=== PATIENT | female | born 1960 | race Hispanic/Latino ===

== ENCOUNTER 2019-06-28 06:52 | Inpatient (IN) | payer MEDICARE, OTHER ==
[2019-06-28] MEDS ORDERED: ONDANSETRON 4 MG/2 ML INJ IV ONE (07:12)
[2019-06-28] MEDS ORDERED: MORPHINE 4 MG/1 ML INJ IV ONE (07:12)
[2019-06-28 07:38] LABS: INR 1.03 (0.87-1.13)
[2019-06-28 07:54] LABS: Basophils # (Auto) 0.1 K/mm3 (0.0-0.1); Basophils % (Auto) 0.6 % (0.0-1.8); Eosinophils # (Auto) 0.1 K/mm3 (0.0-0.4); Eosinophils % (Auto) 1.5 % (0.0-4.3); Hemoglobin 12.4 gm/dl (10.1-14.3); Lymphocytes % (Auto) 10.3 % (13.4-35.0); Mean Corpuscular HGB Conc 33 % (30-34); Mean Corpuscular Volume 87 fl (79-97); Monocytes # (Auto) 0.5 K/mm3 (0.0-0.8); Monocytes % (Auto) 5.6 % (0.0-7.3); Platelet Count 280 K/mm3 (140-440); Red Blood Count 4.24 M/mm3 (3.65-5.03); Red Cell Distribution Width 16.7 % (13.2-15.2)
--- NOTE | 2019-06-28 08:09 | XRay Report ---
CHEST 1 VIEW INDICATION: Shortness of breath. COMPARISON: None FINDINGS: Support devices: A tracheostomy appears in good position at the level of the clavicles. Heart: Within normal limits. Lungs/Pleura: There is linear opacity at the left lung base most consistent with atelectatic changes. If fevers present, early infiltrate could be considered. The remainder of the lungs are clear. No pl eural effusion or pneumothorax. Additional findings: The bony structures are demineralized. At least 2 healing left lateral rib fract ures at levels 5 and 6 are identified. IMPRESSION: Left lower lobe opacity most consistent with atelectatic changes. Subacute left rib fractures. Signer Name: Camden Beyer Jr, MD Signed: 06/28/2019 8:04 AM Workstation Name: [id number]
[2019-06-28 08:21] LABS: BUN/Creatinine Ratio 23; Blood Urea Nitrogen 9 mg/dL (7-17); Calcium 8.7 mg/dL (8.4-10.2); Hemolysis Index 7
[2019-06-28] MEDS ORDERED: SODIUM CHLORIDE 0.9% 1000 ML 1,000 ML IV ONE (08:25)
--- NOTE | 2019-06-28 09:19 | Emergency Department Report ---
ED Shortness of Breath HPI - General Chief Complaint: Dyspnea/Respdistress Stated Complaint: NUSRAT Time Seen by Provider: 06/28/19 07:08 Source: EMS, old records reviewed Mode of arrival: Stretcher Limitations: No Limitations - History of Present Illness Initial Comments: 58-year-old female with a tracheostomy, hypertension, seizures currently at [facility] with recent history of left hip fracture presents to the hospital with complaints of shortness of breath. EMS states the patient was satting in the 50s upon their arrival to the shelter. Upon patient's arrival to the ED she was receiving a nebulized treatment with a mask and her tracheostomy was. Patient appears to have respiratory distress with inspiratory stridor upon arrival. - Related Data Allergies Allergy/AdvReac Type Severity Reaction Status Date / Time amoxicillin [From Augmentin] Allergy Anaphylaxis Verified 06/28/19 07:17 cefdinir [From Omnicef] Allergy Anaphylaxis Verified 06/28/19 07:17 cephalexin [From Keflex] Allergy Anaphylaxis Verified 06/28/19 07:17 clarithromycin Allergy Anaphylaxis Verified 06/28/19 07:17 clavulanic acid Allergy Anaphylaxis Verified 06/28/19 07:17 [From Augmentin] doxycycline Allergy Anaphylaxis Verified 06/28/19 07:17 levofloxacin [From Levaquin] Allergy Anaphylaxis Verified 06/28/19 07:17 Sulfa (Sulfonamide Allergy Anaphylaxis Verified 06/28/19 07:17 Antibiotics) ED Review of Systems ROS: Stated complaint: NUSRAT Other details as noted in HPI Comment: All other systems reviewed and negative ED Past Medical Hx - Past Medical History Previous Medical History?: Yes Hx Hypertension: Yes Hx Seizures: Yes Additional medical history: L hip fx, trach, hearing loss - Social History Smoking Status: Never Smoker ED Physical Exam - General Limitations: No Limitations - Other Other exam information: Gen.: Positive respiratory distress Head: Atraumatic Eyes: Normal appearance ENT: Moist mucous membranes Neck: Normal appearance, tracheostomy uncuffed tube Chest: Tachypnea, expiratory stridor Cardiovascular: Tachycardic regular rhythm Abdomen: Normal appearance, soft, nontender, no rebound or guarding, normal bowel sounds. No PEG tube Back: Normal appearance, nontender Extremity: Full range of motion, normal appearance, no edema Neuro: Alert, clear speech, no focal motor or sensory deficit Psychiatric: Appropriate Skin: No rash ED Course Vital Signs 06/28/19 06/28/19 06/28/19 06:59 07:08 07:28 Temperature 98.4 F Pulse Rate 123 H Respiratory 28 H Rate Blood Pressure 136/84 Blood Pressure [Left] O2 Sat by Pulse 96 99 Oximetry O2 Sat by Pulse 99 Oximetry [ Assessment] 06/28/19 06/28/19 06/28/19 07:30 07:55 08:00 Temperature 98.2 F Pulse Rate 130 H Respiratory 13 Rate Blood Pressure 117/60 117/60 Blood Pressure 114/69 [Left] O2 Sat by Pulse 99 100 100 Oximetry O2 Sat by Pulse Oximetry [ Assessment] 06/28/19 06/28/19 06/28/19 08:15 08:20 08:30 Temperature 99 F Pulse Rate 119 H 111 H Respiratory 14 15 Rate Blood Pressure 108/79 120/69 Blood Pressure 115/70 [Left] O2 Sat by Pulse 100 99 91 Oximetry O2 Sat by Pulse Oximetry [ Assessment] 06/28/19 06/28/19 06/28/19 08:45 09:00 09:15 Temperature Pulse Rate 102 H 104 H 93 H Respiratory 10 L 8 L 9 L Rate Blood Pressure 99/69 112/72 114/65 Blood Pressure [Left] O2 Sat by Pulse 100 100 Oximetry O2 Sat by Pulse Oximetry [ Assessment] 06/28/19 06/28/19 06/28/19 09:30 09:56 10:00 Temperature Pulse Rate 91 H 108 H 103 H Respiratory 7 L 12 Rate Blood Pressure 128/71 128/71 131/70 Blood Pressure [Left] O2 Sat by Pulse Oximetry O2 Sat by Pulse Oximetry [ Assessment] 06/28/19 06/28/19 06/28/19 10:15 10:30 10:45 Temperature Pulse Rate 100 H 99 H 103 H Respiratory 8 L 8 L 12 Rate Blood Pressure 135/75 142/81 131/89 Blood Pressure [Left] O2 Sat by Pulse 100 100 Oximetry O2 Sat by Pulse Oximetry [ Assessment] 06/28/19 06/28/19 11:00 11:15 Temperature Pulse Rate 101 H 106 H Respiratory 10 L 10 L Rate Blood Pressure 132/81 124/84 Blood Pressure [Left] O2 Sat by Pulse 100 Oximetry O2 Sat by Pulse Oximetry [ Assessment] - Reevaluation(s) Reevaluation #1: 06/28/19 07:08 Respiratory therapist contacted upon patient's arrival to the ED. Tracheostomy was removed and minimum secretions were obtained with suctioning. Patient placed on the Ventimask at 50% via tracheostomy. O2 saturation 99% and patient's respiratory distress has improved. ABG does not show any signs of CO2 retention and shows adequate oxygenation. Patient has a uncuffed tracheostomy tube at this time. ED Medical Decision Making - Lab Data Result diagrams: 06/28/19 07:12 06/28/19 07:12 Lab Results 06/28/19 06/28/19 06/28/19 Range/Units 06:38 07:12 07:12 WBC 9.7 (4.5-11.0) K/mm3 RBC 4.24 (3.65-5.03) M/mm3 Hgb 12.4 (10.1-14.3) gm/dl Hct 37.0 (30.3-42.9) % MCV 87 (79-97) fl MCH 29 (28-32) pg MCHC 33 (30-34) % RDW 16.7 H (13.2-15.2) % Plt Count 280 (140-440) K/mm3 Lymph % (Auto) 10.3 L (13.4-35.0) % [place] % (Auto) 5.6 (0.0-7.3) % Eos % (Auto) 1.5 (0.0-4.3) % Baso % (Auto) 0.6 (0.0-1.8) % Lymph # 1.0 L (1.2-5.4) K/mm3 [place] # 0.5 (0.0-0.8) K/mm3 Eos # 0.1 (0.0-0.4) K/mm3 Baso # 0.1 (0.0-0.1) K/mm3 Seg Neutrophils % 82.0 H (40.0-70.0) % Seg Neutrophils # 8.0 H (1.8-7.7) K/mm3 PT 13.2 (12.2-14.9) Sec. INR 1.03 (0.87-1.13) D-Dimer (0-234) ng/mlDDU POC ABG pH (7.35-7.45) POC ABG pCO2 (35-45) POC ABG pO2 (80-105) POC ABG HCO3 (22-26 mml/L) POC ABG Total CO2 (23-27mmol/L) POC ABG O2 Sat POC ABG Base Excess ((-2) - (+3)mmol/L) FiO2 % Sodium (137-145) mmol/L Potassium (3.6-5.0) mmol/L Chloride (98-107) mmol/L Carbon Dioxide (22-30) mmol/L Anion Gap mmol/L BUN (7-17) mg/dL Creatinine (0.7-1.2) mg/dL Estimated GFR ml/min BUN/Creatinine Ratio % Glucose (65-100) mg/dL Calcium (8.4-10.2) mg/dL Troponin T (0.00-0.029) ng/mL Urine Color Yellow (Yellow) Urine Turbidity Clear (Clear) Urine pH 6.0 (5.0-7.0) Ur Specific [place] 1.020 (1.003-1.030) Urine Protein >500 (Negative) mg/dL Urine Glucose (UA) Neg (Negative) mg/dL Urine Ketones Neg (Negative) mg/dL Urine Blood Sm (Negative) Urine Nitrite Neg (Negative) Urine Bilirubin Neg (Negative) Urine Urobilinogen < 2.0 (<2.0) mg/dL Ur Leukocyte Esterase Neg (Negative) Urine WBC (Auto) 5.0 (0.0-6.0) /HPF Urine RBC (Auto) 6.0 (0.0-6.0) /HPF U Epithel Cells (Auto) < 1.0 (0-13.0) /HPF Urine Bacteria (Auto) 1+ (Negative) /HPF Hyaline Casts 2 /LPF Urine Mucus Few /HPF 06/28/19 06/28/19 06/28/19 Range/Units 07:12 07:12 07:22 WBC (4.5-11.0) K/mm3 RBC (3.65-5.03) M/mm3 Hgb (10.1-14.3) gm/dl Hct (30.3-42.9) % MCV (79-97) fl MCH (28-32) pg MCHC (30-34) % RDW (13.2-15.2) % Plt Count (140-440) K/mm3 Lymph % (Auto) (13.4-35.0) % [place] % (Auto) (0.0-7.3) % Eos % (Auto) (0.0-4.3) % Baso % (Auto) (0.0-1.8) % Lymph # (1.2-5.4) K/mm3 [place] # (0.0-0.8) K/mm3 Eos # (0.0-0.4) K/mm3 Baso # (0.0-0.1) K/mm3 Seg Neutrophils % (40.0-70.0) % Seg Neutrophils # (1.8-7.7) K/mm3 PT (12.2-14.9) Sec. INR (0.87-1.13) D-Dimer > 80883 H (0-234) ng/mlDDU POC ABG pH 7.390 (7.35-7.45) POC ABG pCO2 45.1 H (35-45) POC ABG pO2 75 L (80-105) POC ABG HCO3 27.3 (22-26 mml/L) POC ABG Total CO2 29 (23-27mmol/L) POC ABG O2 Sat 95 POC ABG Base Excess 2 ((-2) - (+3)mmol/L) FiO2 50 % Sodium 120 L (137-145) mmol/L Potassium 4.1 (3.6-5.0) mmol/L Chloride 84.0 L (98-107) mmol/L Carbon Dioxide 23 (22-30) mmol/L Anion Gap 17 mmol/L BUN 9 (7-17) mg/dL Creatinine 0.4 L (0.7-1.2) mg/dL Estimated GFR > 60 ml/min BUN/Creatinine Ratio 23 % Glucose 136 H (65-100) mg/dL Calcium 8.7 (8.4-10.2) mg/dL Troponin T < 0.010 (0.00-0.029) ng/mL Urine Color (Yellow) Urine Turbidity (Clear) Urine pH (5.0-7.0) Ur Specific [place] (1.003-1.030) Urine Protein (Negative) mg/dL Urine Glucose (UA) (Negative) mg/dL Urine Ketones (Negative) mg/dL Urine Blood (Negative) Urine Nitrite (Negative) Urine Bilirubin (Negative) Urine Urobilinogen (<2.0) mg/dL Ur Leukocyte Esterase (Negative) Urine WBC (Auto) (0.0-6.0) /HPF Urine RBC (Auto) (0.0-6.0) /HPF U Epithel Cells (Auto) (0-13.0) /HPF Urine Bacteria (Auto) (Negative) /HPF Hyaline Casts /LPF Urine Mucus /HPF - EKG Data -: EKG Interpreted by Pr EKG shows normal: sinus rhythm, ST-T waves (no stemi) Rate: tachycardia (131) - EKG Data When compared to previous EKG there are: previous EKG unavailable - Radiology Data Radiology results: report reviewed CTA chest with contrast INDICATION : sob, elevated ddimer. TECHNIQUE: Axial imaging performed through the chest, with contrast bolus timing set to maximize opacification of the pulmonary arteries. 3-plane MIP reformatted images were obtained. All CT scans at this location are performed using CT dose reduction for ALARA by means of automated exposure control. 100 mL of intravenous contrast administered. Consent was obtained prior to the administration of contrast. COMPARISON: None. FINDINGS: Bolus: Contrast bolus timing is adequate. PTE: No filling defect is present to suggest PTE. Mediastinum: Heart and great vessels appear normal. No pathologic mediastinal adenopathy. Lungs: Lungs are clear except for mild bibasal subsegmental atelectasis. Upper abdomen: Limited imaging of the upper abdomen shows nothing acute. Bones: No suspicious bone lesion. IMPRESSION: Negative for PTE. No CHF or pneumonia. CHEST 1 VIEW INDICATION: Shortness of breath. COMPARISON: None FINDINGS: Support devices: A tracheostomy appears in good position at the level of the clavicles. Heart: Within normal limits. Lungs/Pleura: There is linear opacity at the left lung base most consistent with atelectatic changes. If fevers present, early infiltrate could be considered. The remainder of the lungs are clear. No pleural effusion or pneumothorax. Additional findings: The bony structures are demineralized. At least 2 healing left lateral rib fractures at levels 5 and 6 are identified. IMPRESSION: Left lower lobe opacity most consistent with atelectatic changes. Subacute left rib fractures. - Medical Decision Making bilateral doppler pending at dispo cta neg for pe + hyponatremia, NS ordered urine lytes and ua pending Plan to admit to hospitalist service - Differential Diagnosis CHF, COPD, pneumonia, pulmonary embolism, tracheostomy obstruction Critical Care Time: No Critical care attestation.: If time is entered above; I have spent that time in minutes in the direct care of this critically ill patient, excluding procedure time. ED Disposition Clinical Impression: Hyponatremia, Tracheostomy dependent, Hypoxia, Elevated d-dimer Disposition: OP ADMIT IP TO THIS HOSP Is pt being admited?: Yes Condition: Stable Time of Disposition: 11:24 (Dr Robledo/hosp)
--- NOTE | 2019-06-28 10:50 | Cat Scan Report ---
CTA chest with contrast INDICATION : sob, elevated ddimer. TECHNIQUE: Axial imaging performed through the chest, with contrast bolus timing set to maximize opa cification of the pulmonary arteries. 3-plane MIP reformatted images were obtained. All CT scans at this location are performed using CT dose reduction for ALARA by means of automated exposure control. 100 mL of intravenous contrast administered. Consent was obtained prior to the administration of cont rast. COMPARISON: None. FINDINGS: Bolus: Contrast bolus timing is adequate. PTE: No filling defect is present to suggest PTE. Mediastinum: Heart and great vessels appear normal. No pathologic mediastinal adenopathy. Lungs: Lungs are clear except for mild bibasal subsegmental atelectasis. Upper abdomen: Limited imaging of the upper abdomen shows nothing acute. Bones: No suspicious bone lesion. IMPRESSION: Negative for PTE. No CHF or pneumonia. Signer Name: Huy Quevedo MD Signed: 06/28/2019 10:46 AM Workstation Name: [id number]
[2019-06-28 11:11] LABS: Bacteria,Urine 1+ /HPF (Negative); Bilirubin,Urine NEG (Negative); Blood,Urine SM (Negative); Color,Urine Yellow (Yellow); Hyaline Casts,Urine 2 /LPF; Mucus,Urine FEW /HPF; Urobilinogen,Urine < 2.0 mg/dL (<2.0)
[2019-06-28 11:13] LABS: Protein,Urine >500 mg/dL (Negative)
[2019-06-28] MEDS ORDERED: ALBUTEROL 2.5 MG/3 ML NEBU IH PRN (12:20)
--- NOTE | 2019-06-28 12:20 | History and Physical Report ---
History of Present Illness Chief complaint: She cant breathe History of present illness: 58 YO Female Skilled [facility] Resident at [facility] with Chronic Respiratory Failure with Trach in place, HTN, Seizure Disorder, Debility presents to ED for evaluation. Pt is unable to provide detailed history. Pt history taken from medical record as well as ED staff, and [facility] staff. As per staff, the patient was found to be in respiratory distress this morning with discharge coming from [facility] site. Pulse oximetry was taken and the patient was found to have pulse oximetry in the 50's. EMS notified and upon arrival the patient was found to be in respiratory distress and treated with supplemental oxygen and nebulizer therapy without significant improvement. Pt transported to [facility]. Pt seen and evaluated in ED and found to have Acute on Chronic hypoxemic Respiratory Failure complicated by LLL Pneumonia. At time of my exam the patient is lethargic, and using accessory muscles to breathe S/P nebulizer therapy and is unable to provide history. Pt is ill appearing. Pt admitted to IMCU and initiated on HCAP protocol. No prior admission for review. No medication listed at time of admission for reconciliation. Past History Past Medical History: hypertension, other (Debility, Seizure Disorder) Past Surgical History: Other (Trach, Left Hip Surgery) Social history: . denies: smoking, alcohol abuse, prescription drug abuse Family history: hypertension Medications and Allergies Allergies Allergy/AdvReac Type Severity Reaction Status Date / Time amoxicillin [From Augmentin] Allergy Anaphylaxis Verified 06/28/19 07:17 cefdinir [From Omnicef] Allergy Anaphylaxis Verified 06/28/19 07:17 cephalexin [From Keflex] Allergy Anaphylaxis Verified 06/28/19 07:17 clarithromycin Allergy Anaphylaxis Verified 06/28/19 07:17 clavulanic acid Allergy Anaphylaxis Verified 06/28/19 07:17 [From Augmentin] doxycycline Allergy Anaphylaxis Verified 06/28/19 07:17 levofloxacin [From Levaquin] Allergy Anaphylaxis Verified 06/28/19 07:17 Sulfa (Sulfonamide Allergy Anaphylaxis Verified 06/28/19 07:17 Antibiotics) Review of Systems ROS unobtainable: due to mental status Exam - Constitutional Vitals: Temp Pulse Resp BP Pulse Ox 99 F 102 H 9 L 124/76 94 06/28/19 08:20 06/28/19 12:00 06/28/19 12:00 06/28/19 12:00 06/28/19 12:00 General appearance: Present: mild distress - EENT Eyes: Present: miosis ENT: dentition normal, other - Neck Neck: Present: supple, normal ROM, other (trach in place,) - Respiratory Respiratory effort: labored, accessory muscle use, stridor Respiratory: bilateral: diminished, rhonchi - Cardiovascular Rhythm: other (tachycardia) Heart Sounds: Present: S1 & S2. Absent: rub, click - Extremities Extremities: abnormal Extremity abnormal: deformity Peripheral Pulses: within normal limits - Abdominal General gastrointestinal: Present: soft, non-tender, non-distended, normal bowel sounds Female genitourinary: Present: normal - Integumentary Integumentary: Present: clear, dry, pale, decreased turgor - Musculoskeletal Musculoskeletal: generalized weakness - Psychiatric Psychiatric: no appropriate mood/affect, no intact judgment & insight, no memory intact - Neurologic Neurologic: moves all extremities, no gait normal Results - Labs CBC & Chem 7: 06/28/19 07:12 06/28/19 07:12 Labs: Abnormal lab results 06/28/19 06/28/19 06/28/19 Range/Units 07:12 07:12 07:12 RDW 16.7 H (13.2-15.2) % Lymph % (Auto) 10.3 L (13.4-35.0) % Lymph # 1.0 L (1.2-5.4) K/mm3 Seg Neutrophils % 82.0 H (40.0-70.0) % Seg Neutrophils # 8.0 H (1.8-7.7) K/mm3 D-Dimer > 28895 H (0-234) ng/mlDDU POC ABG pCO2 (35-45) POC ABG pO2 (80-105) Sodium 120 L (137-145) mmol/L Chloride 84.0 L (98-107) mmol/L Creatinine 0.4 L (0.7-1.2) mg/dL Glucose 136 H (65-100) mg/dL 06/28/19 Range/Units 07:22 RDW (13.2-15.2) % Lymph % (Auto) (13.4-35.0) % Lymph # (1.2-5.4) K/mm3 Seg Neutrophils % (40.0-70.0) % Seg Neutrophils # (1.8-7.7) K/mm3 D-Dimer (0-234) ng/mlDDU POC ABG pCO2 45.1 H (35-45) POC ABG pO2 75 L (80-105) Sodium (137-145) mmol/L Chloride (98-107) mmol/L Creatinine (0.7-1.2) mg/dL Glucose (65-100) mg/dL Assessment and Plan - Patient Problems (1) Acute and chronic respiratory failure Current Visit: Yes Status: Acute Qualifiers: Respiratory failure complication: hypoxia Qualified Code(s): J96.21 - Acute and chronic respiratory failure with hypoxia Plan to address problem: Admit to IMCU, Chest X ray, D dimer, CTA chest to evaluate for PE, pulse oximetry, nebulizer therapy, NIPPV as clinically indicated, ABG, pulmonary toilet. Trach Care. (2) Pneumonia Current Visit: Yes Status: Acute Qualifiers: Laterality: left Lung location: lower lobe of lung Plan to address problem: HCAP Protocol: IV antibiotic therapy, IVF resuscitation therapy, Chest X ray, CTA chest, supplemental oxygen, nebulizer therapy, pulse oximetry, CBC, CMP, blood cultures. (3) HTN (hypertension) Current Visit: Yes Status: Acute Qualifiers: Hypertension type: essential hypertension Qualified Code(s): I10 - Essential (primary) hypertension Plan to address problem: Monitor BP q shift, supportive care. (4) Seizure Current Visit: Yes Status: Acute Plan to address problem: Seizure precautions, supportive care, neuro checks (5) Debility Current Visit: Yes Status: Acute Plan to address problem: supportive care, PT consulted (6) DVT prophylaxis Current Visit: Yes Status: Acute Plan to address problem: SCD to BLE while in bed, prophylactic heparin.
[2019-06-28] MEDS ORDERED: VANCOMYCIN 1,000 MG in SODIUM CHLORIDE 0.9% 500 ML 500 ML IV ONE (12:23)
[2019-06-28] MEDS ORDERED: VANCOMYCIN PHARMACY TO DOSE IV SCH (13:00)
[2019-06-28] MEDS: VANCOMYCIN/NS 1 GM/250 ML 1 GM/250 ML BAG IV SCH (15:18)
[2019-06-28] MEDS ORDERED: NON-FORMULARY EACH (Ondansetron [Zofran Tab] 4 MG) PO PRN (17:33)
[2019-06-28] MEDS ORDERED: IPRATROPIUM/ALBUTEROL SULFATE 3 ML AMPUL.NEB IH SCH (18:00)
[2019-06-28] MEDS ORDERED: ONDANSETRON 4 MG ODT TAB PO PRN (18:05)
[2019-06-28] MEDS: ACETAMINOPHEN 325 MG TAB PO SCH (18:30)
[2019-06-28] MEDS: IPRATROPIUM/ALBUTEROL SULFATE 3 ML AMPUL.NEB IH SCH (19:36)
[2019-06-28] MEDS ORDERED: hydrALAZINE 20 MG/1 ML INJ IV PRN (21:48)
[2019-06-28] MEDS: traMADol 50 MG TAB PO SCH (21:52)
[2019-06-28] MEDS: METOPROLOL TARTRATE 25 MG TAB PO SCH (21:52)
[2019-06-28] MEDS ORDERED: NON-FORMULARY EACH (Levetiracetam [Keppra Tab] 1,000 MG) PO SCH (22:00)
[2019-06-28] MEDS ORDERED: levETIRAcetam 500 MG TAB PO SCH (22:00)
[2019-06-28] MEDS: levETIRAcetam 1,000 MG in DEXTROSE 5% IN WATER 100 ML IV SCH (22:41)
[2019-06-28] MEDS: HEPARIN 5,000 UNIT/1 ML VIAL SUB-Q SCH (22:41)
--- NOTE | 2019-06-29 00:24 | Vascular Lab Report ---
DUPLEX DOPPLER LOWER EXTREMITY VEINS, BILATERAL INDICATION / CLINICAL INFORMATION: elevated d-dimer. TECHNIQUE: Duplex doppler imaging was performed through the veins of both lower extremities using venous liliana john and other maneuvers. COMPARISON: None available. FINDINGS: RIGHT COMMON FEMORAL VEIN: Negative. RIGHT FEMORAL VEIN: Negative. RIGHT POPLITEAL VEIN: Negative. RIGHT CALF VEINS: Negative. LEFT COMMON FEMORAL VEIN: Negative. LEFT FEMORAL VEIN: Negative. LEFT POPLITEAL VEIN: Negative. LEFT CALF VEINS: Negative. ADDITIONAL FINDINGS: None. IMPRESSION: 1. No sonographic evidence for DVT in either lower extremity. Signer Name: Nicki Hernandez MD Signed: 06/29/2019 12:20 AM Workstation Name: [id number]
[2019-06-29] MEDS: IPRATROPIUM/ALBUTEROL SULFATE 3 ML AMPUL.NEB IH SCH ×4 (02:43→21:29)
[2019-06-29] MEDS: VANCOMYCIN/NS 1 GM/250 ML 1 GM/250 ML BAG IV SCH ×2 (04:22→13:26)
[2019-06-29 05:23] LABS: Hematocrit TNR % (30.3-42.9); Hemoglobin TNR gm/dl (10.1-14.3); Red Blood Count TNR M/mm3 (3.65-5.03)
[2019-06-29 05:24] LABS: Eosinophils % (Auto) TNR % (0.0-4.3); Lymphocytes % (Auto) TNR % (13.4-35.0); Mean Corpuscular HGB Conc TNR % (30-34); Mean Corpuscular Volume TNR fl (79-97); Mean Platelet Volume TNR fl (6-12); Monocytes % (Auto) TNR % (0.0-7.3); Platelet Count TNR K/mm3 (140-440); Red Cell Distribution Width TNR % (13.2-15.2)
[2019-06-29 05:25] LABS: Basophils # (Auto) TNR K/mm3 (0.0-0.1); Basophils % (Auto) TNR % (0.0-1.8); Eosinophils # (Auto) TNR K/mm3 (0.0-0.4); Lymphocytes # (Auto) TNR K/mm3 (1.2-5.4); Monocytes # (Auto) TNR K/mm3 (0.0-0.8)
[2019-06-29 05:39] LABS: Basophils # (Auto) 0.1 K/mm3 (0.0-0.1); Eosinophils # (Auto) 0.1 K/mm3 (0.0-0.4); Eosinophils % (Auto) 0.9 % (0.0-4.3); Hemoglobin 11.2 gm/dl (10.1-14.3); Lymphocytes % (Auto) 13.5 % (13.4-35.0); Mean Corpuscular HGB Conc 33 % (30-34); Mean Corpuscular Volume 89 fl (79-97); Monocytes # (Auto) 0.7 K/mm3 (0.0-0.8); Monocytes % (Auto) 8.8 % (0.0-7.3); Platelet Count 281 K/mm3 (140-440); Red Blood Count 3.83 M/mm3 (3.65-5.03); Red Cell Distribution Width 17.4 % (13.2-15.2)
[2019-06-29 06:08] LABS: Alanine Aminotransferase 15 units/L (7-56); BUN/Creatinine Ratio 23; Blood Urea Nitrogen 7 mg/dL (7-17); Calcium 8.5 mg/dL (8.4-10.2); Hemolysis Index 6
[2019-06-29] MEDS: ACETAMINOPHEN 325 MG TAB PO SCH ×4 (06:41→20:06)
[2019-06-29] MEDS: SODIUM CHLORIDE 1 GM TAB PO SCH ×3 (07:30→20:06)
[2019-06-29] MEDS: HEPARIN 5,000 UNIT/1 ML VIAL SUB-Q SCH ×2 (10:32→22:27)
[2019-06-29] MEDS: levETIRAcetam 1,000 MG in DEXTROSE 5% IN WATER 100 ML IV SCH ×2 (10:32→22:26)
[2019-06-29] MEDS: MORPHINE 2 MG/1 ML INJ IV PRN ×2 (11:39→19:28)
--- NOTE | 2019-06-29 15:43 | Fluoroscopy Report ---
MODIFIED BARIUM SWALLOW INDICATION: Swallow evaluation on patient with tracheostomy/dysphagia TECHNIQUE: Swallowing was evaluated in the lateral position under direct fluoroscopy. FINDINGS: The patient was evaluated with thin liquids, puree, semisolids and solid consistencies.. Penetration was noted with all consistencies. One episode of silent aspiration was noted with thin liquids. Please refer to the formal report by speech therapy. IMPRESSION: Silent aspiration was witnessed with thin liquids. See above. Fluoroscopic time: 2.3 minutes Number of fluoroscopic images: 1 Signer Name: Camden Beyer Jr, MD Signed: 06/29/2019 3:39 PM Workstation Name: [id number]
--- NOTE | 2019-06-29 16:59 | Progress Note ---
Assessment and Plan / Acute and chronic respiratory failure cont pulse oximetry, nebulizer therapy, NIPPV as clinically indicated, ABG, pulmonary toilet. Trach Care. Pulmonary consulted / Pneumonia, suspected HCAP Protocol: cont IV antibiotic therapy, IVF resuscitation therapy,supplemental oxygen, nebulizer therapy, pulse oximetry, / HTN (hypertension) Monitor BP q shift, supportive care. / Seizure Seizure precautions, supportive care, neuro checks / Debility supportive care, PT consulted / DVT prophylaxis SCD to BLE while in bed, prophylactic heparin. Brief History: 58-year-old female with a tracheostomy, hypertension, seizures currently at [facility] with recent history of left hip fracture presents to the hospital with complaints of shortness of breath. EMS states the patient was satting in the 50s upon their arrival to the correction. Upon patient's arrival to the ED she was receiving a nebulized treatment with a mask and her tracheostomy was. Patient appears to have respiratory distress with inspiratory stridor upon arrival. Physical exam: General appearance: Present: mild distress - EENT Eyes: Present: miosis ENT: dentition normal, other - Neck Neck: Present: supple, normal ROM, other (trach in place,) - Respiratory Respiratory effort: labored, accessory muscle use, stridor Respiratory: bilateral: diminished, rhonchi - Cardiovascular Rhythm: other (tachycardia) Heart Sounds: Present: S1 & S2. Absent: rub, click - Extremities Extremities: abnormal Extremity abnormal: deformity Peripheral Pulses: within normal limits - Abdominal General gastrointestinal: Present: soft, non-tender, non-distended, normal bowel sounds Female genitourinary: Present: normal - Integumentary Integumentary: Present: clear, dry, pale, decreased turgor - Musculoskeletal Musculoskeletal: generalized weakness - Psychiatric Psychiatric: no appropriate mood/affect, no intact judgment & insight, no memory intact - Neurologic Neurologic: moves all extremities, no gait normal Subjective Date of service: 06/29/19 Interval history: Patient seen and examined patient on trach, able to follow commend Objective - Constitutional Vitals: Vital Signs - 12hr 06/29/19 06/29/19 06/29/19 05:00 06:00 07:00 Temperature Pulse Rate 85 86 85 Pulse Rate [ Bilateral] Pulse Rate [ From Monitor] Respiratory 11 L 12 12 Rate Respiratory Rate [Bilateral ] Blood Pressure 118/68 121/67 120/73 O2 Sat by Pulse 100 100 Oximetry 06/29/19 06/29/19 06/29/19 08:00 09:00 09:12 Temperature 99.7 F H Pulse Rate 91 H 86 Pulse Rate [ 94 H Bilateral] Pulse Rate [ 91 H From Monitor] Respiratory 12 10 L Rate Respiratory 16 Rate [Bilateral ] Blood Pressure 118/71 113/89 O2 Sat by Pulse 100 100 Oximetry 06/29/19 06/29/19 09:14 12:00 Temperature 97.5 F L Pulse Rate Pulse Rate [ Bilateral] Pulse Rate [ From Monitor] Respiratory Rate Respiratory Rate [Bilateral ] Blood Pressure O2 Sat by Pulse 100 Oximetry - Labs CBC & Chem 7: 06/29/19 05:25 06/30/19 09:36 Labs: Abnormal lab results 06/29/19 06/29/19 Range/Units 04:29 05:25 RDW 17.4 H (13.2-15.2) % Carbon % (Auto) 8.8 H (0.0-7.3) % Lymph # 1.0 L (1.2-5.4) K/mm3 Seg Neutrophils % 75.8 H (40.0-70.0) % Sodium 126 L (137-145) mmol/L Chloride 90.6 L (98-107) mmol/L Carbon Dioxide 19 L (22-30) mmol/L Creatinine 0.3 L (0.7-1.2) mg/dL Alkaline Phosphatase 227 H (35-129) units/L Albumin 3.0 L (3.9-5) g/dL
[2019-06-29] MEDS: traMADol 50 MG TAB PO SCH ×2 (19:54→22:26)
[2019-06-29] MEDS: ESCITALOPRAM 10 MG TAB PO SCH (19:54)
[2019-06-29] MEDS: METOPROLOL TARTRATE 25 MG TAB PO SCH ×2 (19:54→22:26)
[2019-06-30] MEDS: ACETAMINOPHEN 325 MG TAB PO SCH ×4 (00:15→17:43)
[2019-06-30] MEDS: VANCOMYCIN/NS 1 GM/250 ML 1 GM/250 ML BAG IV SCH ×2 (03:10→14:02)
[2019-06-30] MEDS: MORPHINE 2 MG/1 ML INJ IV PRN (03:11)
[2019-06-30] MEDS: IPRATROPIUM/ALBUTEROL SULFATE 3 ML AMPUL.NEB IH SCH ×4 (05:11→21:13)
[2019-06-30] MEDS: HEPARIN 5,000 UNIT/1 ML VIAL SUB-Q SCH ×2 (10:07→22:10)
[2019-06-30] MEDS: levETIRAcetam 1,000 MG in DEXTROSE 5% IN WATER 100 ML IV SCH ×2 (10:07→22:09)
[2019-06-30] MEDS: METOPROLOL TARTRATE 25 MG TAB PO SCH ×2 (10:08→22:09)
[2019-06-30] MEDS: traMADol 50 MG TAB PO SCH ×2 (10:08→22:09)
[2019-06-30] MEDS: SODIUM CHLORIDE 1 GM TAB PO SCH ×3 (10:09→17:43)
[2019-06-30] MEDS: ESCITALOPRAM 10 MG TAB PO SCH (10:09)
[2019-06-30 10:50] LABS: BUN/Creatinine Ratio 20; Blood Urea Nitrogen 6 mg/dL (7-17); Calcium 8.9 mg/dL (8.4-10.2); Hemolysis Index 265
[2019-06-30] MEDS ORDERED: AZTREONAM/NS 1 GM/50 ML 1 GM/50 ML VIAL IV ONE (11:00)
--- NOTE | 2019-06-30 15:58 | Event Note ---
Date: 06/30/19 Received consultation for pneumonia. patient is currently without evidence of sepsis, no fever, leukocytosis or bandemia. Reviewed CXR and CTA chest w/o evidence of consolidation. Likely COPD exacerabation which commonly can be caused by viruses. Will request procalcitonin and if normal will stop antibiotics. Full consultation to follow-up.
[2019-06-30] MEDS ORDERED: SODIUM POLYSTYRENE 15 GM/60 ML ORAL LIQD PO PRN (17:14)
--- NOTE | 2019-06-30 23:54 | Progress Note ---
Assessment and Plan / Acute and chronic respiratory failure likely from aspiration Pneumonitis cont pulse oximetry, nebulizer therapy, NIPPV as clinically indicated, ABG, pulmonary toilet. Trach Care. Pulmonary following / Pneumonia, suspected placed on HCAP Protocol: IV antibiotic therapy, IVF resuscitation therapy,supplemental oxygen, nebulizer therapy, pulse oximetry, CTA chest showed no PNA ID recommended to stop abx / HTN (hypertension) Monitor BP q shift, supportive care. / Seizure Seizure precautions, supportive care, neuro checks / Debility supportive care, PT consulted /Moderate PCM, nutrition consulted / DVT prophylaxis SCD to BLE while in bed, prophylactic heparin. Disposition: SNF if remains stable after stopping abx Brief History: 58-year-old female with a tracheostomy, hypertension, seizures currently at [facility] with recent history of left hip fracture presents to the hospital with complaints of shortness of breath. EMS states the patient was satting in the 50s upon their arrival to the [facility]. Upon patient's arrival to the ED she was receiving a nebulized treatment with a mask and her tracheostomy was. Patient appears to have respiratory distress with inspiratory stridor upon arrival. Physical exam: General appearance: Present: no distress - EENT Eyes: Present: miosis ENT: dentition normal, other - Neck Neck: Present: supple, normal ROM, other (trach in place,) - Respiratory Respiratory effort: nonlabored, no accessory muscle use, Respiratory: bilateral: diminished, rhonchi - Cardiovascular Rhythm: other (tachycardia) Heart Sounds: Present: S1 & S2. Absent: rub, click - Extremities Extremities: abnormal Extremity abnormal: deformity Peripheral Pulses: within normal limits - Abdominal General gastrointestinal: Present: soft, non-tender, non-distended, normal bowel sounds Female genitourinary: Present: normal - Integumentary Integumentary: Present: clear, dry, pale, decreased turgor - Musculoskeletal Musculoskeletal: generalized weakness - Psychiatric Psychiatric: no appropriate mood/affect, no intact judgment & insight, no memory intact - Neurologic Neurologic: moves all extremities, no gait normal Subjective Date of service: 06/30/19 Interval history: Patient seen and examined patient on trach, able to follow commend speech recommended pureed diet Objective - Constitutional Vitals: Vital Signs - 12hr 06/30/19 06/30/19 06/30/19 12:00 13:00 14:00 Temperature 97.9 F Pulse Rate 68 66 68 Pulse Rate [ Bilateral] Pulse Rate [ 71 From Monitor] Respiratory 13 8 L 9 L Rate Respiratory Rate [Bilateral ] Blood Pressure 138/69 145/77 133/74 Blood Pressure [Left] O2 Sat by Pulse 100 100 98 Oximetry O2 Sat by Pulse Oximetry [ Assessment] 06/30/19 06/30/19 06/30/19 14:30 15:00 16:00 Temperature 98 F Pulse Rate 74 71 Pulse Rate [ 66 Bilateral] Pulse Rate [ From Monitor] Respiratory 8 L 9 L Rate Respiratory 16 Rate [Bilateral ] Blood Pressure 133/74 133/74 Blood Pressure [Left] O2 Sat by Pulse Oximetry O2 Sat by Pulse Oximetry [ Assessment] 06/30/19 06/30/19 06/30/19 16:59 17:00 17:10 Temperature Pulse Rate 87 80 Pulse Rate [ Bilateral] Pulse Rate [ From Monitor] Respiratory 15 8 L Rate Respiratory Rate [Bilateral ] Blood Pressure 136/86 136/86 Blood Pressure [Left] O2 Sat by Pulse 100 100 Oximetry O2 Sat by Pulse 100 Oximetry [ Assessment] 06/30/19 06/30/19 06/30/19 17:20 17:30 17:40 Temperature Pulse Rate 77 74 75 Pulse Rate [ Bilateral] Pulse Rate [ From Monitor] Respiratory 9 L 13 10 L Rate Respiratory Rate [Bilateral ] Blood Pressure 136/86 136/86 136/86 Blood Pressure [Left] O2 Sat by Pulse 100 100 100 Oximetry O2 Sat by Pulse Oximetry [ Assessment] 06/30/19 06/30/19 06/30/19 17:50 18:00 18:10 Temperature Pulse Rate 77 82 79 Pulse Rate [ Bilateral] Pulse Rate [ From Monitor] Respiratory 13 13 7 L Rate Respiratory Rate [Bilateral ] Blood Pressure 136/86 136/86 132/78 Blood Pressure [Left] O2 Sat by Pulse 100 100 100 Oximetry O2 Sat by Pulse Oximetry [ Assessment] 06/30/19 06/30/19 06/30/19 18:20 18:30 18:40 Temperature Pulse Rate 84 77 82 Pulse Rate [ Bilateral] Pulse Rate [ From Monitor] Respiratory 8 L 8 L 13 Rate Respiratory Rate [Bilateral ] Blood Pressure 132/78 132/78 132/78 Blood Pressure [Left] O2 Sat by Pulse 100 100 100 Oximetry O2 Sat by Pulse Oximetry [ Assessment] 06/30/19 06/30/19 06/30/19 19:38 19:44 20:00 Temperature 98.0 F 98.2 F Pulse Rate 77 76 76 Pulse Rate [ Bilateral] Pulse Rate [ From Monitor] Respiratory 18 18 Rate Respiratory Rate [Bilateral ] Blood Pressure 124/75 Blood Pressure 124/75 [Left] O2 Sat by Pulse 100 100 Oximetry O2 Sat by Pulse Oximetry [ Assessment] 06/30/19 06/30/19 06/30/19 21:15 22:09 23:23 Temperature 98.0 F Pulse Rate 76 72 Pulse Rate [ 80 Bilateral] Pulse Rate [ From Monitor] Respiratory 18 18 Rate Respiratory 16 Rate [Bilateral ] Blood Pressure 135/73 Blood Pressure [Left] O2 Sat by Pulse 98 100 Oximetry O2 Sat by Pulse 98 Oximetry [ Assessment] - Labs CBC & Chem 7: 06/29/19 05:25 06/30/19 09:36 Labs: Abnormal lab results 06/30/19 06/30/19 Range/Units 09:36 14:13 Sodium 127 L (137-145) mmol/L Potassium 5.6 H D (3.6-5.0) mmol/L Chloride 91.9 L (98-107) mmol/L BUN 6 L (7-17) mg/dL Creatinine 0.3 L (0.7-1.2) mg/dL Vancomycin Trough 20.5 H (5.0-20.0) ug/mL
[2019-07-01] MEDS: IPRATROPIUM/ALBUTEROL SULFATE 3 ML AMPUL.NEB IH SCH ×4 (03:59→20:39)
[2019-07-01] MEDS: ACETAMINOPHEN 325 MG TAB PO SCH ×4 (06:05→17:52)
--- NOTE | 2019-07-01 09:01 | Progress Note ---
Assessment and Plan Assessment and plan: --Acute and chronic respiratory failure: likely from aspiration Pneumonia h/o Tracheostomy,Trach care cont pulse oximetry, nebulizer therapy, NIPPV as clinically indicated, pulmonary toilet. Trach Care. Pulmonary following --Pneumonia, suspected cont IV antibiotic therapy, IVF resuscitation therapy, supplemental oxygen, nebulizer therapy, pulse oximetry, ID recommended to monitor off abx --Hyponatremia: mild improvement cont ,IV fluids,monitor electrolytes --HTN (hypertension);Well controlled today Monitor BP q shift, supportive care. -- H/O Seizure: Seizure precautions,keppra,supportive care. -- Gen .Debility supportive care, PT consulted --Moderate malnutrition/hypoalbuminemia: nutrition supplements, nutrition consult --DVT prophylaxis SCD to BLE while in bed, prophylactic heparin. Disposition: SNF if remains stable after stopping abx Plan of care reviwed with the nurse and case management History Interval history: Patient seen and examined medical records reviewed No new complaints Hospitalist Physical - Constitutional Vitals: Temp Pulse Resp BP Pulse Ox 98.0 F 98 H 18 128/80 97 07/01/19 08:56 07/01/19 08:56 07/01/19 08:56 07/01/19 08:56 07/01/19 08:56 General appearance: Present: no acute distress, other (s/p tracheostomy ) - EENT Eyes: Present: PERRL, EOM intact - Neck Neck: Present: supple, other (trach) - Respiratory Respiratory effort: normal Respiratory: bilateral: diminished, rhonchi, negative: rales, wheezing - Cardiovascular Rhythm: regular Heart Sounds: Present: S1 & S2 - Extremities Extremities: no ischemia, No edema - Abdominal General gastrointestinal: soft, non-tender, non-distended, normal bowel sounds - Integumentary Integumentary: Present: clear, warm - Psychiatric Psychiatric: appropriate mood/affect, other (tracheostomy) - Neurologic Neurologic: moves all extremities Results - Labs CBC & Chem 7: 06/29/19 05:25 07/01/19 09:19 Labs: Laboratory Last Values WBC 7.6 K/mm3 (4.5-11.0) 06/29/19 05:25 RBC 3.83 M/mm3 (3.65-5.03) 06/29/19 05:25 Hgb 11.2 gm/dl (10.1-14.3) 06/29/19 05:25 Hct 34.0 % (30.3-42.9) 06/29/19 05:25 MCV 89 fl (79-97) 06/29/19 05:25 MCH 29 pg (28-32) 06/29/19 05:25 MCHC 33 % (30-34) 06/29/19 05:25 RDW 17.4 % (13.2-15.2) H 06/29/19 05:25 Plt Count 281 K/mm3 (140-440) 06/29/19 05:25 Lymph % (Auto) 13.5 % (13.4-35.0) 06/29/19 05:25 [place] % (Auto) 8.8 % (0.0-7.3) H 06/29/19 05:25 Eos % (Auto) 0.9 % (0.0-4.3) 06/29/19 05:25 Baso % (Auto) 1.0 % (0.0-1.8) 06/29/19 05:25 Lymph # 1.0 K/mm3 (1.2-5.4) L 06/29/19 05:25 [place] # 0.7 K/mm3 (0.0-0.8) 06/29/19 05:25 Eos # 0.1 K/mm3 (0.0-0.4) 06/29/19 05:25 Baso # 0.1 K/mm3 (0.0-0.1) 06/29/19 05:25 Add Manual Diff TNR 06/29/19 04:29 Seg Neutrophils % 75.8 % (40.0-70.0) H 06/29/19 05:25 Seg Neutrophils # 5.8 K/mm3 (1.8-7.7) 06/29/19 05:25 PT 13.2 Sec. (12.2-14.9) 06/28/19 07:12 INR 1.03 (0.87-1.13) 06/28/19 07:12 D-Dimer > 80373 ng/mlDDU (0-234) H 06/28/19 07:12 POC ABG pH 7.390 (7.35-7.45) 06/28/19 07:22 POC ABG pCO2 45.1 (35-45) H 06/28/19 07:22 POC ABG pO2 75 (80-105) L 06/28/19 07:22 POC ABG HCO3 27.3 (22-26 mml/L) 06/28/19 07:22 POC ABG Total CO2 29 (23-27mmol/L) 06/28/19 07:22 POC ABG O2 Sat 95 06/28/19 07:22 POC ABG Base Excess 2 ((-2) - (+3)mmol/L) 06/28/19 07:22 FiO2 50 % 06/28/19 07:22 Sodium 127 mmol/L (137-145) L 06/30/19 09:36 Potassium 5.6 mmol/L (3.6-5.0) H D 06/30/19 09:36 Chloride 91.9 mmol/L (98-107) L 06/30/19 09:36 Carbon Dioxide 22 mmol/L (22-30) 06/30/19 09:36 Anion Gap 19 mmol/L 06/30/19 09:36 BUN 6 mg/dL (7-17) L 06/30/19 09:36 Creatinine 0.3 mg/dL (0.7-1.2) L 06/30/19 09:36 Estimated GFR > 60 ml/min 06/30/19 09:36 BUN/Creatinine Ratio 20 % 06/30/19 09:36 Glucose 81 mg/dL (65-100) 06/30/19 09:36 POC Glucose 94 (70-105) 06/30/19 12:30 Calcium 8.9 mg/dL (8.4-10.2) 06/30/19 09:36 Total Bilirubin 0.50 mg/dL (0.1-1.2) 06/29/19 04:29 AST 24 units/L (5-40) 06/29/19 04:29 ALT 15 units/L (7-56) 06/29/19 04:29 Alkaline Phosphatase 227 units/L (35-129) H 06/29/19 04:29 Troponin T < 0.010 ng/mL (0.00-0.029) 06/28/19 07:12 Total Protein 6.7 g/dL (6.3-8.2) 06/29/19 04:29 Albumin 3.0 g/dL (3.9-5) L 06/29/19 04:29 Albumin/Globulin Ratio 0.8 % 06/29/19 04:29 Urine Color Yellow (Yellow) 06/28/19 06:38 Urine Turbidity Clear (Clear) 06/28/19 06:38 Urine pH 6.0 (5.0-7.0) 06/28/19 06:38 Ur Specific [place] 1.020 (1.003-1.030) 06/28/19 06:38 Urine Protein >500 mg/dL (Negative) 06/28/19 06:38 Urine Glucose (UA) Neg mg/dL (Negative) 06/28/19 06:38 Urine Ketones Neg mg/dL (Negative) 06/28/19 06:38 Urine Blood Sm (Negative) 06/28/19 06:38 Urine Nitrite Neg (Negative) 06/28/19 06:38 Urine Bilirubin Neg (Negative) 06/28/19 06:38 Urine Urobilinogen < 2.0 mg/dL (<2.0) 06/28/19 06:38 Ur Leukocyte Esterase Neg (Negative) 06/28/19 06:38 Urine WBC (Auto) 5.0 /HPF (0.0-6.0) 06/28/19 06:38 Urine RBC (Auto) 6.0 /HPF (0.0-6.0) 06/28/19 06:38 U Epithel Cells (Auto) < 1.0 /HPF (0-13.0) 06/28/19 06:38 Urine Bacteria (Auto) 1+ /HPF (Negative) 06/28/19 06:38 Hyaline Casts 2 /LPF 06/28/19 06:38 Urine Mucus Few /HPF 06/28/19 06:38 Vancomycin Trough 20.5 ug/mL (5.0-20.0) H 06/30/19 14:13 Active Medications - Current Medications Current Medications: Generic Name Dose Route Start Last Admin Trade Name Freq PRN Reason Stop Dose Admin Acetaminophen 650 mg 06/28/19 18:00 07/01/19 06:05 Tylenol PO 650 mg Q6H ROSE Administration Albuterol 2.5 mg 06/28/19 12:20 Proventil IH Q3HRT PRN Shortness Of Breath Albuterol/Ipratropium 1 ampul 06/28/19 20:00 07/01/19 07:55 Duoneb *Not For Prn Use* IH 1 ampul Q6HRT ROSE Administration Escitalopram Oxalate 10 mg 06/29/19 10:00 06/30/19 10:09 Lexapro PO 10 mg DAILY ROSE Administration Heparin Sodium (Porcine) 5,000 unit 06/28/19 22:00 06/30/19 22:10 Heparin SUB-Q 5,000 unit Q12HR ROSE Administration Hydralazine HCl 5 mg 06/28/19 21:48 Apresoline IV Q6H PRN Hypertension Levetiracetam 1,000 mg/ 110 mls @ 400 mls/hr 06/28/19 22:00 06/30/19 22:09 Dextrose IV 400 mls/hr Q12HR ROSE Administration Metoprolol Tartrate 25 mg 06/28/19 22:00 06/30/19 22:09 Lopressor PO 25 mg BID ROSE Administration Morphine Sulfate 2 mg 06/28/19 17:34 06/30/19 03:11 Morphine IV 2 mg Q4H PRN Administration Pain, Moderate (4-6) Ondansetron HCl 4 mg 06/28/19 18:05 Zofran Odt PO Q6H PRN Nausea And Vomiting Sodium Chloride 10 ml 06/28/19 22:00 06/30/19 22:10 Sodium Chloride Flush Syringe 10 Ml IV 10 ml BID ROSE Administration Sodium Chloride 10 ml 06/28/19 12:20 Sodium Chloride Flush Syringe 10 Ml IV PRN PRN LINE FLUSH Sodium Chloride 1 gm 06/29/19 07:30 06/30/19 17:43 Sodium Chloride PO 1 gm AC ROSE Administration Sodium Polystyrene Sulfonate 15 gm 06/30/19 17:14 Kionex PO Q6HR PRN Hyperkalemia Tramadol HCl 50 mg 06/28/19 22:00 06/30/19 22:09 Ultram PO 50 mg BID ROSE Administration
[2019-07-01] MEDS: ESCITALOPRAM 10 MG TAB PO SCH (09:06)
[2019-07-01] MEDS: traMADol 50 MG TAB PO SCH ×2 (09:06→21:53)
[2019-07-01] MEDS: METOPROLOL TARTRATE 25 MG TAB PO SCH ×2 (09:14→21:59)
[2019-07-01] MEDS: SODIUM CHLORIDE 1 GM TAB PO SCH ×3 (09:14→16:45)
[2019-07-01] MEDS ORDERED: VANCOMYCIN 750 MG in SODIUM CHLORIDE 0.9% 250ML 250 ML IV SCH (10:00)
[2019-07-01 10:01] LABS: BUN/Creatinine Ratio 27; Blood Urea Nitrogen 8 mg/dL (7-17); Calcium 8.5 mg/dL (8.4-10.2); Hemolysis Index 12
--- NOTE | 2019-07-01 10:57 | Consultation ---
History of Present Illness Consult date: 07/01/19 Requesting physician: CAREY STOKES Reason for consult: other (Acute on Chronic ypoxemic Resp Failure) History of present illness: PULMONARY/CCM CONSULT NOTE (Full dictation # [id number]) Please see dictated notes for full details Past History Past Medical History: hypertension, other (Debility, Seizure Disorder) Past Surgical History: Other (Trach, Left Hip Surgery) Social history: . denies: smoking, alcohol abuse, prescription drug abuse Family history: hypertension Medications and Allergies Allergies Allergy/AdvReac Type Severity Reaction Status Date / Time amoxicillin [From Augmentin] Allergy Anaphylaxis Verified 06/28/19 07:17 cefdinir [From Omnicef] Allergy Anaphylaxis Verified 06/28/19 07:17 cephalexin [From Keflex] Allergy Anaphylaxis Verified 06/28/19 07:17 clarithromycin Allergy Anaphylaxis Verified 06/28/19 07:17 clavulanic acid Allergy Anaphylaxis Verified 06/28/19 07:17 [From Augmentin] doxycycline Allergy Anaphylaxis Verified 06/28/19 07:17 levofloxacin [From Levaquin] Allergy Anaphylaxis Verified 06/28/19 07:17 Sulfa (Sulfonamide Allergy Anaphylaxis Verified 06/28/19 07:17 Antibiotics) Home Medications Medication Instructions Recorded Confirmed Last Taken Type Acetaminophen [Acetaminophen TAB] 650 mg PO Q6H 06/28/19 06/28/19 Unknown History Escitalopram [Lexapro] 10 mg PO DAILY 06/28/19 06/28/19 Unknown History Ipratropium/Albuterol Sulfate 1 ampul IH Q6HR 06/28/19 06/28/19 Unknown History [DUONEB *Not for PRN Use*] Metoprolol [Lopressor] 25 mg PO BID 06/28/19 06/28/19 Unknown History Ondansetron [Zofran TAB] 4 mg PO Q6HR PRN 06/28/19 06/28/19 Unknown History Sodium Chloride 1 gm PO AC 06/28/19 06/28/19 Unknown History levETIRAcetam [Keppra TAB] 1,000 mg PO BID 06/28/19 06/28/19 Unknown History traMADol [Ultram] 50 mg PO BID 06/28/19 06/28/19 Unknown History Active Meds: Active Medications Acetaminophen (Tylenol) 650 mg PO Q6H [facility] Last Admin: 07/01/19 06:05 Dose: 650 mg Documented by: Albuterol (Proventil) 2.5 mg IH Q3HRT PRN PRN Reason: Shortness Of Breath Albuterol/Ipratropium (Duoneb *Not For Prn Use*) 1 ampul IH Q6HRT [facility] Last Admin: 07/01/19 07:55 Dose: 1 ampul Documented by: Escitalopram Oxalate (Lexapro) 10 mg PO DAILY [facility] Last Admin: 07/01/19 09:06 Dose: 10 mg Documented by: Heparin Sodium (Porcine) (Heparin) 5,000 unit SUB-Q Q12HR [facility] Last Admin: 06/30/19 22:10 Dose: 5,000 unit Documented by: Hydralazine HCl (Apresoline) 5 mg IV Q6H PRN PRN Reason: Hypertension Levetiracetam 1,000 mg/ (Dextrose) 110 mls @ 400 mls/hr IV Q12HR [facility] Last Admin: 06/30/19 22:09 Dose: 400 mls/hr Documented by: Metoprolol Tartrate (Lopressor) 25 mg PO BID [facility] Last Admin: 07/01/19 09:14 Dose: 25 mg Documented by: Morphine Sulfate (Morphine) 2 mg IV Q4H PRN PRN Reason: Pain, Moderate (4-6) Last Admin: 06/30/19 03:11 Dose: 2 mg Documented by: Ondansetron HCl (Zofran Odt) 4 mg PO Q6H PRN PRN Reason: Nausea And Vomiting Sodium Chloride (Sodium Chloride Flush Syringe 10 Ml) 10 ml IV BID [facility] Last Admin: 06/30/19 22:10 Dose: 10 ml Documented by: Sodium Chloride (Sodium Chloride Flush Syringe 10 Ml) 10 ml IV PRN PRN PRN Reason: LINE FLUSH Last Admin: 07/01/19 09:15 Dose: 10 ml Documented by: Sodium Chloride (Sodium Chloride) 1 gm PO AC [facility] Last Admin: 07/01/19 09:14 Dose: 1 gm Documented by: Sodium Polystyrene Sulfonate (Kionex) 15 gm PO Q6HR PRN PRN Reason: Hyperkalemia Tramadol HCl (Ultram) 50 mg PO BID [facility] Last Admin: 07/01/19 09:06 Dose: 50 mg Documented by: Physical Examination Vital signs: Vital Signs Temp Pulse Resp BP Pulse Ox 98.4 F 123 H 28 H 136/84 96 06/28/19 06:59 06/28/19 06:59 06/28/19 06:59 06/28/19 06:59 06/28/19 06:59 Results - Laboratory Findings CBC and BMP: 06/29/19 05:25 07/02/19 05:22 ABG POC ABG pH 7.390 (7.35-7.45) 06/28/19 07:22 POC ABG pCO2 45.1 (35-45) H 06/28/19 07:22 POC ABG pO2 75 (80-105) L 06/28/19 07:22 POC ABG HCO3 27.3 (22-26 mml/L) 06/28/19 07:22 POC ABG Total CO2 29 (23-27mmol/L) 06/28/19 07:22 POC ABG O2 Sat 95 06/28/19 07:22 PT/INR, D-dimer PT 13.2 Sec. (12.2-14.9) 06/28/19 07:12 INR 1.03 (0.87-1.13) 06/28/19 07:12 D-Dimer > 86592 ng/mlDDU (0-234) H 06/28/19 07:12 Abnormal lab findings: Abnormal Labs 06/28/19 06/28/19 06/28/19 07:12 07:12 07:12 RDW 16.7 H Lymph % (Auto) 10.3 L [place] % (Auto) Lymph # 1.0 L Seg Neutrophils % 82.0 H Seg Neutrophils # 8.0 H D-Dimer > 29409 H POC ABG pCO2 POC ABG pO2 Sodium 120 L Potassium Chloride 84.0 L Carbon Dioxide BUN Creatinine 0.4 L Glucose 136 H Alkaline Phosphatase Albumin Vancomycin Trough 06/28/19 06/29/19 06/29/19 07:22 04:29 05:25 RDW 17.4 H Lymph % (Auto) [place] % (Auto) 8.8 H Lymph # 1.0 L Seg Neutrophils % 75.8 H Seg Neutrophils # D-Dimer POC ABG pCO2 45.1 H POC ABG pO2 75 L Sodium 126 L Potassium Chloride 90.6 L Carbon Dioxide 19 L BUN Creatinine 0.3 L Glucose Alkaline Phosphatase 227 H Albumin 3.0 L Vancomycin Trough 06/30/19 06/30/19 07/01/19 09:36 14:13 09:19 RDW Lymph % (Auto) [place] % (Auto) Lymph # Seg Neutrophils % Seg Neutrophils # D-Dimer POC ABG pCO2 POC ABG pO2 Sodium 127 L 134 L D Potassium 5.6 H D Chloride 91.9 L 96.4 L Carbon Dioxide BUN 6 L Creatinine 0.3 L 0.3 L Glucose Alkaline Phosphatase Albumin Vancomycin Trough 20.5 H
[2019-07-01] MEDS: HEPARIN 5,000 UNIT/1 ML VIAL SUB-Q SCH ×2 (11:10→21:59)
[2019-07-01] MEDS: levETIRAcetam 1,000 MG in DEXTROSE 5% IN WATER 100 ML IV SCH ×2 (11:40→21:55)
--- NOTE | 2019-07-01 13:21 | Consultation ---
History of Present Illness - Reason for Consult Consult date: 07/01/19 pneumonia Requesting physician: KRISTA ZHOU - History of Present Illness 58 y/o female with history of COPD, chronic respiratory failure s/p trach, dementia hypertension, admitted on 06/28/2019 due to be found in respiratory distress at her longterm and low Sats in the 50s. There was also report of increasing respiratory secretions from trach. Patient is unable to provide a hi story. Patient with multiple drug allergies. There is no report of fever, chills, recent influenza. In the ED, temp 98.4, HR 123, R 28, O2 sat 96, BP 136/84. WBC 9.7. Na 120. Creat 0.4. UA negative. CTA chest and CXR no obvious consolidations. Review of Systems: unable to obtain Past History Past Medical History: hypertension, other (Debility, Seizure Disorder) Past Surgical History: Other (Trach, Left Hip Surgery) Social history: . denies: smoking, alcohol abuse, prescription drug abuse Family history: hypertension Medications and Allergies Allergies Allergy/AdvReac Type Severity Reaction Status Date / Time amoxicillin [From Augmentin] Allergy Anaphylaxis Verified 06/28/19 07:17 cefdinir [From Omnicef] Allergy Anaphylaxis Verified 06/28/19 07:17 cephalexin [From Keflex] Allergy Anaphylaxis Verified 06/28/19 07:17 clarithromycin Allergy Anaphylaxis Verified 06/28/19 07:17 clavulanic acid Allergy Anaphylaxis Verified 06/28/19 07:17 [From Augmentin] doxycycline Allergy Anaphylaxis Verified 06/28/19 07:17 levofloxacin [From Levaquin] Allergy Anaphylaxis Verified 06/28/19 07:17 Sulfa (Sulfonamide Allergy Anaphylaxis Verified 06/28/19 07:17 Antibiotics) Home Medications Medication Instructions Recorded Confirmed Last Taken Type Acetaminophen [Acetaminophen TAB] 650 mg PO Q6H 06/28/19 06/28/19 Unknown History Escitalopram [Lexapro] 10 mg PO DAILY 06/28/19 06/28/19 Unknown History Ipratropium/Albuterol Sulfate 1 ampul IH Q6HR 06/28/19 06/28/19 Unknown History [DUONEB *Not for PRN Use*] Metoprolol [Lopressor] 25 mg PO BID 06/28/19 06/28/19 Unknown History Ondansetron [Zofran TAB] 4 mg PO Q6HR PRN 06/28/19 06/28/19 Unknown History Sodium Chloride 1 gm PO AC 06/28/19 06/28/19 Unknown History levETIRAcetam [Keppra TAB] 1,000 mg PO BID 06/28/19 06/28/19 Unknown History traMADol [Ultram] 50 mg PO BID 06/28/19 06/28/19 Unknown History Active Meds: Active Medications Acetaminophen (Tylenol) 650 mg PO Q6H [facility] Last Admin: 07/01/19 12:00 Dose: Not Given Documented by: Albuterol (Proventil) 2.5 mg IH Q3HRT PRN PRN Reason: Shortness Of Breath Albuterol/Ipratropium (Duoneb *Not For Prn Use*) 1 ampul IH Q6HRT [facility] Last Admin: 07/01/19 07:55 Dose: 1 ampul Documented by: Escitalopram Oxalate (Lexapro) 10 mg PO DAILY [facility] Last Admin: 07/01/19 09:06 Dose: 10 mg Documented by: Heparin Sodium (Porcine) (Heparin) 5,000 unit SUB-Q Q12HR [facility] Last Admin: 07/01/19 11:10 Dose: 5,000 unit Documented by: Hydralazine HCl (Apresoline) 5 mg IV Q6H PRN PRN Reason: Hypertension Levetiracetam 1,000 mg/ (Dextrose) 110 mls @ 400 mls/hr IV Q12HR [facility] Last Admin: 07/01/19 11:40 Dose: 400 mls/hr Documented by: Metoprolol Tartrate (Lopressor) 25 mg PO BID [facility] Last Admin: 07/01/19 09:14 Dose: 25 mg Documented by: Morphine Sulfate (Morphine) 2 mg IV Q4H PRN PRN Reason: Pain, Moderate (4-6) Last Admin: 06/30/19 03:11 Dose: 2 mg Documented by: Ondansetron HCl (Zofran Odt) 4 mg PO Q6H PRN PRN Reason: Nausea And Vomiting Sodium Chloride (Sodium Chloride Flush Syringe 10 Ml) 10 ml IV BID [facility] Last Admin: 07/01/19 11:42 Dose: 10 ml Documented by: Sodium Chloride (Sodium Chloride Flush Syringe 10 Ml) 10 ml IV PRN PRN PRN Reason: LINE FLUSH Last Admin: 07/01/19 09:15 Dose: 10 ml Documented by: Sodium Chloride (Sodium Chloride) 1 gm PO AC [facility] Last Admin: 07/01/19 12:17 Dose: 1 gm Documented by: Sodium Polystyrene Sulfonate (Kionex) 15 gm PO Q6HR PRN PRN Reason: Hyperkalemia Tramadol HCl (Ultram) 50 mg PO BID [facility] Last Admin: 07/01/19 09:06 Dose: 50 mg Documented by: Physical Examination - Physical Exam Narrative exam: General appearance: Alert in NAD non verbal Eyes: anicteric sclerae, moist conjunctivae; no lid-lag; PERRLA HENT: Atraumatic; oropharynx limited Neck: Trach with adames secretions Lungs: isaac rhonchi CV: RRR no murmur Abdomen: Soft, non-tender Extremities: non edema Skin: No rash. Psych: no agitated Neuro: alert and oriented x 3. Moving all extermities - Constitutional Vitals: Vital Signs Temp Pulse Resp BP Pulse Ox 98.0 F 98 H 18 128/80 100 07/01/19 08:56 07/01/19 10:19 07/01/19 10:19 07/01/19 09:14 07/01/19 10:19 Temperature -Last 24 Hours Temperature 98.0 F Temperature 98.0 F Temperature 98.0 F Temperature 98.2 F Temperature 98.0 F Temperature 98 F Temperature 97.8 F Results - Labs CBC & Chem 7: 06/29/19 05:25 07/01/19 09:19 Labs: Abnormal lab results 06/30/19 07/01/19 Range/Units 14:13 09:19 Sodium 134 L D (137-145) mmol/L Chloride 96.4 L (98-107) mmol/L Creatinine 0.3 L (0.7-1.2) mg/dL Vancomycin Trough 20.5 H (5.0-20.0) ug/mL Assessment and Plan Cultures: Blood culture 06/30/2019 no growth Tracheal aspirated 06/30/2019 usual respiratory [place] Assessment: 58 y/o female with history of COPD, chronic respiratory failure s/p trach, dementia hypertension, admitted on 06/28/2019 due to be found in respiratory distress at her longterm and low Sats in the 50s: 1) COPD exacerbation, no evidence of pneumonia, no evidence of sepsis, likely viral, she is younger than 65 y/o and no cardiac history. Patient with extensive drug allergies. Received vancomycin and aztreonam for 24h. 2) Acute on chronic respiratory failure Recommendations: check procalcitonin monitor off antibiotics and reevaluate need for antibiotics if not improvement - consider doxycycline. Will follow. Yanni Hogan MD Infectious Diseases Online Journalist [facility] M [phone] O [phone]
[2019-07-02] MEDS: ACETAMINOPHEN 325 MG TAB PO SCH ×4 (01:22→17:37)
[2019-07-02] MEDS: IPRATROPIUM/ALBUTEROL SULFATE 3 ML AMPUL.NEB IH SCH ×4 (05:07→20:18)
[2019-07-02 06:53] LABS: BUN/Creatinine Ratio 20; Blood Urea Nitrogen 6 mg/dL (7-17); Calcium 8.6 mg/dL (8.4-10.2); Hemolysis Index 2
[2019-07-02] MEDS: SODIUM CHLORIDE 1 GM TAB PO SCH ×3 (08:00→16:05)
--- NOTE | 2019-07-02 08:51 | Progress Note ---
Assessment and Plan Assessment and plan: --Acute and chronic respiratory failure: likely from aspiration Pneumonia h/o Tracheostomy,Trach care cont pulse oximetry, nebulizer therapy, NIPPV as clinically indicated, pulmonary toilet. Trach Care. Pulmonary following --Pneumonia, suspected :Pneumonia ruled out DC antibiotics,No evidence of Pneumonia on CXR /CT chest No fever,no leukocytosis,Monitor --Hyponatremia: mild improvement cont ,IV fluids,monitor electrolytes --HTN (hypertension);Well controlled today Monitor BP q shift, supportive care. -- H/O Seizure: Seizure precautions,keppra,supportive care --Elevated d-dimer; CT negative for PE, LE Doppler negative for DVT -- Gen .Debility supportive care, PT consulted --Moderate malnutrition/hypoalbuminemia: nutrition supplements, nutrition consult Advance diet to mechanical soft as tolerated --DVT prophylaxis SCD to BLE while in bed, prophylactic heparin. Plan of care reviwed with the patient and her nurse . Disposition: Return to SNF tomorrow if remains stable . History Interval history: Patient seen and examined medical records reviewed Feels slightly better Chief signs are reviewed Status post tracheostomy on T piece Hospitalist Physical - Constitutional Vitals: Temp Pulse Resp BP Pulse Ox 98.5 F 85 18 126/74 100 07/02/19 07:49 07/02/19 07:49 07/02/19 07:49 07/02/19 07:49 07/02/19 07:49 General appearance: Present: no acute distress, cachectic, disheveled, other (s/p tracheostomy ) - EENT Eyes: Present: PERRL, EOM intact - Neck Neck: Present: supple, normal ROM - Respiratory Respiratory effort: normal Respiratory: bilateral: diminished, rhonchi, negative: rales, wheezing - Cardiovascular Rhythm: regular Heart Sounds: Present: S1 & S2 - Extremities Extremities: no ischemia, No edema - Abdominal General gastrointestinal: soft, non-tender, non-distended, normal bowel sounds - Integumentary Integumentary: Present: clear, warm - Psychiatric Psychiatric: appropriate mood/affect, cooperative - Neurologic Neurologic: CNII-XII intact, moves all extremities Results - Labs CBC & Chem 7: 06/29/19 05:25 07/02/19 05:22 Labs: Laboratory Last Values WBC 7.6 K/mm3 (4.5-11.0) 06/29/19 05:25 RBC 3.83 M/mm3 (3.65-5.03) 06/29/19 05:25 Hgb 11.2 gm/dl (10.1-14.3) 06/29/19 05:25 Hct 34.0 % (30.3-42.9) 06/29/19 05:25 MCV 89 fl (79-97) 06/29/19 05:25 MCH 29 pg (28-32) 06/29/19 05:25 MCHC 33 % (30-34) 06/29/19 05:25 RDW 17.4 % (13.2-15.2) H 06/29/19 05:25 Plt Count 281 K/mm3 (140-440) 06/29/19 05:25 Lymph % (Auto) 13.5 % (13.4-35.0) 06/29/19 05:25 [place] % (Auto) 8.8 % (0.0-7.3) H 06/29/19 05:25 Eos % (Auto) 0.9 % (0.0-4.3) 06/29/19 05:25 Baso % (Auto) 1.0 % (0.0-1.8) 06/29/19 05:25 Lymph # 1.0 K/mm3 (1.2-5.4) L 06/29/19 05:25 [place] # 0.7 K/mm3 (0.0-0.8) 06/29/19 05:25 Eos # 0.1 K/mm3 (0.0-0.4) 06/29/19 05:25 Baso # 0.1 K/mm3 (0.0-0.1) 06/29/19 05:25 Add Manual Diff TNR 06/29/19 04:29 Seg Neutrophils % 75.8 % (40.0-70.0) H 06/29/19 05:25 Seg Neutrophils # 5.8 K/mm3 (1.8-7.7) 06/29/19 05:25 PT 13.2 Sec. (12.2-14.9) 06/28/19 07:12 INR 1.03 (0.87-1.13) 06/28/19 07:12 D-Dimer > 04010 ng/mlDDU (0-234) H 06/28/19 07:12 POC ABG pH 7.390 (7.35-7.45) 06/28/19 07:22 POC ABG pCO2 45.1 (35-45) H 06/28/19 07:22 POC ABG pO2 75 (80-105) L 06/28/19 07:22 POC ABG HCO3 27.3 (22-26 mml/L) 06/28/19 07:22 POC ABG Total CO2 29 (23-27mmol/L) 06/28/19 07:22 POC ABG O2 Sat 95 06/28/19 07:22 POC ABG Base Excess 2 ((-2) - (+3)mmol/L) 06/28/19 07:22 FiO2 50 % 06/28/19 07:22 Sodium 131 mmol/L (137-145) L 07/02/19 05:22 Potassium 4.1 mmol/L (3.6-5.0) 07/02/19 05:22 Chloride 92.6 mmol/L (98-107) L 07/02/19 05:22 Carbon Dioxide 26 mmol/L (22-30) 07/02/19 05:22 Anion Gap 17 mmol/L 07/02/19 05:22 BUN 6 mg/dL (7-17) L 07/02/19 05:22 Creatinine 0.3 mg/dL (0.7-1.2) L 07/02/19 05:22 Estimated GFR > 60 ml/min 07/02/19 05:22 BUN/Creatinine Ratio 20 % 07/02/19 05:22 Glucose 94 mg/dL (65-100) 07/02/19 05:22 POC Glucose 94 (70-105) 06/30/19 12:30 Calcium 8.6 mg/dL (8.4-10.2) 07/02/19 05:22 Magnesium 2.10 mg/dL (1.7-2.3) 07/01/19 09:19 Total Bilirubin 0.50 mg/dL (0.1-1.2) 06/29/19 04:29 AST 24 units/L (5-40) 06/29/19 04:29 ALT 15 units/L (7-56) 06/29/19 04:29 Alkaline Phosphatase 227 units/L (35-129) H 06/29/19 04:29 Troponin T < 0.010 ng/mL (0.00-0.029) 06/28/19 07:12 Total Protein 6.7 g/dL (6.3-8.2) 06/29/19 04:29 Albumin 3.0 g/dL (3.9-5) L 06/29/19 04:29 Albumin/Globulin Ratio 0.8 % 06/29/19 04:29 Urine Color Yellow (Yellow) 06/28/19 06:38 Urine Turbidity Clear (Clear) 06/28/19 06:38 Urine pH 6.0 (5.0-7.0) 06/28/19 06:38 Ur Specific [place] 1.020 (1.003-1.030) 06/28/19 06:38 Urine Protein >500 mg/dL (Negative) 06/28/19 06:38 Urine Glucose (UA) Neg mg/dL (Negative) 06/28/19 06:38 Urine Ketones Neg mg/dL (Negative) 06/28/19 06:38 Urine Blood Sm (Negative) 06/28/19 06:38 Urine Nitrite Neg (Negative) 06/28/19 06:38 Urine Bilirubin Neg (Negative) 06/28/19 06:38 Urine Urobilinogen < 2.0 mg/dL (<2.0) 06/28/19 06:38 Ur Leukocyte Esterase Neg (Negative) 06/28/19 06:38 Urine WBC (Auto) 5.0 /HPF (0.0-6.0) 06/28/19 06:38 Urine RBC (Auto) 6.0 /HPF (0.0-6.0) 06/28/19 06:38 U Epithel Cells (Auto) < 1.0 /HPF (0-13.0) 06/28/19 06:38 Urine Bacteria (Auto) 1+ /HPF (Negative) 06/28/19 06:38 Hyaline Casts 2 /LPF 06/28/19 06:38 Urine Mucus Few /HPF 06/28/19 06:38 Vancomycin Trough 20.5 ug/mL (5.0-20.0) H 06/30/19 14:13 Active Medications - Current Medications Current Medications: Generic Name Dose Route Start Last Admin Trade Name Freq PRN Reason Stop Dose Admin Acetaminophen 650 mg 06/28/19 18:00 07/02/19 06:46 Tylenol PO Not Given Q6H ROSE Albuterol 2.5 mg 06/28/19 12:20 Proventil IH Q3HRT PRN Shortness Of Breath Albuterol/Ipratropium 1 ampul 06/28/19 20:00 07/02/19 08:02 Duoneb *Not For Prn Use* IH 1 ampul Q6HRT ROSE Administration Escitalopram Oxalate 10 mg 06/29/19 10:00 07/01/19 09:06 Lexapro PO 10 mg DAILY ROSE Administration Heparin Sodium (Porcine) 5,000 unit 06/28/19 22:00 07/01/19 21:59 Heparin SUB-Q 5,000 unit Q12HR ROSE Administration Hydralazine HCl 5 mg 06/28/19 21:48 Apresoline IV Q6H PRN Hypertension Levetiracetam 1,000 mg/ 110 mls @ 400 mls/hr 06/28/19 22:00 07/01/19 21:55 Dextrose IV 400 mls/hr Q12HR ROSE Administration Metoprolol Tartrate 25 mg 06/28/19 22:00 07/01/19 21:59 Lopressor PO 25 mg BID ROSE Administration Morphine Sulfate 2 mg 06/28/19 17:34 06/30/19 03:11 Morphine IV 2 mg Q4H PRN Administration Pain, Moderate (4-6) Ondansetron HCl 4 mg 06/28/19 18:05 Zofran Odt PO Q6H PRN Nausea And Vomiting Sodium Chloride 10 ml 06/28/19 22:00 07/01/19 21:55 Sodium Chloride Flush Syringe 10 Ml IV 10 ml BID ROSE Administration Sodium Chloride 10 ml 06/28/19 12:20 07/01/19 09:15 Sodium Chloride Flush Syringe 10 Ml IV 10 ml PRN PRN Administration LINE FLUSH Sodium Chloride 1 gm 06/29/19 07:30 07/01/19 16:45 Sodium Chloride PO 1 gm AC ROSE Administration Sodium Polystyrene Sulfonate 15 gm 06/30/19 17:14 Kionex PO Q6HR PRN Hyperkalemia Tramadol HCl 50 mg 06/28/19 22:00 07/01/19 21:53 Ultram PO 50 mg BID ROSE Administration
[2019-07-02] MEDS: HEPARIN 5,000 UNIT/1 ML VIAL SUB-Q SCH ×2 (10:35→23:19)
[2019-07-02] MEDS: levETIRAcetam 1,000 MG in DEXTROSE 5% IN WATER 100 ML IV SCH (10:40)
[2019-07-02] MEDS: ESCITALOPRAM 10 MG TAB PO SCH (11:00)
[2019-07-02] MEDS: METOPROLOL TARTRATE 25 MG TAB PO SCH ×2 (11:00→23:10)
[2019-07-02] MEDS: traMADol 50 MG TAB PO SCH ×2 (11:19→23:19)
--- NOTE | 2019-07-02 11:21 | Progress Note ---
Assessment and Plan Patient awake and weak. Eyes sunken, Resting on T tube, FIO2 28% and O2 saturation running 100%. No acute respiratory distress. Patient afebrile. No Leukocytosis.Patients CAT scan of chest reported no PE, No Pneumonia, No CHF. Patient can be discharged from pulmonary point of view. - Patient Problems (1) Acute and chronic respiratory failure Current Visit: Yes Status: Acute Qualifiers: Respiratory failure complication: hypoxia Qualified Code(s): J96.21 - Acute and chronic respiratory failure with hypoxia Plan to address problem: Patient S/P Tracheostomy. On T tube, FIO2 28%. Albuterol/atrovent aerosol treatments q 6 hours. Continue S/C Heparin. Recommend GI prophylaxis. (2) Tracheostomy dependent Current Visit: Yes Status: Acute Plan to address problem: Respiratory suctioning and trach care. Subjective Date of service: 07/02/19 Interval history: Patient awake and weak. Eyes sunken, Resting on T tube, FIO2 28% and O2 saturation running 100%. No acute respiratory distress. Patient afebrile. No Leukocytosis. Patients CAT scan of chest reported no PE, No Pneumonia, No CHF. Patient can be discharged from pulmonary point of view. Objective Vital Signs - 12hr 07/02/19 07/02/19 07/02/19 00:00 00:08 02:00 Temperature 98 F Pulse Rate 67 68 Pulse Rate [ 79 Anterior Bilateral Throughout] Respiratory 18 Rate Respiratory 18 Rate [Anterior Bilateral Throughout] Blood Pressure Blood Pressure 121/68 [Left] O2 Sat by Pulse 94 Oximetry O2 Sat by Pulse 100 Oximetry [ Assessment] 07/02/19 07/02/19 07/02/19 04:00 05:25 07:49 Temperature 98.0 F 98.5 F Pulse Rate 80 78 85 Pulse Rate [ Anterior Bilateral Throughout] Respiratory 18 18 Rate Respiratory Rate [Anterior Bilateral Throughout] Blood Pressure 139/81 126/74 Blood Pressure [Left] O2 Sat by Pulse 100 100 Oximetry O2 Sat by Pulse Oximetry [ Assessment] 07/02/19 08:02 Temperature Pulse Rate Pulse Rate [ 87 Anterior Bilateral Throughout] Respiratory Rate Respiratory 20 Rate [Anterior Bilateral Throughout] Blood Pressure Blood Pressure [Left] O2 Sat by Pulse 100 Oximetry O2 Sat by Pulse 100 Oximetry [ Assessment] Constitutional: no acute distress, alert, other (Weak, Eyes sunken.) Eyes: non-icteric ENT: oropharynx moist Neck: supple, no lymphadenopathy Ascultation: Bilateral: diminished breath sounds, other (Prolonged expiratory phase.) Cardiovascular: regular rate and rhythm Gastrointestinal: normoactive bowel sounds, soft, non-tender Integumentary: normal Extremities: no cyanosis, no edema Neurologic: non-focal exam, pupils equal and round, CN II-XII normal Psychiatric: depressed CBC and BMP: 06/29/19 05:25 07/02/19 05:22 ABG, PT/INR, D-dimer: ABG POC ABG pH 7.390 (7.35-7.45) 06/28/19 07:22 POC ABG pCO2 45.1 (35-45) H 06/28/19 07:22 POC ABG pO2 75 (80-105) L 06/28/19 07:22 POC ABG HCO3 27.3 (22-26 mml/L) 06/28/19 07:22 POC ABG Total CO2 29 (23-27mmol/L) 06/28/19 07:22 POC ABG O2 Sat 95 06/28/19 07:22 PT/INR, D-dimer PT 13.2 Sec. (12.2-14.9) 06/28/19 07:12 INR 1.03 (0.87-1.13) 06/28/19 07:12 D-Dimer > 88996 ng/mlDDU (0-234) H 06/28/19 07:12 Abnormal lab findings: Abnormal Labs 06/28/19 06/28/19 06/28/19 07:12 07:12 07:12 RDW 16.7 H Lymph % (Auto) 10.3 L [place] % (Auto) Lymph # 1.0 L Seg Neutrophils % 82.0 H Seg Neutrophils # 8.0 H D-Dimer > 41983 H POC ABG pCO2 POC ABG pO2 Sodium 120 L Potassium Chloride 84.0 L Carbon Dioxide BUN Creatinine 0.4 L Glucose 136 H Alkaline Phosphatase Albumin Vancomycin Trough 06/28/19 06/29/19 06/29/19 07:22 04:29 05:25 RDW 17.4 H Lymph % (Auto) [place] % (Auto) 8.8 H Lymph # 1.0 L Seg Neutrophils % 75.8 H Seg Neutrophils # D-Dimer POC ABG pCO2 45.1 H POC ABG pO2 75 L Sodium 126 L Potassium Chloride 90.6 L Carbon Dioxide 19 L BUN Creatinine 0.3 L Glucose Alkaline Phosphatase 227 H Albumin 3.0 L Vancomycin Trough 06/30/19 06/30/19 07/01/19 09:36 14:13 09:19 RDW Lymph % (Auto) [place] % (Auto) Lymph # Seg Neutrophils % Seg Neutrophils # D-Dimer POC ABG pCO2 POC ABG pO2 Sodium 127 L 134 L D Potassium 5.6 H D Chloride 91.9 L 96.4 L Carbon Dioxide BUN 6 L Creatinine 0.3 L 0.3 L Glucose Alkaline Phosphatase Albumin Vancomycin Trough 20.5 H 07/02/19 05:22 RDW Lymph % (Auto) [place] % (Auto) Lymph # Seg Neutrophils % Seg Neutrophils # D-Dimer POC ABG pCO2 POC ABG pO2 Sodium 131 L Potassium Chloride 92.6 L Carbon Dioxide BUN 6 L Creatinine 0.3 L Glucose Alkaline Phosphatase Albumin Vancomycin Trough Chest x-ray: report reviewed (Left lower lobe opacity, consistent with atelectasis. Sub acute left rib fractures.), image reviewed CT scan - chest: report reviewed (No PE,No pneumonia, No CHF.), image reviewed
[2019-07-02 12:38] LABS: Chloride, Urine 34.4 mmolL (110-250)
[2019-07-02] MEDS: FAMOTIDINE 20 MG TAB PO SCH (14:45)
[2019-07-02] MEDS ORDERED: levETIRAcetam 1,000 MG in DEXTROSE 5% IN WATER 100 ML IV SCH (23:00)
[2019-07-02] MEDS: levETIRAcetam 500 MG/5 ML ORAL LIQD PO SCH (23:19)
[2019-07-02] MEDS ORDERED: levETIRAcetam 1000 MG/NS 0.75% 1,000 MG/100 ML BAG IV ONE (23:30)
--- NOTE | 2019-07-02 23:31 | Consultation ---
PULMONARY CONSULTATION CONSULTING PHYSICIAN: Dr. Humphrey. REASON FOR CONSULTATION: [id number] hypoxemic respiratory failure. CHIEF COMPLAINT AND HISTORY OF PRESENT ILLNESS: As follows: The patient is a 58-year-old female resident of a snf facility [facility]. She has a chronic tracheostomy in place. Also, had a past history of seizure disorder, came into the Emergency Room. According to the ER notes, she was found in respiratory distress with discharge coming from the trach site. It is unclear if it was a bloody discharge. She was found to be hypoxemic, O2 sats in the 50s. When emergency medical services arrived at the facility, she was found in respiratory distress. She was given nebulizer treatments, did not improve well. In the ER, she was found to be lethargic, using accessory muscles of respiration. She was admitted to the [facility] with tentative diagnosis of healthcare-associated pneumonia. We are asked to assist with management. When I stopped by to see her, she was resting in bed, feeling a little bit better, very slow to respond to questions, has had some neurosurgical intervention. She has a concavity to the right side of her scalp. She has had a partial lobectomy. She denied any pain at the time I saw her. She is not a current smoker. Really is as much of the history of presentation as I have. I do not have any history of vomiting or overt aspiration. PAST MEDICAL HISTORY: Again, significant for chronic respiratory failure, status post tracheostomy, seizure disorder, debility. PAST SURGICAL HISTORY: She has had a tracheostomy. She has had left hip surgery. MEDICATIONS: She was on at the time I stopped by to see her were reviewed. Pertinent medications included the following: Tylenol 650 mg p.o. q. 6 hours p.r.n. mild pain or fevers, DuoNeb nebulizer treatments nebulized q. 6 hours, Lexapro 10 mg p.o. daily, heparin 5000 units subQ q. 12 hours, hydralazine 5 mg IV q. 6 hours p.r.n. elevated blood pressure, Keppra 1 gram IV q. 12 hours, metoprolol 25 mg p.o. b.i.d., morphine sulfate 2 mg IV q. 4 hours p.r.n. moderate pain, Zofran 4 mg p.o. q. 6 hours p.r.n. nausea and vomiting, tramadol 50 mg p.o. b.i.d. scheduled. ALLERGIES: To AMOXICILLIN, CEPHALEXIN, CLARITHROMYCIN, AUGMENTIN. Nature of this allergy is unknown. DIET: Thin lady, cachectic lady, acute weight loss or gain history is unknown. FAMILY AND SOCIAL HISTORY: Lives in the healthcare-associated facility prior to this admission. No current alcohol, tobacco or illicit drug use or abuse. Remote history is unknown. There is a family history of hypertension according to the ER records. REVIEW OF SYSTEMS: Unobtainable secondary to patient's medical and mental condition. Since she has been here, no gross hematochezia or melena, no gross hematuria, no bloody tracheal secretions, no witnessed seizures. Review of systems otherwise as in the body of history above. PHYSICAL EXAMINATION: VITAL SIGNS: At presentation in the Emergency Room, she was afebrile, temperature 98.4 degrees Fahrenheit, pulse was 123, respiratory rate was 28, blood pressure was 136/84, O2 sats were 96%, inspired oxygen concentration at that time was not recorded. When I stopped by to see her, O2 sats were 99% on 0.28 FiO2. GENERAL: She is a well-built, middle-aged female. She has a noticeable concavity to the right skull region, resting in bed with mildly increased respiratory effort at rest. HEAD, EYES, EARS, NOSE, NOSE AND THROAT: Anicteric, no conjunctival erythema. Oropharynx was dry. She has a #4 Shiley tracheostomy tube in the midline of her neck. No gross jugular venous distention, no thyromegaly. Grossly, there were no palpable lymph nodes in the supraclavicular or submandibular lymph node chains. LUNGS: Auscultation of both lung wu revealed diminished bilateral breath sounds, faint basilar inspiratory rhonchi, no active wheezing. HEART: Heart sounds 1 and 2 are heard. They were regular rate and rhythm at time of my evaluation without overt rubs or murmurs. ABDOMEN: Soft, flat. Bowel sounds are positive, nontender, no palpable hepatosplenomegaly. EXTREMITIES: Without overt digital clubbing, no cyanosis, no pedal edema. Pedal pulses were palpable 2+ bilaterally. NEUROLOGIC: The right pupil was nonresponsive about 4 mm, left pupil was about 3 mm, sluggishly reactive to light. Extraocular muscle movements appeared intact in the left eye. She has spontaneous movements to upper extremities as well as the right lower extremity. Left lower extremity did not have spontaneous movements. She had mild contractures to the left lower extremity. No fasciculations. She had some mild spasticity in the left lower extremity. SKIN: Poor turgor, but without overt cellulitis or rash. PSYCHIATRIC: Her mood and affect essentially was flat. LABORATORY DATA: From my review, admission white cell count 9700, hemoglobin 12.4, hematocrit 37.0, platelet counts 280. D-dimer was greater than 10,000. No band forms reported on the CBC. ABG showed a pH of 7.39, pCO2 of 45, pO2 of 75 that was on 50% FiO2 at presentation. Serum sodium was 120, potassium was 4.1, chloride was 84, bicarbonate 23, BUN 9, creatinine 0.4, glucose was 136. Troponin within normal limits. Urinalysis was negative for nitrites and leukocyte esterase. Blood cultures, no growth to date. Tracheal aspirate grew normal respiratory wayne. I have reviewed her chest x-ray as well as the CT angiogram. CT essentially shows some mild bibasilar subsegmental atelectasis, no filling defects consistent with pulmonary emboli. There is some elevation of the left hemidiaphragm with dilated loops of bowel. The CT scan shows more significant atelectasis of the left lower lobe and perhaps some consolidation in that region. ASSESSMENT: 1. Acute on chronic hypoxemic respiratory failure. 2. Possible bibasilar aspiration pneumonia. 3. Hyponatremia. 4. Seizure disorder. 5. Adult failure to thrive. 6. Hyperglycemia. 7. Debility. PLAN: We will follow her clinically off antibiotics at this time. I do feel that the changes in the base are mostly atelectatic changes. She will benefit from a swallow evaluation as she is taking meals orally and there may be some element of aspiration also at least. I will get a CRP level to better evaluate the presence of true clinical infection. Oxygen will be weaned to keep sats greater than or equal to about 90%. Aspiration precautions will be maintained. She is appropriately on DVT prophylaxis. I will put her on GI prophylaxis. Flu and pneumonia vaccination will be addressed per protocol. We will continue her chronic disease medications per the attending. Thank you very much for the consult. We will follow along and make further recommendations as the picture progresses/becomes clearer. JOB# [id number] RICARDO/NIKI
[2019-07-03] MEDS: ACETAMINOPHEN 325 MG TAB PO SCH ×5 (01:47→17:12)
[2019-07-03] MEDS: IPRATROPIUM/ALBUTEROL SULFATE 3 ML AMPUL.NEB IH SCH ×4 (03:02→19:41)
--- NOTE | 2019-07-03 09:18 | Progress Note ---
Assessment and Plan Assessment and plan: --Pneumonia, suspected :Pneumonia ruled out DC antibiotics,No evidence of Pneumonia on CXR /CT chest No fever,no leukocytosis,Monitor --Hyponatremia: mild improvement cont ,IV fluids,monitor electrolytes --Acute and chronic respiratory failure: likely from aspiration Pneumonia --h/o Tracheostomy,Trach care cont pulse oximetry, nebulizer therapy, NIPPV as needed pulmonary toilet. Trach Care. Pulmonary following --HTN (hypertension);Well controlled today Monitor BP q shift, supportive care. -- H/O Seizure: Seizure precautions,keppra,supportive care --Elevated d-dimer; CT negative for PE, LE Doppler negative for DVT -- Gen .Debility supportive care, PT consulted --Moderate malnutrition/hypoalbuminemia: nutrition supplements, nutrition consult Advance diet to mechanical soft as tolerated --DVT prophylaxis SCD to BLE while in bed, prophylactic heparin. Plan of care reviwed with the patient and her nurse . Disposition: Return to SNF tomorrow if remains stable . Tests Done so far; Chest x-ray;: left lower lobe opacity, CTA negative for pneumonia[pneumonia ruled out] CTA chest: negative,for PE, CHF and pneumonia LE Venous Doppler : Negative for bariatric Modified barium swallow; History Interval history: Patient seen and examined her in her room this morning medical records reviewed Patient feels better no new complaints Requested to advance diet, advance to mechanical soft diet Vital signs reviewed Patient is alert and awake not in acute distress Status post tracheostomy Hospitalist Physical - Constitutional Vitals: Temp Pulse Resp BP Pulse Ox 97.4 F L 74 18 123/75 96 07/03/19 08:20 07/03/19 08:20 07/03/19 08:20 07/03/19 08:20 07/03/19 08:20 General appearance: Present: no acute distress, cachectic, disheveled, other (s/p tracheostomy ) - EENT Eyes: Present: PERRL, EOM intact - Neck Neck: Present: supple, normal ROM - Respiratory Respiratory effort: normal Respiratory: bilateral: diminished, negative: rales, rhonchi, wheezing - Cardiovascular Rhythm: regular Heart Sounds: Present: S1 & S2 - Extremities Extremities: no ischemia, No edema - Abdominal General gastrointestinal: soft, non-tender, non-distended, normal bowel sounds - Integumentary Integumentary: Present: clear, warm - Psychiatric Psychiatric: appropriate mood/affect, cooperative - Neurologic Neurologic: CNII-XII intact, moves all extremities Results - Labs CBC & Chem 7: 06/29/19 05:25 07/02/19 05:22 Labs: Laboratory Last Values WBC 7.6 K/mm3 (4.5-11.0) 06/29/19 05:25 RBC 3.83 M/mm3 (3.65-5.03) 06/29/19 05:25 Hgb 11.2 gm/dl (10.1-14.3) 06/29/19 05:25 Hct 34.0 % (30.3-42.9) 06/29/19 05:25 MCV 89 fl (79-97) 06/29/19 05:25 MCH 29 pg (28-32) 06/29/19 05:25 MCHC 33 % (30-34) 06/29/19 05:25 RDW 17.4 % (13.2-15.2) H 06/29/19 05:25 Plt Count 281 K/mm3 (140-440) 06/29/19 05:25 Lymph % (Auto) 13.5 % (13.4-35.0) 06/29/19 05:25 [place] % (Auto) 8.8 % (0.0-7.3) H 06/29/19 05:25 Eos % (Auto) 0.9 % (0.0-4.3) 06/29/19 05:25 Baso % (Auto) 1.0 % (0.0-1.8) 06/29/19 05:25 Lymph # 1.0 K/mm3 (1.2-5.4) L 06/29/19 05:25 [place] # 0.7 K/mm3 (0.0-0.8) 06/29/19 05:25 Eos # 0.1 K/mm3 (0.0-0.4) 06/29/19 05:25 Baso # 0.1 K/mm3 (0.0-0.1) 06/29/19 05:25 Add Manual Diff TNR 06/29/19 04:29 Seg Neutrophils % 75.8 % (40.0-70.0) H 06/29/19 05:25 Seg Neutrophils # 5.8 K/mm3 (1.8-7.7) 06/29/19 05:25 PT 13.2 Sec. (12.2-14.9) 06/28/19 07:12 INR 1.03 (0.87-1.13) 06/28/19 07:12 D-Dimer > 49780 ng/mlDDU (0-234) H 06/28/19 07:12 POC ABG pH 7.390 (7.35-7.45) 06/28/19 07:22 POC ABG pCO2 45.1 (35-45) H 06/28/19 07:22 POC ABG pO2 75 (80-105) L 06/28/19 07:22 POC ABG HCO3 27.3 (22-26 mml/L) 06/28/19 07:22 POC ABG Total CO2 29 (23-27mmol/L) 06/28/19 07:22 POC ABG O2 Sat 95 06/28/19 07:22 POC ABG Base Excess 2 ((-2) - (+3)mmol/L) 06/28/19 07:22 FiO2 50 % 06/28/19 07:22 Sodium 131 mmol/L (137-145) L 07/02/19 05:22 Potassium 4.1 mmol/L (3.6-5.0) 07/02/19 05:22 Chloride 92.6 mmol/L (98-107) L 07/02/19 05:22 Carbon Dioxide 26 mmol/L (22-30) 07/02/19 05:22 Anion Gap 17 mmol/L 07/02/19 05:22 BUN 6 mg/dL (7-17) L 07/02/19 05:22 Creatinine 0.3 mg/dL (0.7-1.2) L 07/02/19 05:22 Estimated GFR > 60 ml/min 07/02/19 05:22 BUN/Creatinine Ratio 20 % 07/02/19 05:22 Glucose 94 mg/dL (65-100) 07/02/19 05:22 POC Glucose 94 (70-105) 06/30/19 12:30 Calcium 8.6 mg/dL (8.4-10.2) 07/02/19 05:22 Magnesium 2.10 mg/dL (1.7-2.3) 07/01/19 09:19 Total Bilirubin 0.50 mg/dL (0.1-1.2) 06/29/19 04:29 AST 24 units/L (5-40) 06/29/19 04:29 ALT 15 units/L (7-56) 06/29/19 04:29 Alkaline Phosphatase 227 units/L (35-129) H 06/29/19 04:29 Troponin T < 0.010 ng/mL (0.00-0.029) 06/28/19 07:12 Total Protein 6.7 g/dL (6.3-8.2) 06/29/19 04:29 Albumin 3.0 g/dL (3.9-5) L 06/29/19 04:29 Albumin/Globulin Ratio 0.8 % 06/29/19 04:29 Procalcitonin 0.11 ng/mL (<0.15) 07/01/19 14:21 Urine Color Yellow (Yellow) 06/28/19 06:38 Urine Turbidity Clear (Clear) 06/28/19 06:38 Urine pH 6.0 (5.0-7.0) 06/28/19 06:38 Ur Specific [place] 1.020 (1.003-1.030) 06/28/19 06:38 Urine Protein >500 mg/dL (Negative) 06/28/19 06:38 Urine Glucose (UA) Neg mg/dL (Negative) 06/28/19 06:38 Urine Ketones Neg mg/dL (Negative) 06/28/19 06:38 Urine Blood Sm (Negative) 06/28/19 06:38 Urine Nitrite Neg (Negative) 06/28/19 06:38 Urine Bilirubin Neg (Negative) 06/28/19 06:38 Urine Urobilinogen < 2.0 mg/dL (<2.0) 06/28/19 06:38 Ur Leukocyte Esterase Neg (Negative) 06/28/19 06:38 Urine WBC (Auto) 5.0 /HPF (0.0-6.0) 06/28/19 06:38 Urine RBC (Auto) 6.0 /HPF (0.0-6.0) 06/28/19 06:38 U Epithel Cells (Auto) < 1.0 /HPF (0-13.0) 06/28/19 06:38 Urine Bacteria (Auto) 1+ /HPF (Negative) 06/28/19 06:38 Hyaline Casts 2 /LPF 06/28/19 06:38 Urine Mucus Few /HPF 06/28/19 06:38 Urine Sodium 29 mmol/L 06/28/19 Unknown Urine Chloride 34.4 mmolL (110-250) L 06/28/19 Unknown Vancomycin Trough 20.5 ug/mL (5.0-20.0) H 06/30/19 14:13 Active Medications - Current Medications Current Medications: Generic Name Dose Route Start Last Admin Trade Name Freq PRN Reason Stop Dose Admin Acetaminophen 650 mg 06/28/19 18:00 07/03/19 06:25 Tylenol PO 650 mg Q6H ROSE Administration Albuterol 2.5 mg 06/28/19 12:20 Proventil IH Q3HRT PRN Shortness Of Breath Albuterol/Ipratropium 1 ampul 06/28/19 20:00 07/03/19 07:55 Duoneb *Not For Prn Use* IH 1 ampul Q6HRT ROSE Administration Escitalopram Oxalate 10 mg 06/29/19 10:00 07/02/19 11:00 Lexapro PO 10 mg DAILY ROSE Administration Famotidine 20 mg 07/02/19 14:00 07/02/19 14:45 Pepcid PO 20 mg QDAY ROSE Administration Heparin Sodium (Porcine) 5,000 unit 06/28/19 22:00 07/02/19 23:19 Heparin SUB-Q Not Given Q12HR [facility] Hydralazine HCl 5 mg 06/28/19 21:48 Apresoline IV Q6H PRN Hypertension Levetiracetam 1,000 mg 07/02/19 22:00 07/02/19 23:19 Keppra PO Not Given BID ROSE Metoprolol Tartrate 25 mg 06/28/19 22:00 07/02/19 23:10 Lopressor PO 25 mg BID ROSE Administration Morphine Sulfate 2 mg 06/28/19 17:34 06/30/19 03:11 Morphine IV 2 mg Q4H PRN Administration Pain, Moderate (4-6) Ondansetron HCl 4 mg 06/28/19 18:05 Zofran Odt PO Q6H PRN Nausea And Vomiting Sodium Chloride 10 ml 06/28/19 22:00 07/02/19 23:18 Sodium Chloride Flush Syringe 10 Ml IV 10 ml BID ROSE Administration Sodium Chloride 10 ml 06/28/19 12:20 07/01/19 09:15 Sodium Chloride Flush Syringe 10 Ml IV 10 ml PRN PRN Administration LINE FLUSH Sodium Chloride 1 gm 06/29/19 07:30 07/02/19 16:05 Sodium Chloride PO 1 gm AC ROSE Administration Sodium Polystyrene Sulfonate 15 gm 06/30/19 17:14 Kionex PO Q6HR PRN Hyperkalemia Tramadol HCl 50 mg 06/28/19 22:00 07/02/19 23:19 Ultram PO 50 mg BID ROSE Administration
[2019-07-03] MEDS: SODIUM CHLORIDE 1 GM TAB PO SCH ×3 (10:16→16:40)
[2019-07-03] MEDS: FAMOTIDINE 20 MG TAB PO SCH (10:16)
[2019-07-03] MEDS: METOPROLOL TARTRATE 25 MG TAB PO SCH ×2 (10:16→22:24)
[2019-07-03] MEDS: ESCITALOPRAM 10 MG TAB PO SCH (10:16)
[2019-07-03] MEDS: levETIRAcetam 500 MG/5 ML ORAL LIQD PO SCH ×2 (10:17→22:23)
[2019-07-03] MEDS: traMADol 50 MG TAB PO SCH ×2 (10:17→22:24)
[2019-07-03] MEDS: HEPARIN 5,000 UNIT/1 ML VIAL SUB-Q SCH ×2 (10:22→22:38)
--- NOTE | 2019-07-03 14:37 | Progress Note ---
Assessment and Plan Patient awake and weak. Eyes sunken, Resting on T tube, FIO2 28% and O2 saturation running 98%. No acute respiratory distress. Patient afebrile. No Leukocytosis. Patients CAT scan of chest reported no PE, No Pneumonia, No CHF. Patient requesting Passey [place] valve. Patient can be discharged from pulmonary point of view. - Patient Problems (1) Acute and chronic respiratory failure Current Visit: Yes Status: Acute Qualifiers: Respiratory failure complication: hypoxia Qualified Code(s): J96.21 - Acute and chronic respiratory failure with hypoxia Plan to address problem: Patient S/P Tracheostomy. On T tube, FIO2 28%. Albuterol/atrovent aerosol treatments q 6 hours. Continue S/C Heparin. Recommend GI prophylaxis. (2) Tracheostomy dependent Current Visit: Yes Status: Acute Plan to address problem: Respiratory suctioning and trach care. Requesting Passey [place] valve. Subjective Date of service: 07/03/19 Interval history: Patient awake and weak. Eyes sunken, Resting on T tube, FIO2 28% and O2 s aturation running 98%. No acute respiratory distress. Patient afebrile. No Leukocytosis. Patients CAT scan of chest reported no PE, No Pneumonia, No CHF. Patient requesting Passey [place] valve. Patient can be discharged from pulmonary point of view. Objective Vital Signs - 12hr 07/03/19 07/03/19 07/03/19 03:04 03:36 07:28 Temperature 97.9 F Pulse Rate 64 Pulse Rate [ 91 H Anterior Bilateral Throughout] Pulse Rate [ 92 H Bilateral] Respiratory 19 20 Rate Respiratory 18 Rate [Anterior Bilateral Throughout] Respiratory 18 Rate [Bilateral ] Blood Pressure 148/78 O2 Sat by Pulse 100 Oximetry O2 Sat by Pulse Oximetry [ Assessment] 07/03/19 07/03/19 07/03/19 07:55 08:20 10:00 Temperature 97.4 F L Pulse Rate 74 73 Pulse Rate [ 70 Anterior Bilateral Throughout] Pulse Rate [ Bilateral] Respiratory 18 Rate Respiratory 20 Rate [Anterior Bilateral Throughout] Respiratory Rate [Bilateral ] Blood Pressure 123/75 O2 Sat by Pulse 98 96 Oximetry O2 Sat by Pulse 98 Oximetry [ Assessment] 07/03/19 12:04 Temperature 97.6 F Pulse Rate 75 Pulse Rate [ Anterior Bilateral Throughout] Pulse Rate [ Bilateral] Respiratory 18 Rate Respiratory Rate [Anterior Bilateral Throughout] Respiratory Rate [Bilateral ] Blood Pressure 138/84 O2 Sat by Pulse 98 Oximetry O2 Sat by Pulse Oximetry [ Assessment] Constitutional: no acute distress, alert, other (Weak, Eyes sunken.) Eyes: non-icteric ENT: oropharynx moist Neck: supple, no lymphadenopathy Ascultation: Bilateral: diminished breath sounds, other (Prolonged expiratory phase.) Cardiovascular: regular rate and rhythm Gastrointestinal: normoactive bowel sounds, soft, non-tender Integumentary: normal Extremities: no cyanosis, no edema Neurologic: non-focal exam, pupils equal and round, CN II-XII normal Psychiatric: depressed CBC and BMP: 06/29/19 05:25 07/02/19 05:22 ABG, PT/INR, D-dimer: ABG POC ABG pH 7.390 (7.35-7.45) 06/28/19 07:22 POC ABG pCO2 45.1 (35-45) H 06/28/19 07:22 POC ABG pO2 75 (80-105) L 06/28/19 07:22 POC ABG HCO3 27.3 (22-26 mml/L) 06/28/19 07:22 POC ABG Total CO2 29 (23-27mmol/L) 06/28/19 07:22 POC ABG O2 Sat 95 06/28/19 07:22 PT/INR, D-dimer PT 13.2 Sec. (12.2-14.9) 06/28/19 07:12 INR 1.03 (0.87-1.13) 06/28/19 07:12 D-Dimer > 11067 ng/mlDDU (0-234) H 06/28/19 07:12 Abnormal lab findings: Abnormal Labs 06/28/19 06/28/19 06/28/19 07:12 07:12 07:12 RDW 16.7 H Lymph % (Auto) 10.3 L [place] % (Auto) Lymph # 1.0 L Seg Neutrophils % 82.0 H Seg Neutrophils # 8.0 H D-Dimer > 57551 H POC ABG pCO2 POC ABG pO2 Sodium 120 L Potassium Chloride 84.0 L Carbon Dioxide BUN Creatinine 0.4 L Glucose 136 H Alkaline Phosphatase Albumin Urine Chloride Vancomycin Trough 06/28/19 06/28/19 06/29/19 07:22 Unknown 04:29 RDW Lymph % (Auto) [place] % (Auto) Lymph # Seg Neutrophils % Seg Neutrophils # D-Dimer POC ABG pCO2 45.1 H POC ABG pO2 75 L Sodium 126 L Potassium Chloride 90.6 L Carbon Dioxide 19 L BUN Creatinine 0.3 L Glucose Alkaline Phosphatase 227 H Albumin 3.0 L Urine Chloride 34.4 L Vancomycin Trough 06/29/19 06/30/19 06/30/19 05:25 09:36 14:13 RDW 17.4 H Lymph % (Auto) [place] % (Auto) 8.8 H Lymph # 1.0 L Seg Neutrophils % 75.8 H Seg Neutrophils # D-Dimer POC ABG pCO2 POC ABG pO2 Sodium 127 L Potassium 5.6 H D Chloride 91.9 L Carbon Dioxide BUN 6 L Creatinine 0.3 L Glucose Alkaline Phosphatase Albumin Urine Chloride Vancomycin Trough 20.5 H 07/01/19 07/02/19 09:19 05:22 RDW Lymph % (Auto) [place] % (Auto) Lymph # Seg Neutrophils % Seg Neutrophils # D-Dimer POC ABG pCO2 POC ABG pO2 Sodium 134 L D 131 L Potassium Chloride 96.4 L 92.6 L Carbon Dioxide BUN 6 L Creatinine 0.3 L 0.3 L Glucose Alkaline Phosphatase Albumin Urine Chloride Vancomycin Trough
[2019-07-04] MEDS: ACETAMINOPHEN 325 MG TAB PO SCH ×3 (00:05→12:01)
[2019-07-04] MEDS: IPRATROPIUM/ALBUTEROL SULFATE 3 ML AMPUL.NEB IH SCH ×3 (01:03→13:23)
[2019-07-04] MEDS: MORPHINE 2 MG/1 ML INJ IV PRN (03:31)
[2019-07-04] MEDS: traMADol 50 MG TAB PO SCH (10:03)
[2019-07-04] MEDS: FAMOTIDINE 20 MG TAB PO SCH (10:03)
[2019-07-04] MEDS: levETIRAcetam 500 MG/5 ML ORAL LIQD PO SCH (10:03)
[2019-07-04] MEDS: SODIUM CHLORIDE 1 GM TAB PO SCH ×2 (10:04→13:16)
[2019-07-04] MEDS: ESCITALOPRAM 10 MG TAB PO SCH (10:04)
[2019-07-04] MEDS: METOPROLOL TARTRATE 25 MG TAB PO SCH (10:04)
[2019-07-04] MEDS: HEPARIN 5,000 UNIT/1 ML VIAL SUB-Q SCH (10:15)
--- NOTE | 2019-07-04 10:34 | Progress Note ---
Assessment and Plan Cultures: Blood culture 06/30/2019 no growth Tracheal aspirated 06/30/2019 usual respiratory [place] Assessment: 58 y/o female with history of COPD, chronic respiratory failure s/p trach, dementia hypertension, admitted on 06/28/2019 due to be found in respiratory distress at her [facility] and low Sats in the 50s: 1) COPD exacerbation, no evidence of pneumonia, no evidence of sepsis, likely viral, she is younger than 65 y/o and no cardiac history. Patient with extensive drug allergies. Received vancomycin and aztreonam for 24h. 2) Acute on chronic respiratory failure Recommendations: Procal normal Continue off antibiotics OK to DC from ID perspective Will sign off. Please call with any questions. Fabiana Abel MD [facility], [place], [facility] M: [phone] O: [phone] F: [phone] Subjective Date of service: 07/04/19 Interval history: Afebrile off antibiotics. imaging without pneumonia. No new issues. Objective - Exam Narrative Exam: General appearance: Alert in NAD non verbal Eyes: anicteric sclerae, moist conjunctivae; no lid-lag; PERRLA HENT: Atraumatic; oropharynx limited Neck: Trach with adames secretions Lungs: isaac rhonchi CV: RRR no murmur Abdomen: Soft, non-tender Extremities: non edema Skin: No rash. Psych: no agitated Neuro: alert and oriented x 3. Moving all extermities - Constitutional Vitals: Vital Signs Temp Pulse Resp BP Pulse Ox 98.0 F 72 20 135/63 100 07/04/19 07:49 07/04/19 07:49 07/04/19 10:03 07/04/19 07:49 07/04/19 07:49 Temperature -Last 24 Hours Temperature 98.0 F Temperature 97.9 F Temperature 98.3 F Temperature 98.3 F Temperature 98.4 F Temperature 97.6 F - Labs CBC & Chem 7: 06/29/19 05:25 07/02/19 05:22
--- NOTE | 2019-07-04 11:38 | Discharge Summary ---
Providers - Providers Date of Admission: 06/28/19 12:20 Date of discharge: 07/04/19 Attending physician: MAURICIO SONG 06/28/19 12:41 Physical Therapy Evaluation and Treat [CONS] Routine Comment: Reason For Exam: weakness 06/28/19 19:19 Speech Therapy Evaluation and Treat [CONS] Routine Reason For Exam: Swallow evaluation 06/30/19 13:29 Consult to Physician [CONS] Routine Comment: Consulting Provider: SIGIFREDO DANIEL Physician Instructions: Reason For Exam: pna 06/30/19 15:24 Consult to Physician [CONS] Routine Comment: spoke with Sam at the [facility] service Consulting Provider: ELVIS OSORIO Physician Instructions: Reason For Exam: acute on chronic respiratory failure 07/04/19 08:57 Speech Therapy Eval for [place] Valve [CONS] Routine Reason For Exam: pulm /family requested Primary care physician: REGI TUBBS Hospitalization Reason for admission: Acute on chronic resp failure Condition: Stable Pertinent studies: Tests Done so far; Chest x-ray;: left lower lobe opacity, CTA chest: negative,for PE, CHF and pneumonia LE Venous Doppler : Negative Modified barium swallow; Hospital course: 58 YO Female patient a NH Resident at [facility] with Chronic Respiratory Failure with Trach in place, HTN, Seizure Disorder, Debility was admitted with acute on chronic respiratory failure and with discharge coming from trach site. Patient was evaluated and treated appropriately. symptoms improved. Today patient is comfortable,Vital signs stable.Physical exam prior to DC is unremarkable. Stable at discharge Discharge Diagnosis: --Pneumonia, suspected :Pneumonia ruled out DC antibiotics,No evidence of Pneumonia on CXR /CT chest No fever,no leukocytosis,Monitor --Hyponatremia: mild improvement cont ,IV fluids,monitor electrolytes --Acute and chronic respiratory failure: likely from aspiration Pneumonia --h/o Tracheostomy,Trach care cont pulse oximetry, nebulizer therapy, NIPPV as needed pulmonary toilet. Trach Care. Pulmonary following --HTN (hypertension);Well controlled today Monitor BP q shift, supportive care. -- H/O Seizure: Seizure precautions,keppra,supportive care --Elevated d-dimer; CT negative for PE, LE Doppler negative for DVT -- Gen .Debility supportive care, PT consulted --Moderate malnutrition/hypoalbuminemia: nutrition supplements, nutrition consult Advance diet to mechanical soft as tolerated --DVT prophylaxis SCD to BLE while in bed, prophylactic heparin. Plan of care reviwed with the patient and her nurse . Disposition: Return to SNF Patient is stable at discharge. Disposition: [place] Time spent for discharge: 32 min Core Measure Documentation - Palliative Care Palliative Care/ Comfort Measures: Not Applicable - Core Measures Any of the following diagnoses?: none Exam - Constitutional Vitals: Temp Pulse Resp BP Pulse Ox 98.0 F 72 20 135/63 100 07/04/19 07:49 07/04/19 07:49 07/04/19 10:03 07/04/19 07:49 07/04/19 07:49 General appearance: Present: no acute distress, cachectic, disheveled - EENT Eyes: Present: PERRL, EOM intact ENT: hearing intact, clear oral mucosa, other (trach) - Neck Neck: Present: supple - Respiratory Respiratory effort: normal Respiratory: bilateral: diminished, rhonchi, negative: rales, wheezing - Cardiovascular Rhythm: regular Heart Sounds: Present: S1 & S2 - Extremities Extremities: no ischemia, No edema - Abdominal General gastrointestinal: Present: soft, non-tender, non-distended, normal bowel sounds - Integumentary Integumentary: Present: clear, warm - Musculoskeletal Musculoskeletal: generalized weakness - Psychiatric Psychiatric: cooperative - Neurologic Neurologic: other (residual weakness) Plan Activity: advance as tolerated Diet: other (soft diet , advance as tolerated) Additional Instructions: Aspiration precautions. Fall precautions. Trach care. Oxygen as needed Follow up with: REGI TUBBS MD [Primary Care Provider] - 7 Days ROSEMARIE SELLERS MD [Staff Physician] - 7 Days
--- NOTE | 2019-07-04 13:28 | Progress Note ---
Assessment and Plan Patient awake and weak. Eyes sunken, Resting on T tube, FIO2 28% and O2 saturation running 98%. No acute respiratory distress. Patient afebrile. No Leukocytosis. Patients CAT scan of chest reported no PE, No Pneumonia, No CHF. Patient requesting Passey [place] valve. Patient can be discharged from pulmonary point of view. - Patient Problems (1) Acute and chronic respiratory failure Status: Acute Qualifiers: Plan to address problem: Patient S/P Tracheostomy. On T tube, FIO2 28%. Albuterol/atrovent aerosol treatments q 6 hours. Continue S/C Heparin. Recommend GI prophylaxis. (2) Tracheostomy dependent Status: Acute Plan to address problem: Respiratory suctioning and trach care. Requesting Passey nadeem valve. Subjective Date of service: 07/04/19 Interval history: Patient awake and weak. Eyes sunken, Resting on T tube, FIO2 28% and O2 saturation running 98%. No acute respiratory distress. Patient afebrile. No Leukocytosis. Patients CAT scan of chest reported no PE, No Pneumonia, No CHF. Patient requesting Passey [place]ade[place] valve. Patient can be discharged from pulmonary point of view. Objective Vital Signs - 12hr 07/04/19 07/04/19 07/04/19 03:15 03:31 04:01 Temperature 97.9 F Pulse Rate 84 Pulse Rate [ Anterior Bilateral Throughout] Respiratory 18 20 20 Rate Respiratory Rate [Anterior Bilateral Throughout] Blood Pressure 134/87 O2 Sat by Pulse 100 Oximetry O2 Sat by Pulse Oximetry [ Assessment] 07/04/19 07/04/19 07/04/19 06:38 07:42 07:43 Temperature Pulse Rate Pulse Rate [ 82 Anterior Bilateral Throughout] Respiratory 20 Rate Respiratory 18 Rate [Anterior Bilateral Throughout] Blood Pressure O2 Sat by Pulse Oximetry O2 Sat by Pulse 96 Oximetry [ Assessment] 07/04/19 07/04/19 07/04/19 07:44 07:49 10:03 Temperature 98.0 F Pulse Rate 72 Pulse Rate [ Anterior Bilateral Throughout] Respiratory 18 20 Rate Respiratory Rate [Anterior Bilateral Throughout] Blood Pressure 135/63 O2 Sat by Pulse 96 100 Oximetry O2 Sat by Pulse Oximetry [ Assessment] 07/04/19 07/04/19 11:58 13:24 Temperature 98.4 F Pulse Rate 75 Pulse Rate [ 86 Anterior Bilateral Throughout] Respiratory 18 Rate Respiratory 18 Rate [Anterior Bilateral Throughout] Blood Pressure 145/78 O2 Sat by Pulse 100 Oximetry O2 Sat by Pulse Oximetry [ Assessment] Constitutional: no acute distress, alert, other (Weak, Eyes sunken.) Eyes: non-icteric ENT: oropharynx moist Neck: supple, no lymphadenopathy Ascultation: Bilateral: diminished breath sounds, other (Prolonged expiratory phase.) Cardiovascular: regular rate and rhythm Gastrointestinal: normoactive bowel sounds, soft, non-tender Integumentary: normal Extremities: no cyanosis, no edema Neurologic: non-focal exam, pupils equal and round, CN II-XII normal Psychiatric: depressed CBC and BMP: 06/29/19 05:25 07/02/19 05:22 ABG, PT/INR, D-dimer: ABG POC ABG pH 7.390 (7.35-7.45) 06/28/19 07:22 POC ABG pCO2 45.1 (35-45) H 06/28/19 07:22 POC ABG pO2 75 (80-105) L 06/28/19 07:22 POC ABG HCO3 27.3 (22-26 mml/L) 06/28/19 07:22 POC ABG Total CO2 29 (23-27mmol/L) 06/28/19 07:22 POC ABG O2 Sat 95 06/28/19 07:22 PT/INR, D-dimer PT 13.2 Sec. (12.2-14.9) 06/28/19 07:12 INR 1.03 (0.87-1.13) 06/28/19 07:12 D-Dimer > 72007 ng/mlDDU (0-234) H 06/28/19 07:12 Abnormal lab findings: Abnormal Labs 06/28/19 06/28/19 06/28/19 07:12 07:12 07:12 RDW 16.7 H Lymph % (Auto) 10.3 L [place] % (Auto) Lymph # 1.0 L Seg Neutrophils % 82.0 H Seg Neutrophils # 8.0 H D-Dimer > 37170 H POC ABG pCO2 POC ABG pO2 Sodium 120 L Potassium Chloride 84.0 L Carbon Dioxide BUN Creatinine 0.4 L Glucose 136 H Alkaline Phosphatase Albumin Urine Chloride Vancomycin Trough 06/28/19 06/28/19 06/29/19 07:22 Unknown 04:29 RDW Lymph % (Auto) [place] % (Auto) Lymph # Seg Neutrophils % Seg Neutrophils # D-Dimer POC ABG pCO2 45.1 H POC ABG pO2 75 L Sodium 126 L Potassium Chloride 90.6 L Carbon Dioxide 19 L BUN Creatinine 0.3 L Glucose Alkaline Phosphatase 227 H Albumin 3.0 L Urine Chloride 34.4 L Vancomycin Trough 06/29/19 06/30/19 06/30/19 05:25 09:36 14:13 RDW 17.4 H Lymph % (Auto) [place] % (Auto) 8.8 H Lymph # 1.0 L Seg Neutrophils % 75.8 H Seg Neutrophils # D-Dimer POC ABG pCO2 POC ABG pO2 Sodium 127 L Potassium 5.6 H D Chloride 91.9 L Carbon Dioxide BUN 6 L Creatinine 0.3 L Glucose Alkaline Phosphatase Albumin Urine Chloride Vancomycin Trough 20.5 H 07/01/19 07/02/19 09:19 05:22 RDW Lymph % (Auto) [place] % (Auto) Lymph # Seg Neutrophils % Seg Neutrophils # D-Dimer POC ABG pCO2 POC ABG pO2 Sodium 134 L D 131 L Potassium Chloride 96.4 L 92.6 L Carbon Dioxide BUN 6 L Creatinine 0.3 L 0.3 L Glucose Alkaline Phosphatase Albumin Urine Chloride Vancomycin Trough
[2019-07-04 16:30] VITALS: BP 128/78
== END 2019-07-04 16:45 | DRG 189 ==
LOC: ED 06:52 → CC1 12:20 → 4A 06-30 19:14
PROVIDERS: ADMIT Internal Medicine; ATTEND Internal Medicine
PROC: 4A033R1 Measurement of Arterial Saturation, Peripheral, Percutaneous Approach (ICD-10-PCS; principal; 2019-06-28)
DX: J96.21 Acute and chronic respiratory failure with hypoxia (principal); G93.41 Metabolic encephalopathy; E44.0 Moderate protein-calorie malnutrition; Z68.1 Body mass index [BMI] 19.9 or less, adult; J44.1 Chronic obstructive pulmonary disease with (acute) exacerbation; E87.1 Hypo-osmolality and hyponatremia; I10 Essential (primary) hypertension; R53.81 Other malaise; R73.9 Hyperglycemia, unspecified; F03.90 Unspecified dementia, unspecified severity, without behavioral disturbance, psychotic disturbance, mood disturbance, and anxiety; G40.909 Epilepsy, unspecified, not intractable, without status epilepticus; Z82.49 Family history of ischemic heart disease and other diseases of the circulatory system; Z93.0 Tracheostomy status; Z88.2 Allergy status to sulfonamides; Z88.1 Allergy status to other antibiotic agents
CPT/HCPCS: 36415; 71045; 71275; 74230; 80048; 80053; 80202; 81001; 82436; 82803; 82962; 83735; 84145; 84300; 84484; 85025; 85379; 85610; 87040; 87070; 87205; 93005; 93010; 93970; 94640; 94760; G0378; J1644; J1953; J2270; J2405; J3370; J7030; J7050; Q9967

== ENCOUNTER 2019-07-13 09:36 | Inpatient (IN) | payer MEDICARE ==
[2019-07-13] MEDS ORDERED: NACL 0.9% 1000 ML 1,000 ML IV ONE ×2 (10:02→10:59)
[2019-07-13] MEDS ORDERED: SOLU-Medrol IV ONE (10:02)
--- NOTE | 2019-07-13 10:06 | Emergency Department Report ---
HPI - General Chief Complaint: Dyspnea/Respdistress Time Seen by Provider: 07/13/19 10:02 - HPI HPI: 58 YO FEMALE WHO WAS RECENTLY ADMITTED[facility]06 FOR A/C HYPOXIC RESP FAILURE; RETURNS TO ER TODAY WITH NUSRAT. PER EMS OXYGEN SATURATIONS WERE IN 80'S ON ARRIVAL TO SNF. PT TACHYCARDIC AND AFEBRILE ON ADMIT. PH HAS DIFFICULTY SPEAKING AND CAN NOT ANSWER QUESTIONS. SNF DOCUMENTATION REVIEWED HAS BEEN ON NO ANTIBIOTICS AT SNF. SEE MEDS SENT WITH PT SHE IS AN ILL FRAIL APPEARING FEMALE WITH NO 5 SHILEY CUFFLESS TRACH WHO COMES FROM SNF WITH SOB. PT IS REPORTED TO EAT. SHE HAS NO PEG TUBE. I'M CONCERNED FOR ASPIRATION DUE TO HER DEBILITY AND SOB. PMH COPD A/C HYPOXIC RESP FAILURE DEBILITY RECENT HIP FRACTURE DEBILITY HX SEIZURES HX LUMBAR DISEASE AND FRACTURE OA OHKAY OWINGEH ANXIETY MALNUTRITION HTN HYPOTHYROIDISM PSH BRAIN TUMOR REMOVED 1990 AT [facility] FULL CODE MEDS TYLENOL PRN ESCITALOPRAM PEPCID IPRAPTROP/ALBUTEROL LEVETIRACETAM METOPROLOL NORCO PRN ZOFRAN PRN NA TABS ULTRAM NOK ALLA [phone] PER SP FALL 2 M AGO AT HER HUSBANDS HOME; SHE HAD A SZ. TAKEN TO [facility]; THE DAY AFTER ADMITTED SHE WAS TRACHED. PRIOR TO THE FALL PT HAD A BRAIN TUMOR IN 1990. SINCE THEN DIZZY, NERVE DISEASE ETC. PT DID GET AROUND BUT SHE HAD A POOR QUALITY OF LIFE. DENIES PT HAVING COPD OR LUNG ISSUES PRIOR TO THAT TIME . ED Past Medical Hx - Past Medical History Previous Medical History?: Yes Hx Hypertension: Yes Hx CVA: No Hx Heart Attack/AMI: No Hx Congestive Heart Failure: No Hx Diabetes: No Hx Deep Vein Thrombosis: No Hx Pulmonary Embolism: No Hx GERD: Yes Hx Liver Disease: No Hx Renal Disease: No Hx of Cancer: Yes (BRAIN TUMOR REMOVED 1990 AT [facility]) Hx Sickle Cell Disease: No Hx Arthritis: Yes Hx Headaches / Migraines: No Hx Seizures: Yes Hx Kidney Stones: No Hx Psychiatric Treatment: No Hx Asthma: No Hx COPD: Yes Hx Tuberculosis: No Hx Dementia: No Hx HIV: No Additional medical history: L hip fx. hearing loss. respiratory failure. dysphagia. muscle weakness. anxiety. hypo-osmolality hyponatremia. lack of coordination. osteoarthitis. BRAIN TUMOR REMOVED 1990 AT [facility] - SINCE THEN DEBILITY BUT WAS ABLE TO WALK PRIOR TO FALL AND FRACTURE SUMMER 2018- THIS WAS WHEN SHE FELL, HAD SZ, AND WAS TRACHED. - Surgical History Past Surgical History?: Yes Additional Surgical History: trach 2019. BRAIN TUMOR RESECTION 1990 AT [facility] - Family History Family history: no significant - Social History Smoking Status: Never Smoker Substance Use Type: None - Medications Home Medications: Home Medications Medication Instructions Recorded Confirmed Last Taken Type Acetaminophen [Acetaminophen TAB] 650 mg PO Q6H 06/28/19 07/13/19 07/12/19 History Escitalopram [Lexapro] 10 mg PO DAILY 06/28/19 07/13/19 07/12/19 History Ipratropium/Albuterol Sulfate 1 ampul IH Q6HR 06/28/19 07/13/19 07/12/19 History [DUONEB *Not for PRN Use*] Metoprolol [Lopressor TAB] 25 mg PO BID 06/28/19 07/13/19 07/12/19 History Ondansetron [Zofran TAB] 4 mg PO Q6HR PRN 06/28/19 07/13/19 07/12/19 History Sodium Chloride 1 gm PO AC 06/28/19 07/13/19 07/12/19 History levETIRAcetam [Keppra TAB] 1,000 mg PO BID 06/28/19 07/13/19 07/12/19 History traMADol [Ultram 50 MG tab] 50 mg PO BID 06/28/19 07/13/19 07/12/19 History Famotidine [Pepcid] 20 mg PO QDAY tablet 07/04/19 07/13/19 07/12/19 Rx ED Review of Systems ROS: Stated complaint: DIFFICULTY BREATHING Other details as noted in HPI Comment: All other systems reviewed and negative Physical Exam - Physical Exam Physical Exam: FRAIL DEBILITATED ILL APPEARING FEMALE EYES SUNKEN PUPILS UNEQUAL GENERALIZED WEAKNESS OLD INT RA NOTED- RN DC NO HAIDER NO PEG NO 6 TRACH CUFFLESS SHILEY- OCCLUDED WITH DARK SECRETIONS ON ARRIVAL; RT CLEANED AND REPLACED WITH TRACH OCCLUDED PT CAN WHISPER ONLY- STATES SHE LOST HER VOICE LUNGS COARSE BILATERAL S1S2 TACHYCARDIA ABD SNT NO EDEMA/JVD ED Course - Reevaluation(s) Reevaluation #1: 07/13/19 1030 NOTIFIED OF PT ARRIVAL AND TREATMENT IN ER. HE WILL COME LATER TODAY; HE IS CURRENTLY WITH HER 2 GR[facility] CHILDREN ED Medical Decision Making - Lab Data Result diagrams: 07/13/19 10:26 07/13/19 10:26 - EKG Data EKG shows normal: sinus rhythm Rate: tachycardia - EKG Data When compared to previous EKG there are: no significant change Interpretation: no acute changes - Radiology Data Radiology results: report reviewed, image reviewed NEW INFILTRATE FROM 10-1 LLL - Medical Decision Making XRAY POS FOR LLL PNA RECENT HOSP DC 2L NS VANC AND AZTRECNAM GIVEN -TOLERATED LAST ADMIT HR HAS IMPROVED WITH LABS/CULTURES/SPUTUM CULTURE/UA ABG NOTED DISCUSSED WITH DR MARTINEZ [address] YUSUF- HE WILL SEE PT. Lab Results 07/13/19 07/13/19 07/13/19 Range/Units 10:26 10:26 10:26 WBC 6.8 (4.5-11.0) K/mm3 RBC 3.77 (3.65-5.03) M/mm3 Hgb 10.7 (10.1-14.3) gm/dl Hct 33.1 (30.3-42.9) % MCV 88 (79-97) fl MCH 28 (28-32) pg MCHC 32 (30-34) % RDW 16.6 H (13.2-15.2) % Plt Count 393 (140-440) K/mm3 Lymph % (Auto) 10.0 L (13.4-35.0) % [place] % (Auto) 5.2 (0.0-7.3) % Eos % (Auto) 1.6 (0.0-4.3) % Baso % (Auto) 0.5 (0.0-1.8) % Lymph # 0.7 L (1.2-5.4) K/mm3 [place] # 0.4 (0.0-0.8) K/mm3 Eos # 0.1 (0.0-0.4) K/mm3 Baso # 0.0 (0.0-0.1) K/mm3 Seg Neutrophils % 82.7 H (40.0-70.0) % Seg Neutrophils # 5.7 (1.8-7.7) K/mm3 PT (12.2-14.9) Sec. INR (0.87-1.13) APTT (24.2-36.6) Sec. Sodium 135 L (137-145) mmol/L Potassium 4.0 (3.6-5.0) mmol/L Chloride 95.4 L (98-107) mmol/L Carbon Dioxide 25 (22-30) mmol/L Anion Gap 19 mmol/L BUN 7 (7-17) mg/dL Creatinine 0.4 L (0.7-1.2) mg/dL Estimated GFR > 60 ml/min BUN/Creatinine Ratio 18 % Glucose 99 (65-100) mg/dL Lactic Acid 1.10 (0.7-2.0) mmol/L Calcium 9.1 (8.4-10.2) mg/dL Total Bilirubin 0.40 (0.1-1.2) mg/dL AST 22 (5-40) units/L ALT 11 (7-56) units/L Alkaline Phosphatase 220 H (35-129) units/L Total Creatine Kinase (30-135) units/L CK-MB (CK-2) (0.0-4.0) ng/mL CK-MB (CK-2) Rel Index (0-4) Troponin T (0.00-0.029) ng/mL Total Protein 7.4 (6.3-8.2) g/dL Albumin 3.4 L (3.9-5) g/dL Albumin/Globulin Ratio 0.9 % Urine Color (Yellow) Urine Turbidity (Clear) Urine pH (5.0-7.0) Ur Specific [place] (1.003-1.030) Urine Protein (Negative) mg/dL Urine Glucose (UA) (Negative) mg/dL Urine Ketones (Negative) mg/dL Urine Blood (Negative) Urine Nitrite (Negative) Urine Bilirubin (Negative) Urine Urobilinogen (<2.0) mg/dL Ur Leukocyte Esterase (Negative) Urine WBC (Auto) (0.0-6.0) /HPF Urine RBC (Auto) (0.0-6.0) /HPF U Epithel Cells (Auto) (0-13.0) /HPF Urine Mucus /HPF 07/13/19 07/13/19 07/13/19 Range/Units 10:26 10:26 10:58 WBC (4.5-11.0) K/mm3 RBC (3.65-5.03) M/mm3 Hgb (10.1-14.3) gm/dl Hct (30.3-42.9) % MCV (79-97) fl MCH (28-32) pg MCHC (30-34) % RDW (13.2-15.2) % Plt Count (140-440) K/mm3 Lymph % (Auto) (13.4-35.0) % [place] % (Auto) (0.0-7.3) % Eos % (Auto) (0.0-4.3) % Baso % (Auto) (0.0-1.8) % Lymph # (1.2-5.4) K/mm3 [place] # (0.0-0.8) K/mm3 Eos # (0.0-0.4) K/mm3 Baso # (0.0-0.1) K/mm3 Seg Neutrophils % (40.0-70.0) % Seg Neutrophils # (1.8-7.7) K/mm3 PT 12.4 (12.2-14.9) Sec. INR 0.95 (0.87-1.13) APTT 38.5 H (24.2-36.6) Sec. Sodium (137-145) mmol/L Potassium (3.6-5.0) mmol/L Chloride (98-107) mmol/L Carbon Dioxide (22-30) mmol/L Anion Gap mmol/L BUN (7-17) mg/dL Creatinine (0.7-1.2) mg/dL Estimated GFR ml/min BUN/Creatinine Ratio % Glucose (65-100) mg/dL Lactic Acid (0.7-2.0) mmol/L Calcium (8.4-10.2) mg/dL Total Bilirubin (0.1-1.2) mg/dL AST (5-40) units/L ALT (7-56) units/L Alkaline Phosphatase (35-129) units/L Total Creatine Kinase 21 L (30-135) units/L CK-MB (CK-2) < 1.0 (0.0-4.0) ng/mL CK-MB (CK-2) Rel Index 4.7 H (0-4) Troponin T < 0.010 (0.00-0.029) ng/mL Total Protein (6.3-8.2) g/dL Albumin (3.9-5) g/dL Albumin/Globulin Ratio % Urine Color Yellow (Yellow) Urine Turbidity Clear (Clear) Urine pH 6.0 (5.0-7.0) Ur Specific [place] 1.017 (1.003-1.030) Urine Protein 100 mg/dl (Negative) mg/dL Urine Glucose (UA) Neg (Negative) mg/dL Urine Ketones Neg (Negative) mg/dL Urine Blood Sm (Negative) Urine Nitrite Neg (Negative) Urine Bilirubin Neg (Negative) Urine Urobilinogen < 2.0 (<2.0) mg/dL Ur Leukocyte Esterase Neg (Negative) Urine WBC (Auto) 7.0 H (0.0-6.0) /HPF Urine RBC (Auto) 10.0 (0.0-6.0) /HPF U Epithel Cells (Auto) < 1.0 (0-13.0) /HPF Urine Mucus Few /HPF Vital Signs 07/13/19 07/13/19 07/13/19 09:39 09:45 09:46 Temperature Pulse Rate 130 H Respiratory 22 26 H Rate Blood Pressure Blood Pressure [Right] O2 Sat by Pulse 98 100 57 L Oximetry 07/13/19 07/13/19 07/13/19 10:00 10:16 10:23 Temperature 98.6 F Pulse Rate 107 H 94 H 109 H Respiratory 16 12 20 Rate Blood Pressure 103/53 103/53 Blood Pressure 106/45 [Right] O2 Sat by Pulse 96 97 100 Oximetry 07/13/19 07/13/19 07/13/19 10:30 10:46 11:33 Temperature Pulse Rate 101 H 96 H 94 H Respiratory 12 12 16 Rate Blood Pressure 103/53 103/53 Blood Pressure 111/57 [Right] O2 Sat by Pulse 97 100 99 Oximetry XRAY NOTED LABS NOTED DISCUSSED WITH DR MARTINEZ FAMILY HAS BEEN NOTIFIED IV ANTIBIOTICS- PT TOLERATED ON LAST ADMIT; SHE HAS LONG LIST OF ALLERGIES. DDIMER NOTED- CTA ORDERED [address] YUSUF PT TO BE ADMITTED FOR FURTHER EVALUATION AND TREATMENT. - Differential Diagnosis A/C RESP FAILURE RO PNA Critical care attestation.: If time is entered above; I have spent that time in minutes in the direct care of this critically ill patient, excluding procedure time. ED Disposition Clinical Impression: Debility, Acute and chronic respiratory failure, Tracheostomy dependent, Pneumonia, Tachycardia, Hyponatremia, Elevated d-dimer, Malnutrition Disposition: DC-09 OP ADMIT IP TO THIS HOSP Is pt being admited?: Yes Does the pt Need Aspirin: No Condition: Stable Time of Disposition: 10:38
--- NOTE | 2019-07-13 10:47 | XRay Report ---
CHEST 1 VIEW INDICATION: COUGH. COMPARISON: 06/28/2019 FINDINGS: Support devices: Tracheostomy remains in good position. Heart: Within normal limits. Lungs/Pleura: Ill-defined airspace opacity has developed in the lingula and left lower lobe concernin g for pneumonia. The right lung is clear. No pleural effusion or pneumothorax. Additional findings: None. IMPRESSION: Left lung infiltrate concerning for pneumonia. Signer Name: Camden Beyer Jr, MD Signed: 07/13/2019 10:42 AM Workstation Name: [id number]
[2019-07-13 11:30] LABS: Bilirubin,Urine NEG (Negative); Blood,Urine SM (Negative); Color,Urine Yellow (Yellow); Mucus,Urine FEW /HPF; Urobilinogen,Urine < 2.0 mg/dL (<2.0)
[2019-07-13 11:58] LABS: Basophils % (Auto) 0.5 % (0.0-1.8); Eosinophils # (Auto) 0.1 K/mm3 (0.0-0.4); Eosinophils % (Auto) 1.6 % (0.0-4.3); Hematocrit 33.1 % (30.3-42.9); Hemoglobin 10.7 gm/dl (10.1-14.3); Lymphocytes # (Auto) 0.7 K/mm3 (1.2-5.4); Mean Corpuscular HGB Conc 32 % (30-34); Mean Corpuscular Volume 88 fl (79-97); Monocytes # (Auto) 0.4 K/mm3 (0.0-0.8); Monocytes % (Auto) 5.2 % (0.0-7.3); Platelet Count 393 K/mm3 (140-440); Red Blood Count 3.77 M/mm3 (3.65-5.03); Red Cell Distribution Width 16.6 % (13.2-15.2)
[2019-07-13] MEDS ORDERED: AZACTAM/NS 1 GM/50 ML 1 GM/50 ML VIAL IV ONE (11:58)
[2019-07-13] MEDS ORDERED: VANCOMYCIN/NS 1 GM/250 ML 1 GM/250 ML BAG IV ONE (12:00)
[2019-07-13 12:07] LABS: INR 0.95 (0.87-1.13)
[2019-07-13 12:08] LABS: Partial Thromboplastin Time 38.5 Sec. (24.2-36.6)
[2019-07-13 12:22] LABS: Alanine Aminotransferase 11 units/L (7-56); Albumin 3.4 g/dL (3.9-5); BUN/Creatinine Ratio 18; Blood Urea Nitrogen 7 mg/dL (7-17); Calcium 9.1 mg/dL (8.4-10.2); Hemolysis Index 29
[2019-07-13 12:25] LABS: Creatine Kinase MB < 1.0 ng/mL (0.0-4.0)
[2019-07-13] MEDS ORDERED: SODIUM CHLORIDE FLUSH SYRINGE 10 ML IV PRN (13:10)
[2019-07-13] MEDS ORDERED: PROVENTIL IH PRN (13:10)
--- NOTE | 2019-07-13 13:13 | History and Physical Report ---
History of Present Illness Chief complaint: She could not breathe History of present illness: 58 YO Female Half-Way Facility Resident at [facility] with Chronic Respiratory Failure with Trach in place, HTN, Brain Tumor S/P resection complicated by Seizure Disorder, Debility presents to ED for evaluation. Pt is unable to provide detailed history due to trach placement. Pt history taken from medical record as well as ED staff, and [facility] staff. As per staff, the patient was found to be in respiratory distress with non productive cough this morning after eating breakfast with discharge coming from trach site with pulse oximetry of 80% on supplemental oxygen. EMS notified and upon arrival the patient was found to be in respiratory distress and treated with supplemental oxygen and nebulizer therapy without significant improvement. Pt transported to [facility]. Pt seen and evaluated in ED and found to have Acute on Chronic Hypoxemic Respiratory Failure complicated by LLL Pneumonia suspected secondary to Aspiration on gastric contents. At time of my exam the patient is lethargic, recumbent and using accessory muscles to breathe S/P nebulizer therapy and is unable to provide history. Pt initiated on Pneumonia Protocol and admitted to medical floor. Prior admission on 06/28/19 reviewed. All listed medication reconciled at time of admission. Past History Past Medical History: hypertension, seizures, other (see hpi) Past Surgical History: Other (Trach placement, brain surgery) Social history: . denies: smoking, alcohol abuse, prescription drug abuse Family history: no significant family history (reviewed) Medications and Allergies Allergies Allergy/AdvReac Type Severity Reaction Status Date / Time amoxicillin [From Augmentin] Allergy Anaphylaxis Verified 06/28/19 07:17 cefdinir [From Omnicef] Allergy Anaphylaxis Verified 06/28/19 07:17 cephalexin [From Keflex] Allergy Anaphylaxis Verified 06/28/19 07:17 clarithromycin Allergy Anaphylaxis Verified 06/28/19 07:17 clavulanic acid Allergy Anaphylaxis Verified 06/28/19 07:17 [From Augmentin] doxycycline Allergy Anaphylaxis Verified 06/28/19 07:17 levofloxacin [From Levaquin] Allergy Anaphylaxis Verified 06/28/19 07:17 Sulfa (Sulfonamide Allergy Anaphylaxis Verified 06/28/19 07:17 Antibiotics) Home Medications Medication Instructions Recorded Confirmed Last Taken Type Acetaminophen [Acetaminophen TAB] 650 mg PO Q6H 06/28/19 07/13/19 07/12/19 History Escitalopram [Lexapro] 10 mg PO DAILY 06/28/19 07/13/19 07/12/19 History Ipratropium/Albuterol Sulfate 1 ampul IH Q6HR 06/28/19 07/13/19 07/12/19 History [DUONEB *Not for PRN Use*] Metoprolol [Lopressor TAB] 25 mg PO BID 06/28/19 07/13/19 07/12/19 History Ondansetron [Zofran TAB] 4 mg PO Q6HR PRN 06/28/19 07/13/19 07/12/19 History Sodium Chloride 1 gm PO AC 06/28/19 07/13/19 07/12/19 History levETIRAcetam [Keppra TAB] 1,000 mg PO BID 06/28/19 07/13/19 07/12/19 History traMADol [Ultram 50 MG tab] 50 mg PO BID 06/28/19 07/13/19 07/12/19 History Famotidine [Pepcid] 20 mg PO QDAY tablet 07/04/19 07/13/19 07/12/19 Rx Active Meds: Active Medications Albuterol (Proventil) 2.5 mg IH Q3HRT PRN PRN Reason: Shortness Of Breath Vancomycin HCl (Vancomycin/Ns 1 Gm/250 Ml) 1 gm in 250 mls @ 125 mls/hr IV ONCE ONE; Protocol Stop: 07/13/19 13:59 Sodium Chloride (Sodium Chloride Flush Syringe 10 Ml) 10 ml IV BID ROSE Sodium Chloride (Sodium Chloride Flush Syringe 10 Ml) 10 ml IV PRN PRN PRN Reason: LINE FLUSH Review of Systems ROS unobtainable: due to mental status (Due to Trach in place) All systems: negative (Due to trach in place) Exam - Constitutional Vitals: Temp Pulse Resp BP Pulse Ox 98.6 F 94 H 16 111/57 99 07/13/19 10:23 07/13/19 11:33 07/13/19 11:33 07/13/19 11:33 07/13/19 11:33 General appearance: Present: mild distress, cachectic - EENT Eyes: Present: PERRL ENT: hearing intact, clear oral mucosa - Neck Neck: Present: supple, normal ROM - Respiratory Respiratory effort: labored, accessory muscle use Respiratory: left: diminished, rhonchi - Cardiovascular Heart Sounds: Present: S1 & S2. Absent: rub, click - Extremities Extremities: pulses symmetrical, No edema Peripheral Pulses: within normal limits - Abdominal General gastrointestinal: Present: soft, non-tender, non-distended, normal bowel sounds Female genitourinary: Present: normal - Integumentary Integumentary: Present: clear, warm, dry - Musculoskeletal Musculoskeletal: generalized weakness - Psychiatric Psychiatric: appropriate mood/affect, intact judgment & insight - Neurologic Neurologic: CNII-XII intact, no focal deficits, moves all extremities, no gait normal Results - Labs CBC & Chem 7: 07/13/19 10:07/13/19 10: Labs: Abnormal lab results 07/13/19 07/13/19 07/13/19 Range/Units 10: 10: 10:26 RDW 16.6 H (13.2-15.2) % Lymph % (Auto) 10.0 L (13.4-35.0) % Lymph # 0.7 L (1.2-5.4) K/mm3 Seg Neutrophils % 82.7 H (40.0-70.0) % APTT 38.5 H (24.2-36.6) Sec. D-Dimer 2411.46 H (0-234) ng/mlDDU Sodium 135 L (137-145) mmol/L Chloride 95.4 L (98-107) mmol/L Creatinine 0.4 L (0.7-1.2) mg/dL Alkaline Phosphatase 220 H (35-129) units/L Total Creatine Kinase (30-135) units/L CK-MB (CK-2) Rel Index (0-4) Albumin 3.4 L (3.9-5) g/dL Urine WBC (Auto) (0.0-6.0) /HPF 07/13/19 07/13/19 Range/Units 10: 10:58 RDW (13.2-15.2) % Lymph % (Auto) (13.4-35.0) % Lymph # (1.2-5.4) K/mm3 Seg Neutrophils % (40.0-70.0) % APTT (24.2-36.6) Sec. D-Dimer (0-234) ng/mlDDU Sodium (137-145) mmol/L Chloride (98-107) mmol/L Creatinine (0.7-1.2) mg/dL Alkaline Phosphatase (35-129) units/L Total Creatine Kinase 21 L (30-135) units/L CK-MB (CK-2) Rel Index 4.7 H (0-4) Albumin (3.9-5) g/dL Urine WBC (Auto) 7.0 H (0.0-6.0) /HPF Assessment and Plan - Patient Problems (1) Aspiration pneumonia Current Visit: Yes Status: Acute Qualifiers: Laterality: left Lung location: lower lobe of lung Plan to address problem: Pneumonia protocol: IV antibiotic therapy, chest x ray, CTA chest, supplemental oxygen, nebulizer therapy, swallow screen, speech therapy consulted for swallow evaluation and dietary/peg tube recommendations, aspiration precautions, NIPPV as clinically indicated. (2) Acute and chronic respiratory failure Current Visit: Yes Status: Acute Qualifiers: Plan to address problem: Supplemental oxygen, nebulizer therapy, CTA chest, D dimer, chest x ray, pulse oximetry, NIPPV as clinically indicated. (3) Malnutrition Current Visit: Yes Status: Acute Qualifiers: Protein-calorie malnutrition severity: severe Plan to address problem: Increased protein intake, dietary supplementation (4) Tracheostomy dependent Current Visit: Yes Status: Acute Plan to address problem: Trach care, (5) HTN (hypertension) Current Visit: No Status: Acute Qualifiers: Hypertension type: essential hypertension Qualified Code(s): I10 - Essential (primary) hypertension Plan to address problem: Monitor BP q shift, supportive care. (6) Seizure Current Visit: No Status: Acute Plan to address problem: seizure precautions, neuro check, supportive care. (7) DVT prophylaxis Current Visit: No Status: Acute Plan to address problem: SCD to BLE while in bed, prophylactic lovenox
--- NOTE | 2019-07-13 14:53 | Cat Scan Report ---
CTA CHEST WITH CONTRAST INDICATION : Shortness of breath. TECHNIQUE: Axial imaging performed through the chest, with contrast bolus timing set to maximize opa cification of the pulmonary arteries. Sagittal and coronal reformatted images. 3-plane MIP reformatte d images were obtained. All CT scans at this location are performed using CT dose reduction for ALAR A by means of automated exposure control. 100 mL of intravenous contrast administered. COMPARISON: 06/28/2019 FINDINGS: Bolus: Contrast bolus timing is adequate. PTE: No filling defect is present to suggest PTE. Mediastinum: Heart and great vessels appear normal. No pathologic mediastinal adenopathy. A tracheo stomy is in place at the level of the clavicles. Lungs: Bibasilar consolidations are identified, left greater than right. This could represent aspira tion/pneumonia. Atelectatic changes could also be considered. The upper lung zones are clear. No pleu ral effusion or pneumothorax is identified. Bones: Degenerative changes in the spine with nothing acute. Healing left rib fractures are noted at levels 4-6. Upper abdomen: Limited images of the upper abdomen demonstrates small perisplenic ascites IMPRESSION: No evidence for pulmonary embolus. Bilateral lower lobe consolidations, left greater than right. Correlate for aspiration or pneumonia. Small ascites in the upper abdomen. Signer Name: Camden Beyer Jr, MD Signed: 07/13/2019 2:49 PM Workstation Name: [id number]
[2019-07-13] MEDS ORDERED: NON-FORMULARY (Ondansetron [Zofran Tab] 4 MG) PO PRN (19:37)
[2019-07-13] MEDS ORDERED: ZOFRAN ODT PO PRN (20:08)
[2019-07-13] MEDS: DUONEB *Not for PRN Use IH SCH (20:33)
[2019-07-13] MEDS ORDERED: NON-FORMULARY (Levetiracetam [Keppra Tab] 1,000 MG) PO SCH (22:00)
[2019-07-13] MEDS: FLAGYL 500 MG/100 ML 500 MG/100 ML BAG IV SCH (22:48)
[2019-07-13] MEDS: ULTRAM PO SCH (22:48)
[2019-07-13] MEDS: KEPPRA PO SCH (22:49)
[2019-07-13] MEDS: TYLENOL PO SCH ×2 (22:49→22:52)
[2019-07-13] MEDS: SODIUM CHLORIDE FLUSH SYRINGE 10 ML IV SCH (22:50)
[2019-07-13] MEDS: METOPROLOL PO SCH (22:53)
[2019-07-14] MEDS: DUONEB *Not for PRN Use IH SCH ×4 (02:11→19:29)
[2019-07-14] MEDS: TYLENOL PO SCH ×4 (02:43→21:33)
[2019-07-14 06:28] LABS: Basophils % (Auto) 0.2 % (0.0-1.8); Hematocrit 28.9 % (30.3-42.9); Hemoglobin 9.5 gm/dl (10.1-14.3); Lymphocytes % (Auto) 18.9 % (13.4-35.0); Mean Corpuscular HGB Conc 33 % (30-34); Mean Corpuscular Volume 88 fl (79-97); Monocytes # (Auto) 0.3 K/mm3 (0.0-0.8); Monocytes % (Auto) 5.8 % (0.0-7.3); Platelet Count 357 K/mm3 (140-440); Red Blood Count 3.27 M/mm3 (3.65-5.03); Red Cell Distribution Width 16.4 % (13.2-15.2)
[2019-07-14] MEDS: FLAGYL 500 MG/100 ML 500 MG/100 ML BAG IV SCH ×3 (06:45→21:29)
[2019-07-14 06:55] LABS: Alanine Aminotransferase 10 units/L (7-56); Albumin 3.2 g/dL (3.9-5); BUN/Creatinine Ratio 20; Blood Urea Nitrogen 8 mg/dL (7-17); Calcium 8.3 mg/dL (8.4-10.2); Hemolysis Index 6
[2019-07-14] MEDS ORDERED: ENOXAPARIN SUB-Q SCH (10:00)
--- NOTE | 2019-07-14 10:34 | Progress Note ---
Assessment and Plan Assessment and plan: 58-year-old woman who presented from correction with difficulty breathing. The patient was apparently found in respiratory distress and having cough after eating breakfast at the correction. Discharge was noted from the [facility] site, and patient was hypoxic to 80% even on supplemental oxygen, she was brought to the hospital by EMS. Diagnosis; chronic respiratory failure status post trach, hypertension, brain tumor status post resection, seizure disorder, debility pneumonia/aspiration pneumonia Continue antibiotics, speech therapy consult Acute on chronic hypoxic respiratory failure Continue supplemental oxygen Malnutrition Dietitian consult Tracheostomy dependent, continue trach care has fenestrated cap and is usually verbal at [place] Hypertension, seizure Continue home meds DVT prophylaxis with Lovenox History Interval history: Review of systems Constitutional: No fevers, generalized weakness and malaise CVS: No chest pain, no orthopnea, no pedal edema GI: No abdominal pain, no diarrhea, no vomiting, no constipation Respiratory: Continues to have nonproductive cough, and visible difficulty breathing at times, with tracheal discharge Hospitalist Physical - Physical exam Narrative exam: General.: Appears chronically ill, cachectic HEENT: Moist mucous membranes, extraocular muscles intact, no lymphadenopathy Trach noted Neck: supple Cardiac: S1-S2 heard Lungs: Crackles in both bases Abdomen: soft , nontender, nondistended, bowel sounds positive Extremities: no edema clubbing or cyanosis Skin: no rash or lesions Neurologic: no gross focal deficits Psych: calm, and cooperative - Constitutional Vitals: Temp Pulse Resp BP Pulse Ox 98.1 F 74 18 109/65 97 07/14/19 05:22 07/14/19 08:17 07/14/19 08:17 07/14/19 05:22 07/14/19 08:31 General appearance: Present: mild distress, cachectic Results - Labs CBC & Chem 7: 07/14/19 05:53 07/14/19 05:53 Labs: Laboratory Last Values WBC 5.1 K/mm3 (4.5-11.0) 07/14/19 05:53 RBC 3.27 M/mm3 (3.65-5.03) L 07/14/19 05:53 Hgb 9.5 gm/dl (10.1-14.3) L 07/14/19 05:53 Hct 28.9 % (30.3-42.9) L 07/14/19 05:53 MCV 88 fl (79-97) 07/14/19 05:53 MCH 29 pg (28-32) 07/14/19 05:53 MCHC 33 % (30-34) 07/14/19 05:53 RDW 16.4 % (13.2-15.2) H 07/14/19 05:53 Plt Count 357 K/mm3 (140-440) 07/14/19 05:53 Lymph % (Auto) 18.9 % (13.4-35.0) 07/14/19 05:53 Casey % (Auto) 5.8 % (0.0-7.3) 07/14/19 05:53 Eos % (Auto) 0.0 % (0.0-4.3) 07/14/19 05:53 Baso % (Auto) 0.2 % (0.0-1.8) 07/14/19 05:53 Lymph # 1.0 K/mm3 (1.2-5.4) L 07/14/19 05:53 Casey # 0.3 K/mm3 (0.0-0.8) 07/14/19 05:53 Eos # 0.0 K/mm3 (0.0-0.4) 07/14/19 05:53 Baso # 0.0 K/mm3 (0.0-0.1) 07/14/19 05:53 Seg Neutrophils % 75.1 % (40.0-70.0) H 07/14/19 05:53 Seg Neutrophils # 3.8 K/mm3 (1.8-7.7) 07/14/19 05:53 PT 12.4 Sec. (12.2-14.9) 07/13/19 10:26 INR 0.95 (0.87-1.13) 07/13/19 10:26 APTT 38.5 Sec. (24.2-36.6) H 07/13/19 10:26 D-Dimer 2411.46 ng/mlDDU (0-234) H 07/13/19 10:26 Sodium 134 mmol/L (137-145) L 07/14/19 05:53 Potassium 4.0 mmol/L (3.6-5.0) 07/14/19 05:53 Chloride 98.0 mmol/L (98-107) 07/14/19 05:53 Carbon Dioxide 23 mmol/L (22-30) 07/14/19 05:53 Anion Gap 17 mmol/L 07/14/19 05:53 BUN 8 mg/dL (7-17) 07/14/19 05:53 Creatinine 0.4 mg/dL (0.7-1.2) L 07/14/19 05:53 Estimated GFR > 60 ml/min 07/14/19 05:53 BUN/Creatinine Ratio 20 % 07/14/19 05:53 Glucose 93 mg/dL (65-100) 07/14/19 05:53 Lactic Acid 1.10 mmol/L (0.7-2.0) 07/13/19 10:26 Calcium 8.3 mg/dL (8.4-10.2) L 07/14/19 05:53 Total Bilirubin 0.40 mg/dL (0.1-1.2) 07/14/19 05:53 AST 15 units/L (5-40) 07/14/19 05:53 ALT 10 units/L (7-56) 07/14/19 05:53 Alkaline Phosphatase 178 units/L (35-129) H 07/14/19 05:53 Total Creatine Kinase 21 units/L (30-135) L 07/13/19 10:26 CK-MB (CK-2) < 1.0 ng/mL (0.0-4.0) 07/13/19 10:26 CK-MB (CK-2) Rel Index 4.7 (0-4) H 07/13/19 10:26 Troponin T < 0.010 ng/mL (0.00-0.029) 07/13/19 10:26 Total Protein 5.8 g/dL (6.3-8.2) L D 07/14/19 05:53 Albumin 3.2 g/dL (3.9-5) L 07/14/19 05:53 Albumin/Globulin Ratio 1.2 % 07/14/19 05:53 Urine Color Yellow (Yellow) 07/13/19 10:58 Urine Turbidity Clear (Clear) 07/13/19 10:58 Urine pH 6.0 (5.0-7.0) 07/13/19 10:58 Ur Specific [place] 1.017 (1.003-1.030) 07/13/19 10:58 Urine Protein 100 mg/dl mg/dL (Negative) 07/13/19 10:58 Urine Glucose (UA) Neg mg/dL (Negative) 07/13/19 10:58 Urine Ketones Neg mg/dL (Negative) 07/13/19 10:58 Urine Blood Sm (Negative) 07/13/19 10:58 Urine Nitrite Neg (Negative) 07/13/19 10:58 Urine Bilirubin Neg (Negative) 07/13/19 10:58 Urine Urobilinogen < 2.0 mg/dL (<2.0) 07/13/19 10:58 Ur Leukocyte Esterase Neg (Negative) 07/13/19 10:58 Urine WBC (Auto) 7.0 /HPF (0.0-6.0) H 07/13/19 10:58 Urine RBC (Auto) 10.0 /HPF (0.0-6.0) 07/13/19 10:58 U Epithel Cells (Auto) < 1.0 /HPF (0-13.0) 07/13/19 10:58 Urine Mucus Few /HPF 07/13/19 10:58 Active Medications - Current Medications Current Medications: Generic Name Dose Route Start Last Admin Trade Name Freq PRN Reason Stop Dose Admin Acetaminophen 650 mg 07/13/19 20:00 07/14/19 02:43 Tylenol PO Not Given Q6H ROSE Albuterol 2.5 mg 07/13/19 13:10 Proventil IH Q3HRT PRN Shortness Of Breath Albuterol/Ipratropium 1 ampul 07/13/19 20:00 07/14/19 08:17 Duoneb *Not For Prn Use* IH 1 ampul Q6HRT ROSE Administration Enoxaparin Sodium 40 mg 07/14/19 10:00 Lovenox SUB-Q QDAY@1000 ROSE Escitalopram Oxalate 10 mg 07/14/19 10:00 Lexapro PO DAILY ROSE Famotidine 20 mg 07/14/19 10:00 Pepcid PO QDAY ROSE Metronidazole 500 mg in 100 mls @ 100 mls/hr 07/13/19 22:00 07/14/19 06:45 Flagyl 500 Mg/100 Ml IV 100 mls/hr Q8H ROSE Administration Protocol Levetiracetam 1,000 mg 07/13/19 22:00 07/13/19 22:49 Keppra PO 1,000 mg BID ROSE Administration Metoprolol Tartrate 25 mg 07/13/19 22:00 07/13/19 22:53 Lopressor PO 25 mg BID ROSE Administration Ondansetron HCl 4 mg 07/13/19 20:08 Zofran Odt PO Q6H PRN Nausea And Vomiting Pneumococcal Polyvalent Vaccine 0.5 ml 07/14/19 12:00 Pneumovax 23 IM 07/14/19 12:01 .ONCE ONE Sodium Chloride 10 ml 07/13/19 22:00 07/13/19 22:50 Sodium Chloride Flush Syringe 10 Ml IV 10 ml BID ROSE Administration Sodium Chloride 10 ml 07/13/19 13:10 Sodium Chloride Flush Syringe 10 Ml IV PRN PRN LINE FLUSH Sodium Chloride 1 gm 07/14/19 07:30 Sodium Chloride PO AC ROSE Tramadol HCl 50 mg 07/13/19 22:00 07/13/19 22:48 Ultram PO 50 mg BID ROSE Administration
[2019-07-14] MEDS ORDERED: VANCOMYCIN PHARMACY TO DOSE IV SCH (11:00)
[2019-07-14] MEDS: LEXAPRO PO SCH (11:20)
[2019-07-14] MEDS: SODIUM CHLORIDE PO SCH ×3 (11:20→16:20)
[2019-07-14] MEDS: PEPCID PO SCH (11:20)
[2019-07-14] MEDS: KEPPRA PO SCH ×2 (11:20→21:28)
[2019-07-14] MEDS: ENOXAPARIN SUB-Q SCH (11:21)
[2019-07-14] MEDS: METOPROLOL PO SCH ×2 (11:21→21:30)
[2019-07-14] MEDS: ULTRAM PO SCH ×2 (11:26→21:28)
[2019-07-14] MEDS: SODIUM CHLORIDE FLUSH SYRINGE 10 ML IV SCH ×2 (11:40→21:34)
[2019-07-14] MEDS ORDERED: AFLURIA QUAD 2019-2020 (3YR UP) IM ONE (12:00)
[2019-07-14] MEDS ORDERED: PNEUMOVAX 23 IM ONE (12:00)
[2019-07-14] MEDS: AZACTAM/NS 1 GM/50 ML 1 GM/50 ML VIAL IV SCH ×2 (12:47→18:34)
[2019-07-14] MEDS: VANCOMYCIN 750 MG in NACL 0.9% 250ML 250 ML IV SCH (13:35)
--- NOTE | 2019-07-14 13:58 | Consultation ---
History of Present Illness - Reason for Consult Consult date: 07/14/19 Pneumonia, sepsis Requesting physician: CARLY TRUJILLO - History of Present Illness The patient is a 58 y/o female with history of COPD, chronic respiratory failure s/p trach, dementia, hypertension, who was recently admitted on 06/28/2019 due to be found in respiratory distress at her [facility] and low sats in the 50s, procal came back normal so she received a short course of abx and was d/sebastian back. [place] due to respiratory distress, hypoxia and cough following breakfast, also noted to have drainage from trach site. Admitted here, started on empiric abx. Confused at baseline. Appears comfortable. No fever. Review of Systems: No fever. But ROS not reliable due to dementia. Past History Past Medical History: hypertension, seizures, other (see hpi) Past Surgical History: Other (Trach placement, brain surgery) Social history: . denies: smoking, alcohol abuse, prescription drug abuse Family history: no significant family history (reviewed) Medications and Allergies Allergies Allergy/AdvReac Type Severity Reaction Status Date / Time amoxicillin [From Augmentin] Allergy Anaphylaxis Verified 06/28/19 07:17 cefdinir [From Omnicef] Allergy Anaphylaxis Verified 06/28/19 07:17 cephalexin [From Keflex] Allergy Anaphylaxis Verified 06/28/19 07:17 clarithromycin Allergy Anaphylaxis Verified 06/28/19 07:17 clavulanic acid Allergy Anaphylaxis Verified 06/28/19 07:17 [From Augmentin] doxycycline Allergy Anaphylaxis Verified 06/28/19 07:17 levofloxacin [From Levaquin] Allergy Anaphylaxis Verified 06/28/19 07:17 Sulfa (Sulfonamide Allergy Anaphylaxis Verified 06/28/19 07:17 Antibiotics) Home Medications Medication Instructions Recorded Confirmed Last Taken Type Acetaminophen [Acetaminophen TAB] 650 mg PO Q6H 06/28/19 07/13/19 07/12/19 History Escitalopram [Lexapro] 10 mg PO DAILY 06/28/19 07/13/19 07/12/19 History Ipratropium/Albuterol Sulfate 1 ampul IH Q6HR 06/28/19 07/13/19 07/12/19 History [DUONEB *Not for PRN Use*] Metoprolol [Lopressor TAB] 25 mg PO BID 06/28/19 07/13/19 07/12/19 History Ondansetron [Zofran TAB] 4 mg PO Q6HR PRN 06/28/19 07/13/19 07/12/19 History Sodium Chloride 1 gm PO AC 06/28/19 07/13/19 07/12/19 History levETIRAcetam [Keppra TAB] 1,000 mg PO BID 06/28/19 07/13/19 07/12/19 History traMADol [Ultram 50 MG tab] 50 mg PO BID 06/28/19 07/13/19 07/12/19 History Famotidine [Pepcid] 20 mg PO QDAY tablet 07/04/19 07/13/19 07/12/19 Rx Active Meds: Active Medications Acetaminophen (Tylenol) 650 mg PO Q6H [facility] Last Admin: 07/14/19 11:40 Dose: Not Given Documented by: Albuterol (Proventil) 2.5 mg IH Q3HRT PRN PRN Reason: Shortness Of Breath Albuterol/Ipratropium (Duoneb *Not For Prn Use*) 1 ampul IH Q6HRT [facility] Last Admin: 07/14/19 08:17 Dose: 1 ampul Documented by: Enoxaparin Sodium (Lovenox) 40 mg SUB-Q QDAY@1000 [facility] Last Admin: 07/14/19 11:21 Dose: 40 mg Documented by: Escitalopram Oxalate (Lexapro) 10 mg PO DAILY [facility] Last Admin: 07/14/19 11:20 Dose: 10 mg Documented by: Famotidine (Pepcid) 20 mg PO QDAY [facility] Last Admin: 07/14/19 11:20 Dose: 20 mg Documented by: Metronidazole (Flagyl 500 Mg/100 Ml) 500 mg in 100 mls @ 100 mls/hr IV Q8H [facility]; Protocol Last Admin: 07/14/19 06:45 Dose: 100 mls/hr Documented by: Aztreonam (Azactam/Ns 1 Gm/50 Ml) 1 gm in 50 mls @ 50 mls/hr IV Q6HR [facility]; Protocol Last Admin: 07/14/19 12:47 Dose: 50 mls/hr Documented by: Vancomycin HCl 750 mg/ Sodium (Chloride) 265 mls @ 166.667 mls/hr IV Q12H [facility] Last Admin: 07/14/19 13:35 Dose: 166.667 mls/hr Documented by: Levetiracetam (Keppra) 1,000 mg PO BID [facility] Last Admin: 07/14/19 11:20 Dose: 1,000 mg Documented by: Metoprolol Tartrate (Lopressor) 25 mg PO BID [facility] Last Admin: 07/14/19 11:21 Dose: 25 mg Documented by: Ondansetron HCl (Zofran Odt) 4 mg PO Q6H PRN PRN Reason: Nausea And Vomiting Sodium Chloride (Sodium Chloride Flush Syringe 10 Ml) 10 ml IV BID [facility] Last Admin: 07/14/19 11:40 Dose: 10 ml Documented by: Sodium Chloride (Sodium Chloride Flush Syringe 10 Ml) 10 ml IV PRN PRN PRN Reason: LINE FLUSH Sodium Chloride (Sodium Chloride) 1 gm PO AC [facility] Last Admin: 07/14/19 13:35 Dose: Not Given Documented by: Tramadol HCl (Ultram) 50 mg PO BID [facility] Last Admin: 07/14/19 11:26 Dose: 50 mg Documented by: Physical Examination - Physical Exam Narrative exam: Physical Exam: Constitutional: awake, alert, no distress. Cachexia Head, Ears, Nose: Normocephalic, atraumatic. External ears, nose normal Eyes: Conjunctivae/corneas clear. No icterus. No ptosis. Neck: trach + Oral: unable to examine Cardiovascular: S1, S2 normal. Respiratory: b/l rhonchi GI: Soft, non-tender; bowel sounds normal. No peritoneal signs Musculoskeletal: No pedal edema, no cyanosis. Skin: No rash or abscess Hem/Lymphatic: No palpable cervical or supraclavicular nodes. No lymphangitis Psych: pleasant mood, no agitation Neurological: Awake, alert, confused at baseline. - Constitutional Vitals: Vital Signs Temp Pulse Resp BP Pulse Ox 98.5 F 76 20 139/67 99 07/14/19 11:49 07/14/19 11:49 07/14/19 11:49 07/14/19 11:49 07/14/19 11:49 Temperature -Last 24 Hours Temperature 98.5 F Temperature 98.1 F Temperature 97.9 F Temperature 98.6 F Results - Labs CBC & Chem 7: 07/14/19 05:53 07/14/19 05:53 Labs: Abnormal lab results 07/14/19 07/14/19 Range/Units 05:53 05:53 RBC 3.27 L (3.65-5.03) M/mm3 Hgb 9.5 L (10.1-14.3) gm/dl Hct 28.9 L (30.3-42.9) % RDW 16.4 H (13.2-15.2) % Lymph # 1.0 L (1.2-5.4) K/mm3 Seg Neutrophils % 75.1 H (40.0-70.0) % Sodium 134 L (137-145) mmol/L Creatinine 0.4 L (0.7-1.2) mg/dL Calcium 8.3 L (8.4-10.2) mg/dL Alkaline Phosphatase 178 H (35-129) units/L Total Protein 5.8 L D (6.3-8.2) g/dL Albumin 3.2 L (3.9-5) g/dL - Imaging and Cardiology Chest x-ray: report reviewed, image reviewed (LLL pneumonia) CT scan - chest: report reviewed, image reviewed (b/l lower lobe infiltrates, L >> R) Assessment and Plan Cultures: 07/13/2019 blood culture: No growth 07/13/2019 urine culture: No significant growth 07/14/2019 blood culture: In progress A/P: 58 y/o female with history of COPD, chronic respiratory failure s/p trach, dementia, hypertension, who was recently admitted on 06/28/2019 due to be found in respiratory distress at her [facility] and low sats in the 50s, procal came back normal so she received a short course of abx and was d/sebastian back. Now readmitted: 1) Bilateral pneumonia, left worse compared to right, likely secondary to aspiration pneumonia: noted on CT and CXR with lung infiltrates. Also history concerning for aspiration. 2) Acute on chronic respiratory failure: Status post tracheostomy. 3) Malnutrition 4) Multiple antibiotic allergies: Cannot confirm the allergies given her base line dementia and confusion. Recs: Tracheal aspirate ordered for culture, d/w RN Given multiple allergies, treat empirically with aztreonam, Flagyl and vancomycin Nasal MRSA PCR ordered Procalcitonin ordered Swallow becky Jolly MD, FACP [facility] ([facility] C: [phone] O: [phone] F: [phone]
[2019-07-14] MEDS ORDERED: HALDOL IM ONE (20:33)
[2019-07-15] MEDS: VANCOMYCIN 750 MG in NACL 0.9% 250ML 250 ML IV SCH ×2 (00:12→12:45)
[2019-07-15] MEDS: AZACTAM/NS 1 GM/50 ML 1 GM/50 ML VIAL IV SCH ×4 (00:12→17:21)
[2019-07-15] MEDS: DUONEB *Not for PRN Use IH SCH ×4 (02:43→19:47)
[2019-07-15] MEDS: TYLENOL PO SCH ×4 (04:22→21:54)
[2019-07-15] MEDS: FLAGYL 500 MG/100 ML 500 MG/100 ML BAG IV SCH ×3 (05:33→21:54)
[2019-07-15] MEDS: SODIUM CHLORIDE PO SCH ×3 (09:16→17:33)
[2019-07-15] MEDS: ULTRAM PO SCH ×2 (10:30→21:53)
[2019-07-15] MEDS: METOPROLOL PO SCH ×2 (10:30→22:04)
[2019-07-15] MEDS: ENOXAPARIN SUB-Q SCH (10:30)
[2019-07-15] MEDS: PEPCID PO SCH (10:30)
[2019-07-15] MEDS: KEPPRA PO SCH ×2 (10:30→21:52)
[2019-07-15] MEDS: SODIUM CHLORIDE FLUSH SYRINGE 10 ML IV SCH ×2 (10:30→21:55)
[2019-07-15] MEDS: LEXAPRO PO SCH (10:30)
[2019-07-15] MEDS ORDERED: AFLURIA QUAD 2019-2020 (3YR UP) IM ONE (12:00)
[2019-07-15] MEDS ORDERED: PNEUMOVAX 23 IM ONE (12:00)
--- NOTE | 2019-07-15 13:28 | Progress Note ---
Assessment and Plan Assessment and plan: 58-year-old woman who presented from [facility] with difficulty breathing. The patient was apparently found in respiratory distress and having cough after eating breakfast at the detention. Discharge was noted from the trach site, and patient was hypoxic to 80% even on supplemental oxygen, she was brought to the hospital by EMS. Diagnosis; chronic respiratory failure status post trach, hypertension, brain tumor status post resection, seizure disorder, debility pneumonia/aspiration pneumonia Continue antibiotics, speech therapy consult Acute on chronic hypoxic respiratory failure Continue supplemental oxygen Malnutrition Dietitian consult Tracheostomy dependent, continue trach care has fenestrated cap and is verbal Hypertension, seizure Continue home meds DVT prophylaxis with Lovenox History Interval history: Review of systems Constitutional: No fevers, generalized weakness and malaise CVS: No chest pain, no orthopnea, no pedal edema GI: No abdominal pain, no diarrhea, no vomiting, no constipation Respiratory: Continues to have nonproductive cough, with tracheal discharge, no sob Hospitalist Physical - Physical exam Narrative exam: General.: Appears chronically ill, cachectic HEENT: Moist mucous membranes, extraocular muscles intact, no lymphadenopathy Trach noted Neck: supple Cardiac: S1-S2 heard Lungs: Crackles in both bases Abdomen: soft , nontender, nondistended, bowel sounds positive Extremities: no edema clubbing or cyanosis Skin: no rash or lesions Neurologic: no gross focal deficits Psych: calm, and cooperative - Constitutional Vitals: Temp Pulse Resp BP Pulse Ox 98.1 F 81 18 121/74 99 07/15/19 11:38 07/15/19 10:30 07/15/19 11:38 07/15/19 10:30 07/15/19 08:39 General appearance: Present: mild distress, cachectic Results - Labs CBC & Chem 7: 07/14/19 05:53 07/14/19 05:53 Labs: Laboratory Last Values WBC 5.1 K/mm3 (4.5-11.0) 07/14/19 05:53 RBC 3.27 M/mm3 (3.65-5.03) L 07/14/19 05:53 Hgb 9.5 gm/dl (10.1-14.3) L 07/14/19 05:53 Hct 28.9 % (30.3-42.9) L 07/14/19 05:53 MCV 88 fl (79-97) 07/14/19 05:53 MCH 29 pg (28-32) 07/14/19 05:53 MCHC 33 % (30-34) 07/14/19 05:53 RDW 16.4 % (13.2-15.2) H 07/14/19 05:53 Plt Count 357 K/mm3 (140-440) 07/14/19 05:53 Lymph % (Auto) 18.9 % (13.4-35.0) 07/14/19 05:53 Reagan % (Auto) 5.8 % (0.0-7.3) 07/14/19 05:53 Eos % (Auto) 0.0 % (0.0-4.3) 07/14/19 05:53 Baso % (Auto) 0.2 % (0.0-1.8) 07/14/19 05:53 Lymph # 1.0 K/mm3 (1.2-5.4) L 07/14/19 05:53 Reagan # 0.3 K/mm3 (0.0-0.8) 07/14/19 05:53 Eos # 0.0 K/mm3 (0.0-0.4) 07/14/19 05:53 Baso # 0.0 K/mm3 (0.0-0.1) 07/14/19 05:53 Seg Neutrophils % 75.1 % (40.0-70.0) H 07/14/19 05:53 Seg Neutrophils # 3.8 K/mm3 (1.8-7.7) 07/14/19 05:53 PT 12.4 Sec. (12.2-14.9) 07/13/19 10:26 INR 0.95 (0.87-1.13) 07/13/19 10:26 APTT 38.5 Sec. (24.2-36.6) H 07/13/19 10:26 D-Dimer 2411.46 ng/mlDDU (0-234) H 07/13/19 10:26 Sodium 134 mmol/L (137-145) L 07/14/19 05:53 Potassium 4.0 mmol/L (3.6-5.0) 07/14/19 05:53 Chloride 98.0 mmol/L (98-107) 07/14/19 05:53 Carbon Dioxide 23 mmol/L (22-30) 07/14/19 05:53 Anion Gap 17 mmol/L 07/14/19 05:53 BUN 8 mg/dL (7-17) 07/14/19 05:53 Creatinine 0.4 mg/dL (0.7-1.2) L 07/14/19 05:53 Estimated GFR > 60 ml/min 07/14/19 05:53 BUN/Creatinine Ratio 20 % 07/14/19 05:53 Glucose 93 mg/dL (65-100) 07/14/19 05:53 Lactic Acid 1.10 mmol/L (0.7-2.0) 07/13/19 10:26 Calcium 8.3 mg/dL (8.4-10.2) L 07/14/19 05:53 Total Bilirubin 0.40 mg/dL (0.1-1.2) 07/14/19 05:53 AST 15 units/L (5-40) 07/14/19 05:53 ALT 10 units/L (7-56) 07/14/19 05:53 Alkaline Phosphatase 178 units/L (35-129) H 07/14/19 05:53 Total Creatine Kinase 21 units/L (30-135) L 07/13/19 10:26 CK-MB (CK-2) < 1.0 ng/mL (0.0-4.0) 07/13/19 10:26 CK-MB (CK-2) Rel Index 4.7 (0-4) H 07/13/19 10:26 Troponin T < 0.010 ng/mL (0.00-0.029) 07/13/19 10:26 Total Protein 5.8 g/dL (6.3-8.2) L D 07/14/19 05:53 Albumin 3.2 g/dL (3.9-5) L 07/14/19 05:53 Albumin/Globulin Ratio 1.2 % 07/14/19 05:53 Procalcitonin 1.12 ng/mL (<0.15) 07/15/19 04:37 Urine Color Yellow (Yellow) 07/13/19 10:58 Urine Turbidity Clear (Clear) 07/13/19 10:58 Urine pH 6.0 (5.0-7.0) 07/13/19 10:58 Ur Specific [place] 1.017 (1.003-1.030) 07/13/19 10:58 Urine Protein 100 mg/dl mg/dL (Negative) 07/13/19 10:58 Urine Glucose (UA) Neg mg/dL (Negative) 07/13/19 10:58 Urine Ketones Neg mg/dL (Negative) 07/13/19 10:58 Urine Blood Sm (Negative) 07/13/19 10:58 Urine Nitrite Neg (Negative) 07/13/19 10:58 Urine Bilirubin Neg (Negative) 07/13/19 10:58 Urine Urobilinogen < 2.0 mg/dL (<2.0) 07/13/19 10:58 Ur Leukocyte Esterase Neg (Negative) 07/13/19 10:58 Urine WBC (Auto) 7.0 /HPF (0.0-6.0) H 07/13/19 10:58 Urine RBC (Auto) 10.0 /HPF (0.0-6.0) 07/13/19 10:58 U Epithel Cells (Auto) < 1.0 /HPF (0-13.0) 07/13/19 10:58 Urine Mucus Few /HPF 07/13/19 10:58 Active Medications - Current Medications Current Medications: Generic Name Dose Route Start Last Admin Trade Name Freq PRN Reason Stop Dose Admin Acetaminophen 650 mg 07/13/19 20:00 07/15/19 09:16 Tylenol PO Not Given Q6H ROSE Albuterol 2.5 mg 07/13/19 13:10 Proventil IH Q3HRT PRN Shortness Of Breath Albuterol/Ipratropium 1 ampul 07/13/19 20:00 07/15/19 08:17 Duoneb *Not For Prn Use* IH 1 ampul Q6HRT ROSE Administration Enoxaparin Sodium 40 mg 07/14/19 10:00 07/15/19 10:30 Lovenox SUB-Q 40 mg QDAY@1000 ROSE Administration Escitalopram Oxalate 10 mg 07/14/19 10:00 07/15/19 10:30 Lexapro PO 10 mg DAILY ROSE Administration Famotidine 20 mg 07/14/19 10:00 07/15/19 10:30 Pepcid PO 20 mg QDAY ROSE Administration Metronidazole 500 mg in 100 mls @ 100 mls/hr 07/13/19 22:00 07/15/19 05:33 Flagyl 500 Mg/100 Ml IV 100 mls/hr Q8H ROSE Administration Protocol Aztreonam 1 gm in 50 mls @ 50 mls/hr 07/14/19 12:00 07/15/19 12:30 Azactam/Ns 1 Gm/50 Ml IV 50 mls/hr Q6HR ROSE Administration Protocol Vancomycin HCl 750 mg/ Sodium 265 mls @ 166.667 mls/hr 07/14/19 12:00 07/15/19 12:45 Chloride IV 166.667 mls/hr Q12H ROSE Administration Levetiracetam 1,000 mg 07/13/19 22:00 07/15/19 10:30 Keppra PO 1,000 mg BID ROSE Administration Metoprolol Tartrate 25 mg 07/13/19 22:00 07/15/19 10:30 Lopressor PO 25 mg BID ROSE Administration Ondansetron HCl 4 mg 07/13/19 20:08 Zofran Odt PO Q6H PRN Nausea And Vomiting Sodium Chloride 10 ml 07/13/19 22:00 07/15/19 10:30 Sodium Chloride Flush Syringe 10 Ml IV 10 ml BID ROSE Administration Sodium Chloride 10 ml 07/13/19 13:10 Sodium Chloride Flush Syringe 10 Ml IV PRN PRN LINE FLUSH Sodium Chloride 1 gm 07/14/19 07:30 07/15/19 10:30 Sodium Chloride PO 1 gm AC ROSE Administration Tramadol HCl 50 mg 07/13/19 22:00 07/15/19 10:30 Ultram PO 50 mg BID ROSE Administration Nutrition/Malnutrition Assess - Dietary Evaluation Nutrition/Malnutrition Findings: Nutrition Notes Start: 07/14/19 11:13 Freq: Status: Active Protocol: Document 07/14/19 11:13 CASIMIRO (Rec: 07/14/19 11:28 [email or web address]) Nutrition Notes Need for Assessment generated from: MD Order Initial or Follow up Assessment Current Diagnosis COPD,Hypertension Other Pertinent Diagnosis s/p trach placement, h/o brain cancer s/p resection Current Diet NPO Labs/Tests Na: 134 Cr: 0.4 Pertinent Medications Reviewed Height 5 ft 4 in Weight 46.6 kg [place] Body Weight (kg) 54.54 BMI 17.6 Subjective/Other Information Pt consulted for malnutrition. Pt from SNF ([facility] Pt has trach and was unable to speak to RD. RD attempted to communicate with pt via paper and pencil located on bedside table, but pt still unable to answer questions regarding PO intakes [employer] and recent weight changes . RD observed severe protein and fat wasting. Per progress note, pt awaiting [employer] consult. Burn Absent Trauma Absent Minimum of two criteria Yes Body Fat Depletion Moderate depletion (severe) Muscle Mass Moderate Depletion (severe) #1 Nutrition Diagnosis Malnutrition Etiology COPD s/p trach placement As Evidenced by Signs and Symptoms Moderate depletion of both muscle mass and body fat tissues Is patient on ventilator? No Is Patient Ambulatory and/or Out of Bed No REE-([facility]-confined to bed) 1242.204 Kcal/Kg value to use for calculation 34 Approximate Energy Requirements Using 1584 kcal/Kg Calculation Used for Recommendations Kcal/kg Additional Notes Pro needs: 56-70g/day (1.2-1.5 g/kg BW) Fluid needs: 1 ml/kcal Nutrition Intervention Change Diet Order: Advance diet when medically feasible Nutrition Support: TF consult if diet cannot be advanced Goal #1 Diet advancement when medically feasible Goal #2 TF consult if diet cannot be advanced Anticipated Discharge Needs: Unknown at this time Follow-Up By: 07/18/19 Additional Comments F/u for [employer] consult results, diet advancement
--- NOTE | 2019-07-15 13:56 | Progress Note ---
Assessment and Plan Cultures: 07/13/2019 blood culture: No growth 07/13/2019 urine culture: No significant growth 07/14/2019 blood culture: no growth A/P: 58 y/o female with history of COPD, chronic respiratory failure s/p trach, dementia, hypertension, who was recently admitted on 06/28/2019 due to be found in respiratory distress at her correction and low sats in the 50s, procal came back normal so she received a short course of abx and was d/sebastian back. Now readmitted: 1) Bilateral pneumonia, left worse compared to right, likely secondary to aspiration pneumonia: noted on CT and CXR with lung infiltrates. Also history concerning for aspiration at [place]. Procalcitonin is high: 1.12. 2) Acute on chronic respiratory failure: Status post tracheostomy. 3) Malnutrition 4) Multiple antibiotic allergies: Cannot confirm the allergies given her baseline dementia and confusion. Recs: f/u tracheal aspirate culture Given multiple allergies, continue to treat empirically with aztreonam, Flagyl and vancomycin f/u Nasal MRSA PCR, if negative, can d/c Vancomycin f/u swallow eval Dr. Flores covering this weekend. Mary Anne Jolly MD, FACP [facility] ([facility] C: [phone] O: [phone] F: [phone] Subjective Date of service: 07/15/19 Interval history: No fever. No distress. On T-piece. Objective - Exam Narrative Exam: Physical Exam: Constitutional: awake, alert, no distress. Cachexia Head, Ears, Nose: Normocephalic, atraumatic. External ears, nose normal Eyes: Conjunctivae/corneas clear. No icterus. No ptosis. Neck: trach + Oral: unable to examine Cardiovascular: S1, S2 normal. Respiratory: clear b/l, no wheeze or rhonchi GI: Soft, non-tender; bowel sounds normal. No peritoneal signs Musculoskeletal: No pedal edema, no cyanosis. Skin: No rash or abscess Hem/Lymphatic: No palpable cervical or supraclavicular nodes. No lymphangitis Psych: pleasant mood, no agitation Neurological: Awake, alert, confused at baseline. - Constitutional Vitals: Vital Signs Temp Pulse Resp BP Pulse Ox 98.1 F 81 18 121/74 99 07/15/19 11:38 07/15/19 10:30 07/15/19 11:38 07/15/19 10:30 07/15/19 08:39 Temperature -Last 24 Hours Temperature 98.1 F Temperature 97.5 F Temperature 97.6 F - Labs CBC & Chem 7: 07/14/19 05:53 07/14/19 05:53
[2019-07-16] MEDS: VANCOMYCIN 750 MG in NACL 0.9% 250ML 250 ML IV SCH ×3 (00:57→23:27)
[2019-07-16] MEDS: AZACTAM/NS 1 GM/50 ML 1 GM/50 ML VIAL IV SCH ×5 (00:59→23:27)
[2019-07-16] MEDS: DUONEB *Not for PRN Use IH SCH ×4 (03:34→21:29)
[2019-07-16] MEDS: TYLENOL PO SCH ×4 (04:33→23:39)
[2019-07-16] MEDS: FLAGYL 500 MG/100 ML 500 MG/100 ML BAG IV SCH ×3 (06:11→23:42)
[2019-07-16] MEDS: SODIUM CHLORIDE PO SCH ×3 (07:30→17:01)
--- NOTE | 2019-07-16 07:41 | Progress Note ---
Assessment and Plan Assessment and plan: 58-year-old woman who presented from correction with difficulty breathing. The patient was apparently found in respiratory distress and having cough after eating breakfast at the correction. Discharge was noted from the trach site, and patient was hypoxic to 80% even on supplemental oxygen, she was brought to the hospital by EMS. Diagnosis; chronic respiratory failure status post trach, hypertension, brain tumor status post resection, seizure disorder, debility pneumonia/aspiration pneumonia Continue antibiotics, speech therapy consult Acute on chronic hypoxic respiratory failure Continue supplemental oxygen Malnutrition Dietitian consult Tracheostomy dependent, continue trach care has fenestrated cap and is verbal Hypertension, seizure Continue home meds DVT prophylaxis with Lovenox History Interval history: Review of systems Constitutional: No fevers, generalized weakness and malaise CVS: No chest pain, no orthopnea, no pedal edema GI: No abdominal pain, no diarrhea, no vomiting, no constipation Respiratory: Continues to have nonproductive cough, with tracheal discharge, no sob Hospitalist Physical - Physical exam Narrative exam: General.: Appears chronically ill, cachectic HEENT: Moist mucous membranes, extraocular muscles intact, no lymphadenopathy Trach noted Neck: supple Cardiac: S1-S2 heard Lungs: Crackles in both bases Abdomen: soft , nontender, nondistended, bowel sounds positive Extremities: no edema clubbing or cyanosis Skin: no rash or lesions Neurologic: no gross focal deficits Psych: calm, and cooperative - Constitutional Vitals: Temp Pulse Resp BP Pulse Ox 97.4 F L 71 18 118/81 98 07/16/19 04:30 07/16/19 04:30 07/16/19 04:30 07/16/19 04:30 07/16/19 04:36 General appearance: Present: mild distress, cachectic Results - Labs CBC & Chem 7: 07/14/19 05:53 07/14/19 05:53 Labs: Laboratory Last Values WBC 5.1 K/mm3 (4.5-11.0) 07/14/19 05:53 RBC 3.27 M/mm3 (3.65-5.03) L 07/14/19 05:53 Hgb 9.5 gm/dl (10.1-14.3) L 07/14/19 05:53 Hct 28.9 % (30.3-42.9) L 07/14/19 05:53 MCV 88 fl (79-97) 07/14/19 05:53 MCH 29 pg (28-32) 07/14/19 05:53 MCHC 33 % (30-34) 07/14/19 05:53 RDW 16.4 % (13.2-15.2) H 07/14/19 05:53 Plt Count 357 K/mm3 (140-440) 07/14/19 05:53 Lymph % (Auto) 18.9 % (13.4-35.0) 07/14/19 05:53 [place] % (Auto) 5.8 % (0.0-7.3) 07/14/19 05:53 Eos % (Auto) 0.0 % (0.0-4.3) 07/14/19 05:53 Baso % (Auto) 0.2 % (0.0-1.8) 07/14/19 05:53 Lymph # 1.0 K/mm3 (1.2-5.4) L 07/14/19 05:53 [place] # 0.3 K/mm3 (0.0-0.8) 07/14/19 05:53 Eos # 0.0 K/mm3 (0.0-0.4) 07/14/19 05:53 Baso # 0.0 K/mm3 (0.0-0.1) 07/14/19 05:53 Seg Neutrophils % 75.1 % (40.0-70.0) H 07/14/19 05:53 Seg Neutrophils # 3.8 K/mm3 (1.8-7.7) 07/14/19 05:53 PT 12.4 Sec. (12.2-14.9) 07/13/19 10:26 INR 0.95 (0.87-1.13) 07/13/19 10:26 APTT 38.5 Sec. (24.2-36.6) H 07/13/19 10:26 D-Dimer 2411.46 ng/mlDDU (0-234) H 07/13/19 10:26 Sodium 134 mmol/L (137-145) L 07/14/19 05:53 Potassium 4.0 mmol/L (3.6-5.0) 07/14/19 05:53 Chloride 98.0 mmol/L (98-107) 07/14/19 05:53 Carbon Dioxide 23 mmol/L (22-30) 07/14/19 05:53 Anion Gap 17 mmol/L 07/14/19 05:53 BUN 8 mg/dL (7-17) 07/14/19 05:53 Creatinine 0.4 mg/dL (0.7-1.2) L 07/14/19 05:53 Estimated GFR > 60 ml/min 07/14/19 05:53 BUN/Creatinine Ratio 20 % 07/14/19 05:53 Glucose 93 mg/dL (65-100) 07/14/19 05:53 Lactic Acid 1.10 mmol/L (0.7-2.0) 07/13/19 10:26 Calcium 8.3 mg/dL (8.4-10.2) L 07/14/19 05:53 Total Bilirubin 0.40 mg/dL (0.1-1.2) 07/14/19 05:53 AST 15 units/L (5-40) 07/14/19 05:53 ALT 10 units/L (7-56) 07/14/19 05:53 Alkaline Phosphatase 178 units/L (35-129) H 07/14/19 05:53 Total Creatine Kinase 21 units/L (30-135) L 07/13/19 10:26 CK-MB (CK-2) < 1.0 ng/mL (0.0-4.0) 07/13/19 10:26 CK-MB (CK-2) Rel Index 4.7 (0-4) H 07/13/19 10:26 Troponin T < 0.010 ng/mL (0.00-0.029) 07/13/19 10:26 Total Protein 5.8 g/dL (6.3-8.2) L D 07/14/19 05:53 Albumin 3.2 g/dL (3.9-5) L 07/14/19 05:53 Albumin/Globulin Ratio 1.2 % 07/14/19 05:53 Procalcitonin 1.12 ng/mL (<0.15) 07/15/19 04:37 Urine Color Yellow (Yellow) 07/13/19 10:58 Urine Turbidity Clear (Clear) 07/13/19 10:58 Urine pH 6.0 (5.0-7.0) 07/13/19 10:58 Ur Specific [place] 1.017 (1.003-1.030) 07/13/19 10:58 Urine Protein 100 mg/dl mg/dL (Negative) 07/13/19 10:58 Urine Glucose (UA) Neg mg/dL (Negative) 07/13/19 10:58 Urine Ketones Neg mg/dL (Negative) 07/13/19 10:58 Urine Blood Sm (Negative) 07/13/19 10:58 Urine Nitrite Neg (Negative) 07/13/19 10:58 Urine Bilirubin Neg (Negative) 07/13/19 10:58 Urine Urobilinogen < 2.0 mg/dL (<2.0) 07/13/19 10:58 Ur Leukocyte Esterase Neg (Negative) 07/13/19 10:58 Urine WBC (Auto) 7.0 /HPF (0.0-6.0) H 07/13/19 10:58 Urine RBC (Auto) 10.0 /HPF (0.0-6.0) 07/13/19 10:58 U Epithel Cells (Auto) < 1.0 /HPF (0-13.0) 07/13/19 10:58 Urine Mucus Few /HPF 07/13/19 10:58 Active Medications - Current Medications Current Medications: Generic Name Dose Route Start Last Admin Trade Name Freq PRN Reason Stop Dose Admin Acetaminophen 650 mg 07/13/19 20:00 07/16/19 04:33 Tylenol PO Not Given Q6H ROSE Albuterol 2.5 mg 07/13/19 13:10 Proventil IH Q3HRT PRN Shortness Of Breath Albuterol/Ipratropium 1 ampul 07/16/19 08:00 Duoneb *Not For Prn Use* IH TIDRT ROSE Enoxaparin Sodium 40 mg 07/14/19 10:00 07/15/19 10:30 Lovenox SUB-Q 40 mg QDAY@1000 ROSE Administration Escitalopram Oxalate 10 mg 07/14/19 10:00 07/15/19 10:30 Lexapro PO 10 mg DAILY ROSE Administration Famotidine 20 mg 07/14/19 10:00 07/15/19 10:30 Pepcid PO 20 mg QDAY ROSE Administration Metronidazole 500 mg in 100 mls @ 100 mls/hr 07/13/19 22:00 07/16/19 06:11 Flagyl 500 Mg/100 Ml IV 100 mls/hr Q8H ROSE Administration Protocol Aztreonam 1 gm in 50 mls @ 50 mls/hr 07/14/19 12:00 07/16/19 06:02 Azactam/Ns 1 Gm/50 Ml IV 50 mls/hr Q6HR ROSE Administration Protocol Vancomycin HCl 750 mg/ Sodium 265 mls @ 166.667 mls/hr 07/14/19 12:00 07/16/19 00:57 Chloride IV 166.667 mls/hr Q12H ROSE Administration Levetiracetam 1,000 mg 07/13/19 22:00 07/15/19 21:52 Keppra PO 1,000 mg BID ROSE Administration Metoprolol Tartrate 25 mg 07/13/19 22:00 07/15/19 22:04 Lopressor PO 25 mg BID ROSE Administration Ondansetron HCl 4 mg 07/13/19 20:08 Zofran Odt PO Q6H PRN Nausea And Vomiting Sodium Chloride 10 ml 07/13/19 22:00 07/15/19 21:55 Sodium Chloride Flush Syringe 10 Ml IV 10 ml BID ROSE Administration Sodium Chloride 10 ml 07/13/19 13:10 Sodium Chloride Flush Syringe 10 Ml IV PRN PRN LINE FLUSH Sodium Chloride 1 gm 07/14/19 07:30 07/15/19 17:33 Sodium Chloride PO 1 gm AC ROSE Administration Tramadol HCl 50 mg 07/13/19 22:00 07/15/19 21:53 Ultram PO 50 mg BID ROSE Administration Nutrition/Malnutrition Assess - Dietary Evaluation Nutrition/Malnutrition Findings: Nutrition Notes Start: 07/14/19 11:13 Freq: Status: Active Protocol: Document 07/14/19 11:13 CASIMIRO (Rec: 07/14/19 11:28 [id number]) Nutrition Notes Need for Assessment generated from: MD Order Initial or Follow up Assessment Current Diagnosis COPD,Hypertension Other Pertinent Diagnosis s/p trach placement, h/o brain cancer s/p resection Current Diet NPO Labs/Tests Na: 134 Cr: 0.4 Pertinent Medications Reviewed Height 5 ft 4 in Weight 46.6 kg [place] Body Weight (kg) 54.54 BMI 17.6 Subjective/Other Information Pt consulted for malnutrition. Pt from SNF ([facility]). Pt has trach and was unable to speak to RD. 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 RD observed severe protein and fat wasting. Per progress note, pt awaiting ALARM SERVICE TECHNICIAN consult. Burn Absent Trauma Absent Minimum of two criteria Yes Body Fat Depletion Moderate depletion (severe) Muscle Mass Moderate Depletion (severe) #1 Nutrition Diagnosis Malnutrition Etiology COPD s/p trach placement As Evidenced by Signs and Symptoms Moderate depletion of both muscle mass and body fat tissues Is patient on ventilator? No Is Patient Ambulatory and/or Out of Bed No REE-([facility]-confined to bed) 1242.204 Kcal/Kg value to use for calculation 34 Approximate Energy Requirements Using 1584 kcal/Kg Calculation Used for Recommendations Kcal/kg Additional Notes Pro needs: 56-70g/day (1.2-1.5 g/kg BW) Fluid needs: 1 ml/kcal Nutrition Intervention Change Diet Order: Advance diet when medically feasible Nutrition Support: TF consult if diet cannot be advanced Goal #1 Diet advancement when medically feasible Goal #2 TF consult if diet cannot be advanced Anticipated Discharge Needs: Unknown at this time Follow-Up By: 07/18/19 Additional Comments F/u for ALARM SERVICE TECHNICIAN consult results, diet advancement
[2019-07-16] MEDS: ULTRAM PO SCH ×2 (10:58→23:38)
[2019-07-16] MEDS: METOPROLOL PO SCH (11:01)
[2019-07-16] MEDS: LEXAPRO PO SCH (11:02)
[2019-07-16] MEDS: KEPPRA PO SCH ×2 (11:02→23:28)
[2019-07-16] MEDS: ENOXAPARIN SUB-Q SCH (11:02)
[2019-07-16] MEDS: PEPCID PO SCH (11:02)
[2019-07-16] MEDS: SODIUM CHLORIDE FLUSH SYRINGE 10 ML IV SCH ×2 (11:03→23:38)
[2019-07-16] MEDS: KEPPRA 1,000 MG in D5W 100 ML IV SCH (23:28)
[2019-07-16] MEDS: METOPROLOL IV SCH (23:42)
[2019-07-17] MEDS: TYLENOL PO SCH ×2 (03:59→10:02)
[2019-07-17] MEDS: AZACTAM/NS 1 GM/50 ML 1 GM/50 ML VIAL IV SCH ×3 (05:30→18:05)
[2019-07-17] MEDS: DUONEB *Not for PRN Use IH SCH ×3 (07:48→21:24)
[2019-07-17] MEDS: FLAGYL 500 MG/100 ML 500 MG/100 ML BAG IV SCH ×2 (07:56→19:20)
[2019-07-17] MEDS: KEPPRA PO SCH (10:03)
[2019-07-17] MEDS: LEXAPRO PO SCH (10:05)
[2019-07-17] MEDS: KEPPRA 1,000 MG in D5W 100 ML IV SCH ×2 (10:05→22:56)
[2019-07-17] MEDS: PEPCID PO SCH (10:07)
[2019-07-17] MEDS: SODIUM CHLORIDE FLUSH SYRINGE 10 ML IV SCH (10:07)
[2019-07-17] MEDS: ENOXAPARIN SUB-Q SCH (10:15)
--- NOTE | 2019-07-17 10:52 | Progress Note ---
Assessment and Plan Assessment and plan: 58-year-old woman who presented from residential with difficulty breathing. The patient was apparently found in respiratory distress and having cough after eating breakfast at the residential. Discharge was noted from the trach site, and patient was hypoxic to 80% even on supplemental oxygen, she was brought to the hospital by EMS. Diagnosis; chronic respiratory failure status post trach, hypertension, brain tumor status post resection, seizure disorder, debility pneumonia/aspiration pneumonia Continue antibiotics, speech therapy consult dysphagia -NPO for MBS tomorrow, meds switched IV Chest pain EKG, morphine, cardiology consult, serial trops Acute on chronic hypoxic respiratory failure Continue supplemental oxygen Malnutrition Dietitian consult Tracheostomy dependent, continue trach care has fenestrated cap and is verbal Hypertension, seizure Continue home meds DVT prophylaxis with Lovenox History Interval history: Review of systems Constitutional: No fevers, generalized weakness and malaise CVS: c/o R sided chest pain GI: No abdominal pain, no diarrhea, no vomiting, no constipation Respiratory: Continues to have nonproductive cough, with tracheal discharge, no sob Hospitalist Physical - Physical exam Narrative exam: General.: Appears chronically ill, cachectic, mild distress HEENT: Moist mucous membranes, extraocular muscles intact, no lymphadenopathy Trach noted Neck: supple Cardiac: S1-S2 heard Lungs: Crackles in both bases Abdomen: soft , nontender, nondistended, bowel sounds positive Extremities: no edema clubbing or cyanosis Skin: no rash or lesions Neurologic: no gross focal deficits Psych: calm, and cooperative - Constitutional Vitals: Temp Pulse Resp BP Pulse Ox 98.6 F 74 18 122/53 99 07/17/19 05:35 07/17/19 07:56 07/17/19 07:56 07/17/19 05:35 07/17/19 07:56 General appearance: Present: mild distress, cachectic Results - Labs CBC & Chem 7: 07/14/19 05:53 07/14/19 05:53 Labs: Laboratory Last Values WBC 5.1 K/mm3 (4.5-11.0) 07/14/19 05:53 RBC 3.27 M/mm3 (3.65-5.03) L 07/14/19 05:53 Hgb 9.5 gm/dl (10.1-14.3) L 07/14/19 05:53 Hct 28.9 % (30.3-42.9) L 07/14/19 05:53 MCV 88 fl (79-97) 07/14/19 05:53 MCH 29 pg (28-32) 07/14/19 05:53 MCHC 33 % (30-34) 07/14/19 05:53 RDW 16.4 % (13.2-15.2) H 07/14/19 05:53 Plt Count 357 K/mm3 (140-440) 07/14/19 05:53 Lymph % (Auto) 18.9 % (13.4-35.0) 07/14/19 05:53 [place] % (Auto) 5.8 % (0.0-7.3) 07/14/19 05:53 Eos % (Auto) 0.0 % (0.0-4.3) 07/14/19 05:53 Baso % (Auto) 0.2 % (0.0-1.8) 07/14/19 05:53 Lymph # 1.0 K/mm3 (1.2-5.4) L 07/14/19 05:53 [place] # 0.3 K/mm3 (0.0-0.8) 07/14/19 05:53 Eos # 0.0 K/mm3 (0.0-0.4) 07/14/19 05:53 Baso # 0.0 K/mm3 (0.0-0.1) 07/14/19 05:53 Seg Neutrophils % 75.1 % (40.0-70.0) H 07/14/19 05:53 Seg Neutrophils # 3.8 K/mm3 (1.8-7.7) 07/14/19 05:53 PT 12.4 Sec. (12.2-14.9) 07/13/19 10:26 INR 0.95 (0.87-1.13) 07/13/19 10:26 APTT 38.5 Sec. (24.2-36.6) H 07/13/19 10:26 D-Dimer 2411.46 ng/mlDDU (0-234) H 07/13/19 10:26 Sodium 134 mmol/L (137-145) L 07/14/19 05:53 Potassium 4.0 mmol/L (3.6-5.0) 07/14/19 05:53 Chloride 98.0 mmol/L (98-107) 07/14/19 05:53 Carbon Dioxide 23 mmol/L (22-30) 07/14/19 05:53 Anion Gap 17 mmol/L 07/14/19 05:53 BUN 8 mg/dL (7-17) 07/14/19 05:53 Creatinine 0.4 mg/dL (0.7-1.2) L 07/14/19 05:53 Estimated GFR > 60 ml/min 07/14/19 05:53 BUN/Creatinine Ratio 20 % 07/14/19 05:53 Glucose 93 mg/dL (65-100) 07/14/19 05:53 Lactic Acid 1.10 mmol/L (0.7-2.0) 07/13/19 10:26 Calcium 8.3 mg/dL (8.4-10.2) L 07/14/19 05:53 Total Bilirubin 0.40 mg/dL (0.1-1.2) 07/14/19 05:53 AST 15 units/L (5-40) 07/14/19 05:53 ALT 10 units/L (7-56) 07/14/19 05:53 Alkaline Phosphatase 178 units/L (35-129) H 07/14/19 05:53 Total Creatine Kinase 21 units/L (30-135) L 07/13/19 10:26 CK-MB (CK-2) < 1.0 ng/mL (0.0-4.0) 07/13/19 10:26 CK-MB (CK-2) Rel Index 4.7 (0-4) H 07/13/19 10:26 Troponin T < 0.010 ng/mL (0.00-0.029) 07/13/19 10:26 Total Protein 5.8 g/dL (6.3-8.2) L D 07/14/19 05:53 Albumin 3.2 g/dL (3.9-5) L 07/14/19 05:53 Albumin/Globulin Ratio 1.2 % 07/14/19 05:53 Procalcitonin 1.12 ng/mL (<0.15) 07/15/19 04:37 Urine Color Yellow (Yellow) 07/13/19 10:58 Urine Turbidity Clear (Clear) 07/13/19 10:58 Urine pH 6.0 (5.0-7.0) 07/13/19 10:58 Ur Specific [place] 1.017 (1.003-1.030) 07/13/19 10:58 Urine Protein 100 mg/dl mg/dL (Negative) 07/13/19 10:58 Urine Glucose (UA) Neg mg/dL (Negative) 07/13/19 10:58 Urine Ketones Neg mg/dL (Negative) 07/13/19 10:58 Urine Blood Sm (Negative) 07/13/19 10:58 Urine Nitrite Neg (Negative) 07/13/19 10:58 Urine Bilirubin Neg (Negative) 07/13/19 10:58 Urine Urobilinogen < 2.0 mg/dL (<2.0) 07/13/19 10:58 Ur Leukocyte Esterase Neg (Negative) 07/13/19 10:58 Urine WBC (Auto) 7.0 /HPF (0.0-6.0) H 07/13/19 10:58 Urine RBC (Auto) 10.0 /HPF (0.0-6.0) 07/13/19 10:58 U Epithel Cells (Auto) < 1.0 /HPF (0-13.0) 07/13/19 10:58 Urine Mucus Few /HPF 07/13/19 10:58 Active Medications - Current Medications Current Medications: Generic Name Dose Route Start Last Admin Trade Name Freq PRN Reason Stop Dose Admin Acetaminophen 650 mg 07/13/19 20:00 07/17/19 10:02 Tylenol PO Not Given Q6H ROSE Albuterol 2.5 mg 07/13/19 13:10 Proventil IH Q3HRT PRN Shortness Of Breath Albuterol/Ipratropium 1 ampul 07/16/19 08:00 07/17/19 07:48 Duoneb *Not For Prn Use* IH 1 ampul TIDRT ROSE Administration Enoxaparin Sodium 40 mg 07/14/19 10:00 07/17/19 10:15 Lovenox SUB-Q 40 mg QDAY@1000 RSOE Administration Escitalopram Oxalate 10 mg 07/14/19 10:00 07/17/19 10:05 Lexapro PO Not Given DAILY ROSE Famotidine 20 mg 07/14/19 10:00 07/17/19 10:07 Pepcid PO Not Given QDAY ROSE Metronidazole 500 mg in 100 mls @ 100 mls/hr 07/13/19 22:00 07/17/19 07:56 Flagyl 500 Mg/100 Ml IV 100 mls/hr Q8H ROSE Administration Protocol Aztreonam 1 gm in 50 mls @ 50 mls/hr 07/14/19 12:00 07/17/19 05:30 Azactam/Ns 1 Gm/50 Ml IV 50 mls/hr Q6HR ROSE Administration Protocol Vancomycin HCl 750 mg/ Sodium 265 mls @ 166.667 mls/hr 07/14/19 12:00 07/16/19 23:27 Chloride IV 166.667 mls/hr Q12H ROSE Administration Levetiracetam 1,000 mg/ 110 mls @ 400 mls/hr 07/16/19 23:00 07/17/19 10:05 Dextrose IV 400 mls/hr Q12HR ROSE Administration Levetiracetam 1,000 mg 07/13/19 22:00 07/17/19 10:03 Keppra PO Not Given BID ROSE Metoprolol Tartrate 5 mg 07/16/19 23:00 07/16/19 23:42 Lopressor IV Not Given BID ROSE Ondansetron HCl 4 mg 07/13/19 20:08 Zofran Odt PO Q6H PRN Nausea And Vomiting Sodium Chloride 10 ml 07/13/19 22:00 07/17/19 10:07 Sodium Chloride Flush Syringe 10 Ml IV 10 ml BID ROSE Administration Sodium Chloride 10 ml 07/13/19 13:10 Sodium Chloride Flush Syringe 10 Ml IV PRN PRN LINE FLUSH Sodium Chloride 1 gm 07/14/19 07:30 07/16/19 17:01 Sodium Chloride PO Not Given AC ROSE Tramadol HCl 50 mg 07/13/19 22:00 07/16/19 23:38 Ultram PO Not Given BID ROSE Nutrition/Malnutrition Assess - Dietary Evaluation Nutrition/Malnutrition Findings: Nutrition Notes Start: 07/14/19 11:13 Freq: Status: Active Protocol: Document 07/14/19 11:13 CASIMIRO (Rec: 07/14/19 11:28 [email or web address] [id number]) Nutrition Notes Need for Assessment generated from: MD Order Initial or Follow up Assessment Current Diagnosis COPD,Hypertension Other Pertinent Diagnosis s/p trach placement, h/o brain cancer s/p resection Current Diet NPO Labs/Tests Na: 134 Cr: 0.4 Pertinent Medications Reviewed Height 5 ft 4 in Weight 46.6 kg [place] Body Weight (kg) 54.54 BMI 17.6 Subjective/Other Information Pt consulted for malnutrition. Pt from SNF ([facility]). Pt has trach and was unable to speak to RD. 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 RD observed severe protein and fat wasting. Per progress note, pt awaiting REHABILITATION PROGRAM COORDINATOR consult. Burn Absent Trauma Absent Minimum of two criteria Yes Body Fat Depletion Moderate depletion (severe) Muscle Mass Moderate Depletion (severe) #1 Nutrition Diagnosis Malnutrition Etiology COPD s/p trach placement As Evidenced by Signs and Symptoms Moderate depletion of both muscle mass and body fat tissues Is patient on ventilator? No Is Patient Ambulatory and/or Out of Bed No REE-([facility]-confined to bed) 1242.204 Kcal/Kg value to use for calculation 34 Approximate Energy Requirements Using 1584 kcal/Kg Calculation Used for Recommendations Kcal/kg Additional Notes Pro needs: 56-70g/day (1.2-1.5 g/kg BW) Fluid needs: 1 ml/kcal Nutrition Intervention Change Diet Order: Advance diet when medically feasible Nutrition Support: TF consult if diet cannot be advanced Goal #1 Diet advancement when medically feasible Goal #2 TF consult if diet cannot be advanced Anticipated Discharge Needs: Unknown at this time Follow-Up By: 07/18/19 Additional Comments F/u for REHABILITATION PROGRAM COORDINATOR consult results, diet advancement
[2019-07-17] MEDS: ULTRAM PO SCH (12:39)
[2019-07-17] MEDS: METOPROLOL IV SCH (12:41)
[2019-07-17] MEDS: SODIUM CHLORIDE PO SCH ×2 (12:45→18:05)
[2019-07-17] MEDS ORDERED: TYLENOL PR PRN (12:50)
[2019-07-17] MEDS ORDERED: MORPHINE IV PRN (12:52)
[2019-07-17] MEDS ORDERED: ZOFRAN IV PRN (12:56)
[2019-07-17] MEDS ORDERED: PEPCID IV SCH (13:00)
--- NOTE | 2019-07-17 14:23 | XRay Report ---
CHEST 1 VIEW INDICATION / CLINICAL INFORMATION: CP. COMPARISON: 07/13/2019 FINDINGS: SUPPORT DEVICES: Tracheostomy tube is in place unchanged. HEART / MEDIASTINUM: No significant abnormality. LUNGS / PLEURA: Right lung is clear. Left lower lobe consolidation shows improvement. No edema or eff usions. No pneumothorax. ADDITIONAL FINDINGS: Arthritic changes of the shoulders are noted. There may be a drainage tube over the upper abdomen. IMPRESSION: 1 Improving chest Signer Name: Bonifacio Tucker MD Signed: 07/17/2019 2:18 PM Workstation Name: [id number]
[2019-07-17 15:10] LABS: Hematocrit 34.3 % (30.3-42.9); Hemoglobin 11.3 gm/dl (10.1-14.3); Mean Corpuscular HGB Conc 33 % (30-34); Mean Corpuscular Volume 86 fl (79-97); Platelet Count 384 K/mm3 (140-440); Red Blood Count 3.99 M/mm3 (3.65-5.03); Red Cell Distribution Width 16.7 % (13.2-15.2)
[2019-07-17 15:26] LABS: BUN/Creatinine Ratio 13; Blood Urea Nitrogen 5 mg/dL (7-17); Calcium 8.4 mg/dL (8.4-10.2); Hemolysis Index 4
[2019-07-17 16:00] LABS: Band Neutrophils # (Manual) 0.1 K/mm3; Basophils % (Manual) 0 % (0.0-1.8); Total Cells Counted 100
[2019-07-17 16:01] LABS: Anisocytosis 1+; Ovalocytes Few
[2019-07-17] MEDS: VANCOMYCIN 750 MG in NACL 0.9% 250ML 250 ML IV SCH (16:10)
[2019-07-17] MEDS: D5/0.45NS 1,000 ML IV SCH (16:10)
[2019-07-17] MEDS ORDERED: SODIUM PHOSPHATE 45 MMOL in NACL 0.9% 500 ML 500 ML IV ONE (18:00)
[2019-07-18] MEDS: AZACTAM/NS 1 GM/50 ML 1 GM/50 ML VIAL IV SCH ×5 (00:25→23:31)
[2019-07-18] MEDS: D5/0.45NS 1,000 ML IV SCH ×2 (03:25→23:43)
[2019-07-18] MEDS: VANCOMYCIN 750 MG in NACL 0.9% 250ML 250 ML IV SCH ×3 (03:25→23:31)
[2019-07-18] MEDS: ULTRAM PO SCH ×3 (04:28→21:08)
[2019-07-18] MEDS: FLAGYL 500 MG/100 ML 500 MG/100 ML BAG IV SCH ×4 (06:51→21:08)
[2019-07-18] MEDS: SODIUM CHLORIDE FLUSH SYRINGE 10 ML IV SCH ×3 (06:56→21:09)
[2019-07-18] MEDS: SODIUM CHLORIDE PO SCH ×3 (07:30→16:30)
[2019-07-18] MEDS: DUONEB *Not for PRN Use IH SCH ×3 (08:02→20:45)
[2019-07-18] MEDS: KEPPRA 1,000 MG in D5W 100 ML IV SCH ×2 (10:00→21:08)
[2019-07-18] MEDS: LEXAPRO PO SCH (10:00)
--- NOTE | 2019-07-18 10:24 | Progress Note ---
<VICTOR MANUEL LACKEY - Last Filed: 07/18/19 12:08> Hospitalist Physical - Constitutional Vitals: Temp Pulse Resp BP Pulse Ox 98.1 F 74 18 121/76 99 07/18/19 06:09 07/17/19 22:31 07/18/19 11:31 07/18/19 06:09 07/18/19 11:31 Results - Labs CBC & Chem 7: 07/17/19 14:44 07/17/19 14:44 Labs: Laboratory Last Values WBC 6.0 K/mm3 (4.5-11.0) 07/17/19 14:44 RBC 3.99 M/mm3 (3.65-5.03) 07/17/19 14:44 Hgb 11.3 gm/dl (10.1-14.3) 07/17/19 14:44 Hct 34.3 % (30.3-42.9) 07/17/19 14:44 MCV 86 fl (79-97) 07/17/19 14:44 MCH 28 pg (28-32) 07/17/19 14:44 MCHC 33 % (30-34) 07/17/19 14:44 RDW 16.7 % (13.2-15.2) H 07/17/19 14:44 Plt Count 384 K/mm3 (140-440) 07/17/19 14:44 Lymph % (Auto) 18.9 % (13.4-35.0) 07/14/19 05:53 [place] % (Auto) 5.8 % (0.0-7.3) 07/14/19 05:53 Eos % (Auto) 0.0 % (0.0-4.3) 07/14/19 05:53 Baso % (Auto) 0.2 % (0.0-1.8) 07/14/19 05:53 Lymph # 1.0 K/mm3 (1.2-5.4) L 07/14/19 05:53 [place] # 0.3 K/mm3 (0.0-0.8) 07/14/19 05:53 Eos # 0.0 K/mm3 (0.0-0.4) 07/14/19 05:53 Baso # 0.0 K/mm3 (0.0-0.1) 07/14/19 05:53 Add Manual Diff Complete 07/17/19 14:44 Total Counted 100 07/17/19 14:44 Seg Neutrophils % 75.1 % (40.0-70.0) H 07/14/19 05:53 Seg Neuts % (Manual) 78.0 % (40.0-70.0) H 07/17/19 14:44 Band Neutrophils % 1.0 % 07/17/19 14:44 Lymphocytes % (Manual) 16 % (13.4-35.0) 07/17/19 14:44 Reactive Lymphs % (Man) 0 % 07/17/19 14:44 Monocytes % (Manual) 5.0 % (0.0-7.3) 07/17/19 14:44 Eosinophils % (Manual) 1.0 % (0.0-4.3) 07/17/19 14:44 Basophils % (Manual) 0 % (0.0-1.8) 07/17/19 14:44 Metamyelocytes % 0 % 07/17/19 14:44 Myelocytes % 0 % 07/17/19 14:44 Promyelocytes % 0 % 07/17/19 14:44 Blast Cells % 0 % 07/17/19 14:44 Nucleated RBC % 0.0 % (0.0-0.9) 07/17/19 14:44 Seg Neutrophils # 3.8 K/mm3 (1.8-7.7) 07/14/19 05:53 Seg Neutrophils # Man 4.7 K/mm3 (1.8-7.7) 07/17/19 14:44 Band Neutrophils # 0.1 K/mm3 07/17/19 14:44 Lymphocytes # (Manual) 0.9 K/mm3 (1.2-5.4) L 07/17/19 14:44 Abs React Lymphs (Man) 0.0 K/mm3 07/17/19 14:44 Monocytes # (Manual) 0.3 K/mm3 (0.0-0.8) 07/17/19 14:44 Eosinophils # (Manual) 0.1 K/mm3 (0.0-0.4) 07/17/19 14:44 Basophils # (Manual) 0.0 K/mm3 (0.0-0.1) 07/17/19 14:44 Metamyelocytes # 0.0 K/mm3 07/17/19 14:44 Myelocytes # 0.0 K/mm3 07/17/19 14:44 Promyelocytes # 0.0 K/mm3 07/17/19 14:44 Blast Cells # 0.0 K/mm3 07/17/19 14:44 WBC Morphology Not Reportable 07/17/19 14:44 Hypersegmented Neuts Not Reportable 07/17/19 14:44 Hyposegmented Neuts Not Reportable 07/17/19 14:44 Hypogranular Neuts Not Reportable 07/17/19 14:44 Smudge Cells Not Reportable 07/17/19 14:44 Toxic Granulation Not Reportable 07/17/19 14:44 Toxic Vacuolation Not Reportable 07/17/19 14:44 Dohle Bodies Not Reportable 07/17/19 14:44 Pelger-Huet Anomaly Not Reportable 07/17/19 14:44 Negro Rods Not Reportable 07/17/19 14:44 Platelet Estimate Appears normal 07/17/19 14:44 Clumped Platelets Not Reportable 07/17/19 14:44 Plt Clumps, EDTA Not Reportable 07/17/19 14:44 Large Platelets Not Reportable 07/17/19 14:44 Giant Platelets Not Reportable 07/17/19 14:44 Platelet Satelliting Not Reportable 07/17/19 14:44 Plt Morphology Comment Not Reportable 07/17/19 14:44 RBC Morphology Not Reportable 07/17/19 14:44 Dimorphic RBCs Not Reportable 07/17/19 14:44 Polychromasia Not Reportable 07/17/19 14:44 Hypochromasia Not Reportable 07/17/19 14:44 Poikilocytosis Not Reportable 07/17/19 14:44 Anisocytosis 1+ 07/17/19 14:44 Microcytosis Not Reportable 07/17/19 14:44 Macrocytosis Not Reportable 07/17/19 14:44 Spherocytes Not Reportable 07/17/19 14:44 Pappenheimer Bodies Not Reportable 07/17/19 14:44 Sickle Cells Not Reportable 07/17/19 14:44 Target Cells Not Reportable 07/17/19 14:44 Tear Drop Cells Not Reportable 07/17/19 14:44 Ovalocytes Few 07/17/19 14:44 Helmet Cells Not Reportable 07/17/19 14:44 [place] Bodies Not Reportable 07/17/19 14:44 [place] Rings Not Reportable 07/17/19 14:44 [place] Cells Not Reportable 07/17/19 14:44 Bite Cells Not Reportable 07/17/19 14:44 Crenated Cell Not Reportable 07/17/19 14:44 Elliptocytes Not Reportable 07/17/19 14:44 Acanthocytes (Spur) Not Reportable 07/17/19 14:44 Rouleaux Not Reportable 07/17/19 14:44 Hemoglobin C Crystals Not Reportable 07/17/19 14:44 Schistocytes Not Reportable 07/17/19 14:44 Malaria parasites Not Reportable 07/17/19 14:44 [place] Bodies Not Reportable 07/17/19 14:44 Hem Pathologist Commnt No 07/17/19 14:44 PT 12.4 Sec. (12.2-14.9) 07/13/19 10:26 INR 0.95 (0.87-1.13) 07/13/19 10:26 APTT 38.5 Sec. (24.2-36.6) H 07/13/19 10:26 D-Dimer 2411.46 ng/mlDDU (0-234) H 07/13/19 10:26 Sodium 134 mmol/L (137-145) L 07/17/19 14:44 Potassium 3.9 mmol/L (3.6-5.0) 07/17/19 14:44 Chloride 96.0 mmol/L (98-107) L 07/17/19 14:44 Carbon Dioxide 20 mmol/L (22-30) L 07/17/19 14:44 Anion Gap 22 mmol/L 07/17/19 14:44 BUN 5 mg/dL (7-17) L 07/17/19 14:44 Creatinine 0.4 mg/dL (0.7-1.2) L 07/17/19 14:44 Estimated GFR > 60 ml/min 07/17/19 14:44 BUN/Creatinine Ratio 13 % 07/17/19 14:44 Glucose 63 mg/dL (65-100) L 07/17/19 14:44 Lactic Acid 1.10 mmol/L (0.7-2.0) 07/13/19 10:26 Calcium 8.4 mg/dL (8.4-10.2) 07/17/19 14:44 Phosphorus 2.10 mg/dL (2.5-4.5) L 07/17/19 14:44 Magnesium 1.90 mg/dL (1.7-2.3) 07/17/19 14:44 Total Bilirubin 0.40 mg/dL (0.1-1.2) 07/14/19 05:53 AST 15 units/L (5-40) 07/14/19 05:53 ALT 10 units/L (7-56) 07/14/19 05:53 Alkaline Phosphatase 178 units/L (35-129) H 07/14/19 05:53 Total Creatine Kinase 21 units/L (30-135) L 07/13/19 10:26 CK-MB (CK-2) < 1.0 ng/mL (0.0-4.0) 07/13/19 10:26 CK-MB (CK-2) Rel Index 4.7 (0-4) H 07/13/19 10:26 Troponin T 0.018 ng/mL (0.00-0.029) 07/17/19 14:44 Total Protein 5.8 g/dL (6.3-8.2) L D 07/14/19 05:53 Albumin 3.2 g/dL (3.9-5) L 07/14/19 05:53 Albumin/Globulin Ratio 1.2 % 07/14/19 05:53 Procalcitonin 1.12 ng/mL (<0.15) 07/15/19 04:37 Urine Color Yellow (Yellow) 07/13/19 10:58 Urine Turbidity Clear (Clear) 07/13/19 10:58 Urine pH 6.0 (5.0-7.0) 07/13/19 10:58 Ur Specific [place] 1.017 (1.003-1.030) 07/13/19 10:58 Urine Protein 100 mg/dl mg/dL (Negative) 07/13/19 10:58 Urine Glucose (UA) Neg mg/dL (Negative) 07/13/19 10:58 Urine Ketones Neg mg/dL (Negative) 07/13/19 10:58 Urine Blood Sm (Negative) 07/13/19 10:58 Urine Nitrite Neg (Negative) 07/13/19 10:58 Urine Bilirubin Neg (Negative) 07/13/19 10:58 Urine Urobilinogen < 2.0 mg/dL (<2.0) 07/13/19 10:58 Ur Leukocyte Esterase Neg (Negative) 07/13/19 10:58 Urine WBC (Auto) 7.0 /HPF (0.0-6.0) H 07/13/19 10:58 Urine RBC (Auto) 10.0 /HPF (0.0-6.0) 07/13/19 10:58 U Epithel Cells (Auto) < 1.0 /HPF (0-13.0) 07/13/19 10:58 Urine Mucus Few /HPF 07/13/19 10:58 Vancomycin Trough 18.5 ug/mL (5.0-20.0) 07/17/19 10:43 Active Medications - Current Medications Current Medications: Generic Name Dose Route Start Last Admin Trade Name Freq PRN Reason Stop Dose Admin Acetaminophen 650 mg 07/17/19 12:50 Tylenol FL Q4H PRN Pain, Mild (1-3) Albuterol 2.5 mg 07/13/19 13:10 Proventil IH Q3HRT PRN Shortness Of Breath Albuterol/Ipratropium 1 ampul 07/16/19 08:00 07/18/19 08:02 Duoneb *Not For Prn Use* IH Not Given TIDRT [facility] Enoxaparin Sodium 40 mg 07/14/19 10:00 07/17/19 10:15 Lovenox SUB-Q 40 mg QDAY@1000 ROSE Administration Escitalopram Oxalate 10 mg 07/14/19 10:00 07/17/19 10:05 Lexapro PO Not Given DAILY [facility] Famotidine 20 mg 07/18/19 10:00 Pepcid IV DAILY [facility] Metronidazole 500 mg in 100 mls @ 100 mls/hr 07/13/19 22:00 07/18/19 07:00 Flagyl 500 Mg/100 Ml IV 100 mls/hr Q8H [facility] Administration Protocol Aztreonam 1 gm in 50 mls @ 50 mls/hr 07/14/19 12:00 07/18/19 05:50 Azactam/Ns 1 Gm/50 Ml IV 50 mls/hr Q6HR [facility] Administration Protocol Vancomycin HCl 750 mg/ Sodium 265 mls @ 166.667 mls/hr 07/14/19 12:00 07/18/19 03:25 Chloride IV 166.667 mls/hr Q12H [facility] Administration Levetiracetam 1,000 mg/ 110 mls @ 400 mls/hr 07/16/19 23:00 07/17/19 22:56 Dextrose IV 400 mls/hr Q12HR RO[facility] Administration Dextrose/Sodium Chloride 1,000 mls @ 100 mls/hr 07/17/19 13:00 07/18/19 03:25 D5/0.45ns IV 100 mls/hr DIRECT [facility] Administration Morphine Sulfate 2 mg 07/17/19 12:52 07/17/19 16:30 Morphine IV 2 mg Q3H PRN Administration Pain, Moderate (4-6) Ondansetron HCl 4 mg 07/17/19 12:56 Zofran IV Q6H PRN Nausea And Vomiting Sodium Chloride 10 ml 07/13/19 22:00 07/18/19 06:56 Sodium Chloride Flush Syringe 10 Ml IV 10 ml BID ROSE Administration Sodium Chloride 10 ml 07/13/19 13:10 Sodium Chloride Flush Syringe 10 Ml IV PRN PRN LINE FLUSH Sodium Chloride 1 gm 07/14/19 07:30 07/17/19 18:05 Sodium Chloride PO Not Given AC [facility] Tramadol HCl 50 mg 07/13/19 22:00 07/18/19 04:28 Ultram PO Not Given BID ROSE Nutrition/Malnutrition Assess - Dietary Evaluation Nutrition/Malnutrition Findings: Nutrition Notes Start: 07/14/19 11:13 Freq: Status: Active Protocol: Document 07/14/19 11:13 (Rec: 07/14/19 11:28 [id number]) Nutrition Notes Need for Assessment generated from: MD Order Initial or Follow up Assessment Current Diagnosis COPD,Hypertension Other Pertinent Diagnosis s/p trach placement, h/o brain cancer s/p resection Current Diet NPO Labs/Tests Na: 134 Cr: 0.4 Pertinent Medications Reviewed Height 5 ft 4 in Weight 46.6 kg E[place] Body Weight (kg) 54.54 BMI 17.6 Subjective/Other Information Pt consulted for malnutrition. Pt from SNF ([facility] Pt has trach and was unable to speak to RD. 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 RD observed severe protein and fat wasting. Per progress note, pt awaiting POLICE PATROL OFFICER consult. Burn Absent Trauma Absent Minimum of two criteria Yes Body Fat Depletion Moderate depletion (severe) Muscle Mass Moderate Depletion (severe) #1 Nutrition Diagnosis Malnutrition Etiology COPD s/p trach placement As Evidenced by Signs and Symptoms Moderate depletion of both muscle mass and body fat tissues Is patient on ventilator? No Is Patient Ambulatory and/or Out of Bed No REE-([place]-St. Jeor-confined to bed) 1242.204 Kcal/Kg value to use for calculation 34 Approximate Energy Requirements Using 1584 kcal/Kg Calculation Used for Recommendations Kcal/kg Additional Notes Pro needs: 56-70g/day (1.2-1.5 g/kg BW) Fluid needs: 1 ml/kcal Nutrition Intervention Change Diet Order: Advance diet when medically feasible Nutrition Support: TF consult if diet cannot be advanced Goal #1 Diet advancement when medically feasible Goal #2 TF consult if diet cannot be advanced Anticipated Discharge Needs: Unknown at this time Follow-Up By: 07/18/19 Additional Comments F/u for POLICE PATROL OFFICER consult results, diet advancement <CARLY TRUJILLO M - Last Filed: 07/18/19 15:17> Assessment and Plan Assessment and plan: 58-year-old woman who presented from snf with difficulty breathing. The patient was apparently found in respiratory distress and having cough after eating breakfast at the snf. Discharge was noted from the [facility] site, and patient was hypoxic to 80% even on supplemental oxygen, she was brought to the hospital by EMS. Diagnosis; chronic respiratory failure status post trach, hypertension, brain tumor status post resection, seizure disorder, debility pneumonia/aspiration pneumonia Continue antibiotics, speech therapy consult appreciated Patient is extremely frustrated unhappy about being n.p.o. Will put on pured diet until MBS results are back. dysphagia -NPO for MBS today, meds switched IV Chest pain EKG, morphine, cardiology consult, serial trops Acute on chronic hypoxic respiratory failure Continue supplemental oxygen Malnutrition Dietitian consult appreciated Tracheostomy dependent, continue trach care has fenestrated cap and is verbal Hypertension, seizure Continue home meds DVT prophylaxis with Lovenox Disposition for MBS today. Tentative discharge back to snf tomorrow after speech therapy has recommended appropriate modified diet for the patient History Interval history: Patient is very upset because she is hungry, has been n.p.o. for a few days now Review of systems Constitutional: No fevers, generalized weakness and malaise CVS: Chest pain has now resolved GI: No abdominal pain, no diarrhea, no vomiting, no constipation Respiratory: Continues to have nonproductive cough, with tracheal discharge, no sob Hospitalist Physical - Physical exam Narrative exam: General.: Appears chronically ill, cachectic, mild distress HEENT: Moist mucous membranes, extraocular muscles intact, no lymphadenopathy Trach noted Neck: supple Cardiac: S1-S2 heard Lungs: Crackles in both bases Abdomen: soft , nontender, nondistended, bowel sounds positive Extremities: no edema clubbing or cyanosis Skin: no rash or lesions Neurologic: no gross focal deficits Psych: calm, and cooperative - Constitutional Vitals: Temp Pulse Resp BP Pulse Ox 98.1 F 74 20 121/76 93 07/18/19 06:09 07/17/19 22:31 07/18/19 06:09 07/18/19 06:09 07/18/19 08:06 General appearance: Present: mild distress, cachectic Results - Labs CBC & Chem 7: 07/17/19 14:44 07/17/19 14:44 Labs: Laboratory Last Values WBC 6.0 K/mm3 (4.5-11.0) 07/17/19 14:44 RBC 3.99 M/mm3 (3.65-5.03) 07/17/19 14:44 Hgb 11.3 gm/dl (10.1-14.3) 07/17/19 14:44 Hct 34.3 % (30.3-42.9) 07/17/19 14:44 MCV 86 fl (79-97) 07/17/19 14:44 MCH 28 pg (28-32) 07/17/19 14:44 MCHC 33 % (30-34) 07/17/19 14:44 RDW 16.7 % (13.2-15.2) H 07/17/19 14:44 Plt Count 384 K/mm3 (140-440) 07/17/19 14:44 Lymph % (Auto) 18.9 % (13.4-35.0) 07/14/19 05:53 [place] % (Auto) 5.8 % (0.0-7.3) 07/14/19 05:53 Eos % (Auto) 0.0 % (0.0-4.3) 07/14/19 05:53 Baso % (Auto) 0.2 % (0.0-1.8) 07/14/19 05:53 Lymph # 1.0 K/mm3 (1.2-5.4) L 07/14/19 05:53 [place] # 0.3 K/mm3 (0.0-0.8) 07/14/19 05:53 Eos # 0.0 K/mm3 (0.0-0.4) 07/14/19 05:53 Baso # 0.0 K/mm3 (0.0-0.1) 07/14/19 05:53 Add Manual Diff Complete 07/17/19 14:44 Total Counted 100 07/17/19 14:44 Seg Neutrophils % 75.1 % (40.0-70.0) H 07/14/19 05:53 Seg Neuts % (Manual) 78.0 % (40.0-70.0) H 07/17/19 14:44 Band Neutrophils % 1.0 % 07/17/19 14:44 Lymphocytes % (Manual) 16 % (13.4-35.0) 07/17/19 14:44 Reactive Lymphs % (Man) 0 % 07/17/19 14:44 Monocytes % (Manual) 5.0 % (0.0-7.3) 07/17/19 14:44 Eosinophils % (Manual) 1.0 % (0.0-4.3) 07/17/19 14:44 Basophils % (Manual) 0 % (0.0-1.8) 07/17/19 14:44 Metamyelocytes % 0 % 07/17/19 14:44 Myelocytes % 0 % 07/17/19 14:44 Promyelocytes % 0 % 07/17/19 14:44 Blast Cells % 0 % 07/17/19 14:44 Nucleated RBC % 0.0 % (0.0-0.9) 07/17/19 14:44 Seg Neutrophils # 3.8 K/mm3 (1.8-7.7) 07/14/19 05:53 Seg Neutrophils # Man 4.7 K/mm3 (1.8-7.7) 07/17/19 14:44 Band Neutrophils # 0.1 K/mm3 07/17/19 14:44 Lymphocytes # (Manual) 0.9 K/mm3 (1.2-5.4) L 07/17/19 14:44 Abs React Lymphs (Man) 0.0 K/mm3 07/17/19 14:44 Monocytes # (Manual) 0.3 K/mm3 (0.0-0.8) 07/17/19 14:44 Eosinophils # (Manual) 0.1 K/mm3 (0.0-0.4) 07/17/19 14:44 Basophils # (Manual) 0.0 K/mm3 (0.0-0.1) 07/17/19 14:44 Metamyelocytes # 0.0 K/mm3 07/17/19 14:44 Myelocytes # 0.0 K/mm3 07/17/19 14:44 Promyelocytes # 0.0 K/mm3 07/17/19 14:44 Blast Cells # 0.0 K/mm3 07/17/19 14:44 WBC Morphology Not Reportable 07/17/19 14:44 Hypersegmented Neuts Not Reportable 07/17/19 14:44 Hyposegmented Neuts Not Reportable 07/17/19 14:44 Hypogranular Neuts Not Reportable 07/17/19 14:44 Smudge Cells Not Reportable 07/17/19 14:44 Toxic Granulation Not Reportable 07/17/19 14:44 Toxic Vacuolation Not Reportable 07/17/19 14:44 Dohle Bodies Not Reportable 07/17/19 14:44 Pelger-Huet Anomaly Not Reportable 07/17/19 14:44 Negro Rods Not Reportable 07/17/19 14:44 Platelet Estimate Appears normal 07/17/19 14:44 Clumped Platelets Not Reportable 07/17/19 14:44 Plt Clumps, EDTA Not Reportable 07/17/19 14:44 Large Platelets Not Reportable 07/17/19 14:44 Giant Platelets Not Reportable 07/17/19 14:44 Platelet Satelliting Not Reportable 07/17/19 14:44 Plt Morphology Comment Not Reportable 07/17/19 14:44 RBC Morphology Not Reportable 07/17/19 14:44 Dimorphic RBCs Not Reportable 07/17/19 14:44 Polychromasia Not Reportable 07/17/19 14:44 Hypochromasia Not Reportable 07/17/19 14:44 Poikilocytosis Not Reportable 07/17/19 14:44 Anisocytosis 1+ 07/17/19 14:44 Microcytosis Not Reportable 07/17/19 14:44 Macrocytosis Not Reportable 07/17/19 14:44 Spherocytes Not Reportable 07/17/19 14:44 Pappenheimer Bodies Not Reportable 07/17/19 14:44 Sickle Cells Not Reportable 07/17/19 14:44 Target Cells Not Reportable 07/17/19 14:44 Tear Drop Cells Not Reportable 07/17/19 14:44 Ovalocytes Few 07/17/19 14:44 Helmet Cells Not Reportable 07/17/19 14:44 [place] Bodies Not Reportable 07/17/19 14:44 [place] Rings Not Reportable 07/17/19 14:44 [place] Cells Not Reportable 07/17/19 14:44 Bite Cells Not Reportable 07/17/19 14:44 Crenated Cell Not Reportable 07/17/19 14:44 Elliptocytes Not Reportable 07/17/19 14:44 Acanthocytes (Spur) Not Reportable 07/17/19 14:44 Rouleaux Not Reportable 07/17/19 14:44 Hemoglobin C Crystals Not Reportable 07/17/19 14:44 Schistocytes Not Reportable 07/17/19 14:44 Malaria parasites Not Reportable 07/17/19 14:44 [place] Bodies Not Reportable 07/17/19 14:44 Hem Pathologist Commnt No 07/17/19 14:44 PT 12.4 Sec. (12.2-14.9) 07/13/19 10:26 INR 0.95 (0.87-1.13) 07/13/19 10:26 APTT 38.5 Sec. (24.2-36.6) H 07/13/19 10:26 D-Dimer 2411.46 ng/mlDDU (0-234) H 07/13/19 10:26 Sodium 134 mmol/L (137-145) L 07/17/19 14:44 Potassium 3.9 mmol/L (3.6-5.0) 07/17/19 14:44 Chloride 96.0 mmol/L (98-107) L 07/17/19 14:44 Carbon Dioxide 20 mmol/L (22-30) L 07/17/19 14:44 Anion Gap 22 mmol/L 07/17/19 14:44 BUN 5 mg/dL (7-17) L 07/17/19 14:44 Creatinine 0.4 mg/dL (0.7-1.2) L 07/17/19 14:44 Estimated GFR > 60 ml/min 07/17/19 14:44 BUN/Creatinine Ratio 13 % 07/17/19 14:44 Glucose 63 mg/dL (65-100) L 07/17/19 14:44 Lactic Acid 1.10 mmol/L (0.7-2.0) 07/13/19 10:26 Calcium 8.4 mg/dL (8.4-10.2) 07/17/19 14:44 Phosphorus 2.10 mg/dL (2.5-4.5) L 07/17/19 14:44 Magnesium 1.90 mg/dL (1.7-2.3) 07/17/19 14:44 Total Bilirubin 0.40 mg/dL (0.1-1.2) 07/14/19 05:53 AST 15 units/L (5-40) 07/14/19 05:53 ALT 10 units/L (7-56) 07/14/19 05:53 Alkaline Phosphatase 178 units/L (35-129) H 07/14/19 05:53 Total Creatine Kinase 21 units/L (30-135) L 07/13/19 10:26 CK-MB (CK-2) < 1.0 ng/mL (0.0-4.0) 07/13/19 10:26 CK-MB (CK-2) Rel Index 4.7 (0-4) H 07/13/19 10:26 Troponin T 0.018 ng/mL (0.00-0.029) 07/17/19 14:44 Total Protein 5.8 g/dL (6.3-8.2) L D 07/14/19 05:53 Albumin 3.2 g/dL (3.9-5) L 07/14/19 05:53 Albumin/Globulin Ratio 1.2 % 07/14/19 05:53 Procalcitonin 1.12 ng/mL (<0.15) 07/15/19 04:37 Urine Color Yellow (Yellow) 07/13/19 10:58 Urine Turbidity Clear (Clear) 07/13/19 10:58 Urine pH 6.0 (5.0-7.0) 07/13/19 10:58 Ur Specific [place] 1.017 (1.003-1.030) 07/13/19 10:58 Urine Protein 100 mg/dl mg/dL (Negative) 07/13/19 10:58 Urine Glucose (UA) Neg mg/dL (Negative) 07/13/19 10:58 Urine Ketones Neg mg/dL (Negative) 07/13/19 10:58 Urine Blood Sm (Negative) 07/13/19 10:58 Urine Nitrite Neg (Negative) 07/13/19 10:58 Urine Bilirubin Neg (Negative) 07/13/19 10:58 Urine Urobilinogen < 2.0 mg/dL (<2.0) 07/13/19 10:58 Ur Leukocyte Esterase Neg (Negative) 07/13/19 10:58 Urine WBC (Auto) 7.0 /HPF (0.0-6.0) H 07/13/19 10:58 Urine RBC (Auto) 10.0 /HPF (0.0-6.0) 07/13/19 10:58 U Epithel Cells (Auto) < 1.0 /HPF (0-13.0) 07/13/19 10:58 Urine Mucus Few /HPF 07/13/19 10:58 Vancomycin Trough 18.5 ug/mL (5.0-20.0) 07/17/19 10:43 Active Medications - Current Medications Current Medications: Generic Name Dose Route Start Last Admin Trade Name Freq PRN Reason Stop Dose Admin Acetaminophen 650 mg 07/17/19 12:50 Tylenol FL Q4H PRN Pain, Mild (1-3) Albuterol 2.5 mg 07/13/19 13:10 Proventil IH Q3HRT PRN Shortness Of Breath Albuterol/Ipratropium 1 ampul 07/16/19 08:00 07/18/19 08:02 Duoneb *Not For Prn Use* IH Not Given TIDRT [facility] Enoxaparin Sodium 40 mg 07/14/19 10:00 07/17/19 10:15 Lovenox SUB-Q 40 mg QDAY@1000 ROSE Administration Escitalopram Oxalate 10 mg 07/14/19 10:00 07/17/19 10:05 Lexapro PO Not Given DAILY [facility] Famotidine 20 mg 07/18/19 10:00 Pepcid IV DAILY [facility] Metronidazole 500 mg in 100 mls @ 100 mls/hr 07/13/19 22:00 07/18/19 07:00 Flagyl 500 Mg/100 Ml IV 100 mls/hr Q8H ROSE Administration Protocol Aztreonam 1 gm in 50 mls @ 50 mls/hr 07/14/19 12:00 07/18/19 05:50 Azactam/Ns 1 Gm/50 Ml IV 50 mls/hr Q6HR ROSE Administration Protocol Vancomycin HCl 750 mg/ Sodium 265 mls @ 166.667 mls/hr 07/14/19 12:00 07/18/19 03:25 Chloride IV 166.667 mls/hr Q12H ROSE Administration Levetiracetam 1,000 mg/ 110 mls @ 400 mls/hr 07/16/19 23:00 07/17/19 22:56 Dextrose IV 400 mls/hr Q12HR ROSE Administration Dextrose/Sodium Chloride 1,000 mls @ 100 mls/hr 07/17/19 13:00 07/18/19 03:25 D5/0.45ns IV 100 mls/hr DIRECT ROSE Administration Morphine Sulfate 2 mg 07/17/19 12:52 07/17/19 16:30 Morphine IV 2 mg Q3H PRN Administration Pain, Moderate (4-6) Ondansetron HCl 4 mg 07/17/19 12:56 Zofran IV Q6H PRN Nausea And Vomiting Sodium Chloride 10 ml 07/13/19 22:00 07/18/19 06:56 Sodium Chloride Flush Syringe 10 Ml IV 10 ml BID ROSE Administration Sodium Chloride 10 ml 07/13/19 13:10 Sodium Chloride Flush Syringe 10 Ml IV PRN PRN LINE FLUSH Sodium Chloride 1 gm 07/14/19 07:30 07/17/19 18:05 Sodium Chloride PO Not Given AC [facility] Tramadol HCl 50 mg 07/13/19 22:00 07/18/19 04:28 Ultram PO Not Given BID ROSE Nutrition/Malnutrition Assess - Dietary Evaluation Nutrition/Malnutrition Findings: Nutrition Notes Start: 07/14/19 11:13 Freq: Status: Active Protocol: Document 07/14/19 11:13 CASIMIRO (Rec: 07/14/19 11:28 [email or web address] [id number]) Nutrition Notes Need for Assessment generated from: MD Order Initial or Follow up Assessment Current Diagnosis COPD,Hypertension Other Pertinent Diagnosis s/p trach placement, h/o brain cancer s/p resection Current Diet NPO Labs/Tests Na: 134 Cr: 0.4 Pertinent Medications Reviewed Height 5 ft 4 in Weight 46.6 kg Erick Body Weight (kg) 54.54 BMI 17.6 Subjective/Other Information Pt consulted for malnutrition. Pt from [facility] ([facility] Pt has trach and was unable to speak to RD. 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 RD observed severe protein and fat wasting. Per progress note, pt awaiting [employer] consult. Burn Absent Trauma Absent Minimum of two criteria Yes Body Fat Depletion Moderate depletion (severe) Muscle Mass Moderate Depletion (severe) #1 Nutrition Diagnosis Malnutrition Etiology COPD s/p trach placement As Evidenced by Signs and Symptoms Moderate depletion of both muscle mass and body fat tissues Is patient on ventilator? No Is Patient Ambulatory and/or Out of Bed No REE-([place]-confined to bed) [phone] Kcal/Kg value to use for calculation 34 Approximate Energy Requirements Using 1584 kcal/Kg Calculation Used for Recommendations Kcal/kg Additional Notes Pro needs: 56-70g/day (1.2-1.5 g/kg BW) Fluid needs: 1 ml/kcal Nutrition Intervention Change Diet Order: Advance diet when medically feasible Nutrition Support: TF consult if diet cannot be advanced Goal #1 Diet advancement when medically feasible Goal #2 TF consult if diet cannot be advanced Anticipated Discharge Needs: Unknown at this time Follow-Up By: 07/18/19 Additional Comments F/u for [employer]ER consult results, diet advancement
--- NOTE | 2019-07-18 11:19 | Consultation ---
History of Present Illness Consult date: 07/18/19 Requesting physician: CARLY TRUJILLO Consult reason: chest pain History of present illness: The pt is a 58 YO Female [facility] Facility Resident at [facility] with Chronic Respiratory Failure with Trach in place, HTN, Brain Tumor S/P resection complicated by Seizure Disorder, Debility. She is withdrawn and lethargic on evaluation with trach in place and thus HPI is obtained per the chart. As per staff, the patient was found to be in respiratory distress with non productive cough after eating breakfast with discharge coming from trach site with pulse oximetry of 80% on supplemental oxygen. EMS notified and upon arrival the patient was found to be in respiratory distress and treated with aleman pplemental oxygen and nebulizer therapy without significant improvement. Pt transported to [facility]. Pt seen and evaluated in ED and found to have Acute on Chronic Hypoxemic Respiratory Failure complicated by LLL Pneumonia suspected secondary to Aspiration on gastric contents. Pt initiated on Pneumonia Protocol and admitted to medical floor. Cardiology has been consulted for chest pain, although we are unable to evaluate for chest pain at this time due to mental status. Past History Past Medical History: hypertension, seizures, other (see hpi) Past Surgical History: Other (Trach placement, brain surgery) Social history: . denies: smoking, alcohol abuse, prescription drug abuse Family history: no significant family history (reviewed) Medications and Allergies Allergies Allergy/AdvReac Type Severity Reaction Status Date / Time amoxicillin [From Augmentin] Allergy Anaphylaxis Verified 06/28/19 07:17 cefdinir [From Omnicef] Allergy Anaphylaxis Verified 06/28/19 07:17 cephalexin [From Keflex] Allergy Anaphylaxis Verified 06/28/19 07:17 clarithromycin Allergy Anaphylaxis Verified 06/28/19 07:17 clavulanic acid Allergy Anaphylaxis Verified 06/28/19 07:17 [From Augmentin] doxycycline Allergy Anaphylaxis Verified 06/28/19 07:17 levofloxacin [From Levaquin] Allergy Anaphylaxis Verified 06/28/19 07:17 Sulfa (Sulfonamide Allergy Anaphylaxis Verified 06/28/19 07:17 Antibiotics) Home Medications Medication Instructions Recorded Confirmed Last Taken Type Acetaminophen [Acetaminophen TAB] 650 mg PO Q6H 06/28/19 07/13/19 07/12/19 History Escitalopram [Lexapro] 10 mg PO DAILY 06/28/19 07/13/19 07/12/19 History Ipratropium/Albuterol Sulfate 1 ampul IH Q6HR 06/28/19 07/13/19 07/12/19 History [DUONEB *Not for PRN Use*] Metoprolol [Lopressor TAB] 25 mg PO BID 06/28/19 07/13/19 07/12/19 History Ondansetron [Zofran TAB] 4 mg PO Q6HR PRN 06/28/19 07/13/19 07/12/19 History Sodium Chloride 1 gm PO AC 06/28/19 07/13/19 07/12/19 History levETIRAcetam [Keppra TAB] 1,000 mg PO BID 06/28/19 07/13/19 07/12/19 History traMADol [Ultram 50 MG tab] 50 mg PO BID 06/28/19 07/13/19 07/12/19 History Famotidine [Pepcid] 20 mg PO QDAY tablet 07/04/19 07/13/19 07/12/19 Rx Active Meds: Active Medications Acetaminophen (Tylenol) 650 mg NV Q4H PRN PRN Reason: Pain, Mild (1-3) Albuterol (Proventil) 2.5 mg IH Q3HRT PRN PRN Reason: Shortness Of Breath Albuterol/Ipratropium (Duoneb *Not For Prn Use*) 1 ampul IH TIDRT [facility] Last Admin: 07/18/19 08:02 Dose: Not Given Documented by: Enoxaparin Sodium (Lovenox) 40 mg SUB-Q QDAY@1000 ROSE Last Admin: 07/17/19 10:15 Dose: 40 mg Documented by: Escitalopram Oxalate (Lexapro) 10 mg PO DAILY [facility] Last Admin: 07/17/19 10:05 Dose: Not Given Documented by: Famotidine (Pepcid) 20 mg IV DAILY [facility] Metronidazole (Flagyl 500 Mg/100 Ml) 500 mg in 100 mls @ 100 mls/hr IV Q8H [facility]; Protocol Last Admin: 07/18/19 07:00 Dose: 100 mls/hr Documented by: Aztreonam (Azactam/Ns 1 Gm/50 Ml) 1 gm in 50 mls @ 50 mls/hr IV Q6HR [facility]; Protocol Last Admin: 07/18/19 05:50 Dose: 50 mls/hr Documented by: Vancomycin HCl 750 mg/ Sodium (Chloride) 265 mls @ 166.667 mls/hr IV Q12H [facility] Last Admin: 07/18/19 03:25 Dose: 166.667 mls/hr Documented by: Levetiracetam 1,000 mg/ (Dextrose) 110 mls @ 400 mls/hr IV Q12HR [facility] Last Admin: 07/17/19 22:56 Dose: 400 mls/hr Documented by: Dextrose/Sodium Chloride (D5/0.45ns) 1,000 mls @ 100 mls/hr IV DIRECT [facility] Last Admin: 07/18/19 03:25 Dose: 100 mls/hr Documented by: Morphine Sulfate (Morphine) 2 mg IV Q3H PRN PRN Reason: Pain, Moderate (4-6) Last Admin: 07/17/19 16:30 Dose: 2 mg Documented by: Ondansetron HCl (Zofran) 4 mg IV Q6H PRN PRN Reason: Nausea And Vomiting Sodium Chloride (Sodium Chloride Flush Syringe 10 Ml) 10 ml IV BID [facility] Last Admin: 07/18/19 06:56 Dose: 10 ml Documented by: Sodium Chloride (Sodium Chloride Flush Syringe 10 Ml) 10 ml IV PRN PRN PRN Reason: LINE FLUSH Sodium Chloride (Sodium Chloride) 1 gm PO AC [facility] Last Admin: 07/17/19 18:05 Dose: Not Given Documented by: Tramadol HCl (Ultram) 50 mg PO BID [facility] Last Admin: 07/18/19 04:28 Dose: Not Given Documented by: Review of Systems ROS unobtainable: due to mental status Physical Examination Vital Signs Pulse Ox 98 07/13/19 09:39 General appearance: cachectic, other (withdrawn, trach in place) HEENT: Positive: PERRL Neck: Positive: neck supple, trachea midline Cardiac: Positive: Reg Rate and Rhythm, S1/S2 Lungs: Positive: Decreased Breath Sounds Neuro: Positive: Other (withdrawn, trach in place) Abdomen: Negative: Tender Skin: Negative: Rash Musculoskeletal: No Pain Extremities: Absent: edema Results 07/17/19 14:44 07/17/19 14:44 CBC 07/17/19 Range/Units 14:44 WBC 6.0 (4.5-11.0) K/mm3 RBC 3.99 (3.65-5.03) M/mm3 Hgb 11.3 (10.1-14.3) gm/dl Hct 34.3 (30.3-42.9) % Plt Count 384 (140-440) K/mm3 Comprehensive Metabolic Panel 07/17/19 Range/Units 14:44 Sodium 134 L (137-145) mmol/L Potassium 3.9 (3.6-5.0) mmol/L Chloride 96.0 L (98-107) mmol/L Carbon Dioxide 20 L (22-30) mmol/L BUN 5 L (7-17) mg/dL Creatinine 0.4 L (0.7-1.2) mg/dL Glucose 63 L (65-100) mg/dL Calcium 8.4 (8.4-10.2) mg/dL - Imaging and Cardiology Echo: pending EKG: report reviewed, image reviewed EKG interpretations - Telemetry EKG Rhythm: Sinus Rhythm - EKG Sinus rhythms and dysrhythmias: sinus rhythm Assessment and Plan Cardiology has been consulted for chest pain, although we are currently unable to evaluate for chest pain at this time due to mental status. DDimer elevated - chest CTA negative for PE. AMI ruled out. Obtain echo. The patient has been seen in conjunction with Dr. CHANDRAKANT Stewart who agrees with the assessment and plan of care. - Patient Problems (1) Chest pain Current Visit: Yes Status: Suspected (2) Acute and chronic respiratory failure Current Visit: Yes Status: Acute Qualifiers: (3) Tracheostomy in place Current Visit: Yes Status: Chronic (4) Aspiration pneumonia Current Visit: Yes Status: Acute Qualifiers: Laterality: left Lung location: lower lobe of lung (5) History of brain tumor Current Visit: Yes Status: Chronic (6) Seizure disorder Current Visit: Yes Status: Chronic (7) Debility Current Visit: Yes Status: Chronic (8) Malnutrition Current Visit: Yes Status: Chronic Qualifiers: Protein-calorie malnutrition severity: severe
--- NOTE | 2019-07-18 12:59 | Progress Note ---
Assessment and Plan Cultures: 07/13/2019 blood culture: No growth 07/13/2019 urine culture: No significant growth 07/14/2019 blood culture: no growth Resp culture: in process. A/P: 58 y/o female with history of COPD, chronic respiratory failure s/p trach, dementia, hypertension, who was recently admitted on 06/28/2019 due to be found in respiratory distress at her residential and low sats in the 50s, procal came back normal so she received a short course of abx and was d/sebastian back. Now readmitted: 1) Bilateral pneumonia, left worse compared to right, likely secondary to aspiration pneumonia: noted on CT and CXR with lung infiltrates. Also history concerning for aspiration at [place]. Procalcitonin high: 1.12 on admission. 2) Acute on chronic respiratory failure: Status post tracheostomy. 3) Malnutrition 4) Multiple antibiotic allergies: Cannot confirm the allergies given her baseline dementia and confusion. Recs: Stop abx after today's doses f/u swallow becky Jolly MD, FACP [facility] C: [phone] O: [phone] F: [phone] Subjective Date of service: 07/18/19 Interval history: Has remained afebrile. No distress. On trach collar. Objective - Exam Narrative Exam: Physical Exam: Constitutional: awake, alert, no distress. Cachexia Head, Ears, Nose: Normocephalic, atraumatic. External ears, nose normal Eyes: Conjunctivae/corneas clear. No icterus. No ptosis. Neck: trach + Cardiovascular: S1, S2 normal. Respiratory: no wheeze or rhonchi GI: Soft, non-tender; bowel sounds normal. No peritoneal signs Musculoskeletal: No pedal edema, no cyanosis. Skin: No rash or abscess Hem/Lymphatic: No palpable cervical or supraclavicular nodes. No lymphangitis Psych: pleasant, not agitated Neurological: Awake, alert. - Constitutional Vitals: Vital Signs Temp Pulse Resp BP Pulse Ox 98.1 F 74 18 121/76 99 07/18/19 06:09 07/17/19 22:31 07/18/19 11:31 07/18/19 06:09 07/18/19 11:31 Temperature -Last 24 Hours Temperature 98.1 F Temperature 98.1 F Temperature 98.2 F - Labs CBC & Chem 7: 07/17/19 14:44 07/17/19 14:44 Labs: Abnormal lab results 07/17/19 07/17/19 Range/Units 14:44 14:44 RDW 16.7 H (13.2-15.2) % Seg Neuts % (Manual) 78.0 H (40.0-70.0) % Lymphocytes # (Manual) 0.9 L (1.2-5.4) K/mm3 Sodium 134 L (137-145) mmol/L Chloride 96.0 L (98-107) mmol/L Carbon Dioxide 20 L (22-30) mmol/L BUN 5 L (7-17) mg/dL Creatinine 0.4 L (0.7-1.2) mg/dL Glucose 63 L (65-100) mg/dL Phosphorus 2.10 L (2.5-4.5) mg/dL
--- NOTE | 2019-07-18 15:22 | Progress Note ---
Assessment and Plan Assessment and plan: 58-year-old woman who presented from assisted with difficulty breathing. The patient was apparently found in respiratory distress and having cough after eating breakfast at the assisted. Discharge was noted from the [facility] site, and patient was hypoxic to 80% even on supplemental oxygen, she was brought to the hospital by EMS. Diagnosis; chronic respiratory failure status post trach, hypertension, brain tumor status post resection, seizure disorder, debility pneumonia/aspiration pneumonia Continue antibiotics, speech therapy consult appreciated Patient is extremely frustrated unhappy about being n.p.o. Will put on pured diet until MBS results are back. ID input appreciated. Today will be last day of antibiotics dysphagia -NPO for MBS today, meds switched IV Chest pain EKG, morphine, cardiology consult, serial trops Acute on chronic hypoxic respiratory failure Continue supplemental oxygen Malnutrition Dietitian consult appreciated Tracheostomy dependent, continue trach care has fenestrated cap and is verbal Hypertension, seizure Continue home meds DVT prophylaxis with Lovenox Disposition for MBS today. Tentative discharge back to assisted tomorrow after speech therapy has recommended appropriate modified diet for the patient History Interval history: Patient is very upset because she is hungry, has been n.p.o. for a few days now Review of systems Constitutional: No fevers, generalized weakness and malaise CVS: Chest pain has now resolved GI: No abdominal pain, no diarrhea, no vomiting, no constipation Respiratory: Continues to have nonproductive cough, with tracheal discharge, no sob Hospitalist Physical - Physical exam Narrative exam: General.: Appears chronically ill, cachectic, mild distress HEENT: Moist mucous membranes, extraocular muscles intact, no lymphadenopathy Trach noted Neck: supple Cardiac: S1-S2 heard Lungs: Crackles in both bases Abdomen: soft , nontender, nondistended, bowel sounds positive Extremities: no edema clubbing or cyanosis Skin: no rash or lesions Neurologic: no gross focal deficits Psych: calm, and cooperative - Constitutional Vitals: Temp Pulse Resp BP Pulse Ox 98.7 F 71 18 121/73 100 07/18/19 11:38 07/18/19 11:38 07/18/19 11:38 07/18/19 11:38 07/18/19 11:38 General appearance: Present: mild distress, cachectic Results - Labs CBC & Chem 7: 07/17/19 14:44 07/17/19 14:44 Labs: Laboratory Last Values WBC 6.0 K/mm3 (4.5-11.0) 07/17/19 14:44 RBC 3.99 M/mm3 (3.65-5.03) 07/17/19 14:44 Hgb 11.3 gm/dl (10.1-14.3) 07/17/19 14:44 Hct 34.3 % (30.3-42.9) 07/17/19 14:44 MCV 86 fl (79-97) 07/17/19 14:44 MCH 28 pg (28-32) 07/17/19 14:44 MCHC 33 % (30-34) 07/17/19 14:44 RDW 16.7 % (13.2-15.2) H 07/17/19 14:44 Plt Count 384 K/mm3 (140-440) 07/17/19 14:44 Lymph % (Auto) 18.9 % (13.4-35.0) 07/14/19 05:53 [facility] % (Auto) 5.8 % (0.0-7.3) 07/14/19 05:53 Eos % (Auto) 0.0 % (0.0-4.3) 07/14/19 05:53 Baso % (Auto) 0.2 % (0.0-1.8) 07/14/19 05:53 Lymph # 1.0 K/mm3 (1.2-5.4) L 07/14/19 05:53 [facility] # 0.3 K/mm3 (0.0-0.8) 07/14/19 05:53 Eos # 0.0 K/mm3 (0.0-0.4) 07/14/19 05:53 Baso # 0.0 K/mm3 (0.0-0.1) 07/14/19 05:53 Add Manual Diff Complete 07/17/19 14:44 Total Counted 100 07/17/19 14:44 Seg Neutrophils % 75.1 % (40.0-70.0) H 07/14/19 05:53 Seg Neuts % (Manual) 78.0 % (40.0-70.0) H 07/17/19 14:44 Band Neutrophils % 1.0 % 07/17/19 14:44 Lymphocytes % (Manual) 16 % (13.4-35.0) 07/17/19 14:44 Reactive Lymphs % (Man) 0 % 07/17/19 14:44 Monocytes % (Manual) 5.0 % (0.0-7.3) 07/17/19 14:44 Eosinophils % (Manual) 1.0 % (0.0-4.3) 07/17/19 14:44 Basophils % (Manual) 0 % (0.0-1.8) 07/17/19 14:44 Metamyelocytes % 0 % 07/17/19 14:44 Myelocytes % 0 % 07/17/19 14:44 Promyelocytes % 0 % 07/17/19 14:44 Blast Cells % 0 % 07/17/19 14:44 Nucleated RBC % 0.0 % (0.0-0.9) 07/17/19 14:44 Seg Neutrophils # 3.8 K/mm3 (1.8-7.7) 07/14/19 05:53 Seg Neutrophils # Man 4.7 K/mm3 (1.8-7.7) 07/17/19 14:44 Band Neutrophils # 0.1 K/mm3 07/17/19 14:44 Lymphocytes # (Manual) 0.9 K/mm3 (1.2-5.4) L 07/17/19 14:44 Abs React Lymphs (Man) 0.0 K/mm3 07/17/19 14:44 Monocytes # (Manual) 0.3 K/mm3 (0.0-0.8) 07/17/19 14:44 Eosinophils # (Manual) 0.1 K/mm3 (0.0-0.4) 07/17/19 14:44 Basophils # (Manual) 0.0 K/mm3 (0.0-0.1) 07/17/19 14:44 Metamyelocytes # 0.0 K/mm3 07/17/19 14:44 Myelocytes # 0.0 K/mm3 07/17/19 14:44 Promyelocytes # 0.0 K/mm3 07/17/19 14:44 Blast Cells # 0.0 K/mm3 07/17/19 14:44 WBC Morphology Not Reportable 07/17/19 14:44 Hypersegmented Neuts Not Reportable 07/17/19 14:44 Hyposegmented Neuts Not Reportable 07/17/19 14:44 Hypogranular Neuts Not Reportable 07/17/19 14:44 Smudge Cells Not Reportable 07/17/19 14:44 Toxic Granulation Not Reportable 07/17/19 14:44 Toxic Vacuolation Not Reportable 07/17/19 14:44 Dohle Bodies Not Reportable 07/17/19 14:44 Pelger-Huet Anomaly Not Reportable 07/17/19 14:44 Negro Rods Not Reportable 07/17/19 14:44 Platelet Estimate Appears normal 07/17/19 14:44 Clumped Platelets Not Reportable 07/17/19 14:44 Plt Clumps, EDTA Not Reportable 07/17/19 14:44 Large Platelets Not Reportable 07/17/19 14:44 Giant Platelets Not Reportable 07/17/19 14:44 Platelet Satelliting Not Reportable 07/17/19 14:44 Plt Morphology Comment Not Reportable 07/17/19 14:44 RBC Morphology Not Reportable 07/17/19 14:44 Dimorphic RBCs Not Reportable 07/17/19 14:44 Polychromasia Not Reportable 07/17/19 14:44 Hypochromasia Not Reportable 07/17/19 14:44 Poikilocytosis Not Reportable 07/17/19 14:44 Anisocytosis 1+ 07/17/19 14:44 Microcytosis Not Reportable 07/17/19 14:44 Macrocytosis Not Reportable 07/17/19 14:44 Spherocytes Not Reportable 07/17/19 14:44 Pappenheimer Bodies Not Reportable 07/17/19 14:44 Sickle Cells Not Reportable 07/17/19 14:44 Target Cells Not Reportable 07/17/19 14:44 Tear Drop Cells Not Reportable 07/17/19 14:44 Ovalocytes Few 07/17/19 14:44 Helmet Cells Not Reportable 07/17/19 14:44 [place] Bodies Not Reportable 07/17/19 14:44 [place] Rings Not Reportable 07/17/19 14:44 Leah Cells Not Reportable 07/17/19 14:44 Bite Cells Not Reportable 07/17/19 14:44 Crenated Cell Not Reportable 07/17/19 14:44 Elliptocytes Not Reportable 07/17/19 14:44 Acanthocytes (Spur) Not Reportable 07/17/19 14:44 Rouleaux Not Reportable 07/17/19 14:44 Hemoglobin C Crystals Not Reportable 07/17/19 14:44 Schistocytes Not Reportable 07/17/19 14:44 Malaria parasites Not Reportable 07/17/19 14:44 Johnson Bodies Not Reportable 07/17/19 14:44 Hem Pathologist Commnt No 07/17/19 14:44 PT 12.4 Sec. (12.2-14.9) 07/13/19 10: INR 0.95 (0.87-1.13) 07/13/19 10: APTT 38.5 Sec. (24.2-36.6) H 07/13/19 10: D-Dimer 2411.46 ng/mlDDU (0-234) H 07/13/19 10:26 Sodium 134 mmol/L (137-145) L 07/17/19 14:44 Potassium 3.9 mmol/L (3.6-5.0) 07/17/19 14:44 Chloride 96.0 mmol/L (98-107) L 07/17/19 14:44 Carbon Dioxide 20 mmol/L (22-30) L 07/17/19 14:44 Anion Gap 22 mmol/L 07/17/19 14:44 BUN 5 mg/dL (7-17) L 07/17/19 14:44 Creatinine 0.4 mg/dL (0.7-1.2) L 07/17/19 14:44 Estimated GFR > 60 ml/min 07/17/19 14:44 BUN/Creatinine Ratio 13 % 07/17/19 14:44 Glucose 63 mg/dL (65-100) L 07/17/19 14:44 Lactic Acid 1.10 mmol/L (0.7-2.0) 07/13/19 10:26 Calcium 8.4 mg/dL (8.4-10.2) 07/17/19 14:44 Phosphorus 2.10 mg/dL (2.5-4.5) L 07/17/19 14:44 Magnesium 1.90 mg/dL (1.7-2.3) 07/17/19 14:44 Total Bilirubin 0.40 mg/dL (0.1-1.2) 07/14/19 05:53 AST 15 units/L (5-40) 07/14/19 05:53 ALT 10 units/L (7-56) 07/14/19 05:53 Alkaline Phosphatase 178 units/L (35-129) H 07/14/19 05:53 Total Creatine Kinase 21 units/L (30-135) L 07/13/19 10:26 CK-MB (CK-2) < 1.0 ng/mL (0.0-4.0) 07/13/19 10:26 CK-MB (CK-2) Rel Index 4.7 (0-4) H 07/13/19 10:26 Troponin T 0.018 ng/mL (0.00-0.029) 07/17/19 14:44 Total Protein 5.8 g/dL (6.3-8.2) L D 07/14/19 05:53 Albumin 3.2 g/dL (3.9-5) L 07/14/19 05:53 Albumin/Globulin Ratio 1.2 % 07/14/19 05:53 Procalcitonin 1.12 ng/mL (<0.15) 07/15/19 04:37 Urine Color Yellow (Yellow) 07/13/19 10:58 Urine Turbidity Clear (Clear) 07/13/19 10:58 Urine pH 6.0 (5.0-7.0) 07/13/19 10:58 Ur Specific [place] 1.017 (1.003-1.030) 07/13/19 10:58 Urine Protein 100 mg/dl mg/dL (Negative) 07/13/19 10:58 Urine Glucose (UA) Neg mg/dL (Negative) 07/13/19 10:58 Urine Ketones Neg mg/dL (Negative) 07/13/19 10:58 Urine Blood Sm (Negative) 07/13/19 10:58 Urine Nitrite Neg (Negative) 07/13/19 10:58 Urine Bilirubin Neg (Negative) 07/13/19 10:58 Urine Urobilinogen < 2.0 mg/dL (<2.0) 07/13/19 10:58 Ur Leukocyte Esterase Neg (Negative) 07/13/19 10:58 Urine WBC (Auto) 7.0 /HPF (0.0-6.0) H 07/13/19 10:58 Urine RBC (Auto) 10.0 /HPF (0.0-6.0) 07/13/19 10:58 U Epithel Cells (Auto) < 1.0 /HPF (0-13.0) 07/13/19 10:58 Urine Mucus Few /HPF 07/13/19 10:58 Vancomycin Trough 18.5 ug/mL (5.0-20.0) 07/17/19 10:43 Active Medications - Current Medications Current Medications: Generic Name Dose Route Start Last Admin Trade Name Freq PRN Reason Stop Dose Admin Acetaminophen 650 mg 07/17/19 12:50 Tylenol IA Q4H PRN Pain, Mild (1-3) Albuterol 2.5 mg 07/13/19 13:10 Proventil IH Q3HRT PRN Shortness Of Breath Albuterol/Ipratropium 1 ampul 07/16/19 08:00 07/18/19 15:09 Duoneb *Not For Prn Use* IH 1 ampul TIDRT ROSE Administration Enoxaparin Sodium 40 mg 07/14/19 10:00 07/17/19 10:15 Lovenox SUB-Q 40 mg QDAY@1000 ROSE Administration Escitalopram Oxalate 10 mg 07/14/19 10:00 07/17/19 10:05 Lexapro PO Not Given DAILY ROSE Famotidine 20 mg 07/18/19 10:00 Pepcid IV DAILY [facility] Metronidazole 500 mg in 100 mls @ 100 mls/hr 07/13/19 22:00 07/18/19 07:00 Flagyl 500 Mg/100 Ml IV 100 mls/hr Q8H ROSE Administration Protocol Aztreonam 1 gm in 50 mls @ 50 mls/hr 07/14/19 12:00 07/18/19 05:50 Azactam/Ns 1 Gm/50 Ml IV 50 mls/hr Q6HR ROSE Administration Protocol Vancomycin HCl 750 mg/ Sodium 265 mls @ 166.667 mls/hr 07/14/19 12:00 07/18/19 03:25 Chloride IV 166.667 mls/hr Q12H ROSE Administration Levetiracetam 1,000 mg/ 110 mls @ 400 mls/hr 07/16/19 23:00 07/17/19 22:56 Dextrose IV 400 mls/hr Q12HR ROSE Administration Dextrose/Sodium Chloride 1,000 mls @ 100 mls/hr 07/17/19 13:00 07/18/19 03:25 D5/0.45ns IV 100 mls/hr DIRECT ROSE Administration Morphine Sulfate 2 mg 07/17/19 12:52 07/17/19 16:30 Morphine IV 2 mg Q3H PRN Administration Pain, Moderate (4-6) Ondansetron HCl 4 mg 07/17/19 12:56 Zofran IV Q6H PRN Nausea And Vomiting Sodium Chloride 10 ml 07/13/19 22:00 07/18/19 06:56 Sodium Chloride Flush Syringe 10 Ml IV 10 ml BID ROSE Administration Sodium Chloride 10 ml 07/13/19 13:10 Sodium Chloride Flush Syringe 10 Ml IV PRN PRN LINE FLUSH Sodium Chloride 1 gm 07/14/19 07:30 07/17/19 18:05 Sodium Chloride PO Not Given AC ROSE Tramadol HCl 50 mg 07/13/19 22:00 07/18/19 04:28 Ultram PO Not Given BID ROSE Nutrition/Malnutrition Assess - Dietary Evaluation Nutrition/Malnutrition Findings: Nutrition Notes Start: 07/14/19 11:13 Freq: Status: Active Protocol: Document 07/18/19 13:36 OH (Rec: 07/18/19 13:57 OH [id number]) Nutrition Notes Initial or Follow up Reassessment Other Pertinent Diagnosis s/p trach placement, h/o brain cancer s/p resection Current Diet NPO Labs/Tests Reviewed Pertinent Medications Reviewed Height 5 ft 4 in Weight 46.8 kg [place] Body Weight (kg) 54.54 BMI 17.6 Weight Status Underweight Subjective/Other Information F/U: Pt. NPO for MBS today. Pt . w/hx of silent aspiration. Burn Absent Trauma Absent Minimum of two criteria Yes Body Fat Depletion Moderate depletion (severe) Muscle Mass Moderate Depletion (severe) #1 Nutrition Diagnosis Malnutrition Etiology COPD s/p trach placement As Evidenced by Signs and Symptoms Moderate depletion of both muscle mass and body fat tissues Is patient on ventilator? No Is Patient Ambulatory and/or Out of Bed No REE-([facility]-confined to bed) 1244.604 Kcal/Kg value to use for calculation 34 Approximate Energy Requirements Using 1591 kcal/Kg Additional Notes Pro needs: 56-70g/day (1.2-1.5 g/kg BW) Fluid needs: 1 ml/kcal Nutrition Intervention Change Diet Order: Cont NPO per MD/SLT recommendation Nutrition Support: Osmolite 1.5 Goal rate 45 mL/hr Initiate TF at 15 mL/hr and advance q 8 hrs to goal rate of 45 mL/hr. Flush with 150 mL water q 4 hours Kcal 1,620 Protein (gm) 67 Fluid (mL) 822 Goal #1 Initiate TF upon placement of DOBB MIRIAM per MD/SLT recommendation Goal #2 Monitor TF initiation/ tolerance Anticipated Discharge Needs: Unknown at this time Follow-Up By: 07/20/19 Additional Comments F/U MBS results and dietary recommendations
--- NOTE | 2019-07-18 15:39 | Fluoroscopy Report ---
MODIFIED BARIUM SWALLOW INDICATION: Dysphagia TECHNIQUE: Swallowing was evaluated in the lateral position under direct fluoroscopy. FINDINGS: The patient was evaluated with thin liquids, puree and semisolid consistencies. Mild penetration was witnessed with thin liquids. No abnormality was demonstrated with puree and semi solid consistencies. No aspiration. No significant stasis. Please await the formal report by david aguilera. IMPRESSION: Mild penetration was witnessed with thin liquids. Fluoroscopic time: 1.3 minutes Number of fluoroscopic images: 1 Signer Name: Camden Beyer Jr, MD Signed: 07/18/2019 3:34 PM Workstation Name: [id number]
[2019-07-18] MEDS ORDERED: SODIUM PHOSPHATE 45 MMOL in NACL 0.9% 500 ML 500 ML IV ONE (18:33)
[2019-07-18] MEDS: ENOXAPARIN SUB-Q SCH (20:08)
[2019-07-18] MEDS: PEPCID IV SCH (20:11)
[2019-07-19] MEDS: FLAGYL 500 MG/100 ML 500 MG/100 ML BAG IV SCH (05:02)
[2019-07-19] MEDS: AZACTAM/NS 1 GM/50 ML 1 GM/50 ML VIAL IV SCH (05:02)
[2019-07-19] MEDS: DUONEB *Not for PRN Use IH SCH ×2 (08:37→14:49)
[2019-07-19] MEDS: SODIUM CHLORIDE PO SCH (08:37)
[2019-07-19] MEDS: KEPPRA 1,000 MG in D5W 100 ML IV SCH (09:00)
[2019-07-19] MEDS: ULTRAM PO SCH (11:38)
[2019-07-19] MEDS: ENOXAPARIN SUB-Q SCH (11:38)
[2019-07-19] MEDS: LEXAPRO PO SCH (11:38)
[2019-07-19] MEDS: PEPCID IV SCH (11:38)
[2019-07-19] MEDS: SODIUM CHLORIDE FLUSH SYRINGE 10 ML IV SCH (11:39)
--- NOTE | 2019-07-19 13:03 | Progress Note ---
Assessment and Plan Cardiology has been consulted for chest pain, although we are currently unable to evaluate for chest pain at this time due to mental status. DDimer elevated - chest CTA negative for PE. AMI ruled out. Echo reviewed with no significant abnormalities. Currently stable cardiac status. Nothing further to add from cardiac perspective at this time. Will sign off. The patient has been seen in conjunction with Dr. CHANDRAKANT Stewart who agrees with the assessment and plan of care. - Patient Problems (1) Chest pain Current Visit: Yes Status: Suspected (2) Acute and chronic respiratory failure Current Visit: Yes Status: Acute Qualifiers: (3) Tracheostomy in place Current Visit: Yes Status: Chronic (4) Aspiration pneumonia Current Visit: Yes Status: Acute Qualifiers: Laterality: left Lung location: lower lobe of lung (5) History of brain tumor Current Visit: Yes Status: Chronic (6) Seizure disorder Current Visit: Yes Status: Chronic (7) Debility Current Visit: Yes Status: Chronic (8) Malnutrition Current Visit: Yes Status: Chronic Qualifiers: Protein-calorie malnutrition severity: severe Subjective Date of service: 07/19/19 Principal diagnosis: cp Interval history: pt resting in bed, withdrawn and lethargic, no apparent distress. Objective Last Vital Signs Temp 97.9 F 07/19/19 04:33 Pulse 80 07/19/19 08:44 Resp 18 07/19/19 08:44 BP 136/85 07/19/19 04:33 Pulse Ox 100 07/19/19 08:47 - Physical Examination General: No Apparent Distress HEENT: Positive: PERRL Neck: Positive: neck supple, trachea midline Cardiac: Positive: Reg Rate and Rhythm, S1/S2, S3 Lungs: Positive: Decreased Breath Sounds, Other (trach in situ) Neuro: Positive: Other (withdrawn, trach in place) Abdomen: Negative: Tender Skin: Negative: Rash Musculoskeletal: No Pain Extremities: Absent: edema - Imaging and Cardiology EKG: report reviewed, image reviewed Echo: pending - EKG Sinus rhythms and dysrhythmias: sinus rhythm
[2019-07-19 13:30] VITALS: BP 121/67
--- NOTE | 2019-07-19 13:47 | Discharge Summary ---
Providers - Providers Date of Admission: 07/13/19 13:10 Date of discharge: 07/19/19 Attending physician: MAURICIO SONG 07/13/19 13:12 Speech Therapy Evaluation and Treat [CONS] Routine Reason For Exam: swallow evaluation, dietary recommendations 07/13/19 16:52 Consult to Wound/ET Nurse [CONS] Routine Reason For Exam: wound eval/ marco a area 07/13/19 19:37 Speech Therapy Eval for Passy-A[place] Valve [CONS] Routine Reason For Exam: pt states pt wears at [facility] 07/14/19 10:32 Consult to Physician [CONS] Routine Comment: Consulting Provider: VICTOR MANUEL LACKEY Physician Instructions: Reason For Exam: PNA, sepsis 07/14/19 10:34 Consult to Dietitian/Nutrition [CONS] Routine Physician Instructions: Reason For Exam: Reason for Consult: Malnutrition 07/16/19 10:50 Speech Therapy Evaluation and Treat [CONS] Routine Reason For Exam: dysphagia 07/17/19 13:17 Consult to Cardiology [CONS] Routine Consulting Provider: LENCHO ROME Reason For Exam: chest pain Primary care physician: SUR[employer]YOR [employer] HELPER Hospitalization Condition: Stable Hospital course: pneumonia/aspiration pneumonia Continue antibiotics, speech therapy consult appreciated Patient is extremely frustrated unhappy about being n.p.o. Will put on pured diet until MBS results are back. ID input appreciated. Today will be last day of antibiotics dysphagia -NPO for MBS today, meds switched IV Chest pain EKG, morphine, cardiology consult, serial trops Acute on chronic hypoxic respiratory failure Continue supplemental oxygen Severe Malnutrition Dietitian consult appreciated, supportive care Tracheostomy dependent, continue trach care has fenestrated cap and is verbal Hypertension, seizure Continue home meds Disposition: DC/[place]-03 SNF [facility] Time spent for discharge: 34 min Core Measure Documentation - Palliative Care Palliative Care/ Comfort Measures: Not Applicable - Core Measures Any of the following diagnoses?: none Exam - Constitutional Vitals: Temp Pulse Resp BP Pulse Ox 97.3 F L 71 18 121/67 96 07/19/19 11:54 07/19/19 11:54 07/19/19 11:54 07/19/19 11:54 07/19/19 11:54 General appearance: Present: no acute distress, cachectic, disheveled, other (tracheostomy) - EENT Eyes: Present: PERRL, EOM intact - Neck Neck: Present: supple, normal ROM - Respiratory Respiratory effort: normal Respiratory: bilateral: diminished, negative: rales, rhonchi, wheezing - Cardiovascular Rhythm: regular Heart Sounds: Present: S1 & S2 - Extremities Extremities: no ischemia, No edema - Abdominal General gastrointestinal: Present: soft, non-tender, non-distended, normal bowel sounds - Integumentary Integumentary: Present: clear, warm - Musculoskeletal Musculoskeletal: generalized weakness - Psychiatric Psychiatric: cooperative - Neurologic Neurologic: other (residual weakness) Plan Activity: advance as tolerated, fall precautions Diet: other (puree diet as tolerated) Special Instructions: physical therapy Additional Instructions: Fall precautions. Aspiration precautions Follow up with: PRIMARY CARE, [Primary Care Provider] - 3-5 Days IRWIN CARRILLO MD [Staff Physician] - 7 Days
--- NOTE | 2019-07-19 15:58 | Progress Note ---
Assessment and Plan Cultures: 07/13/2019 blood culture: No growth 07/13/2019 urine culture: No significant growth 07/14/2019 blood culture: no growth Resp culture: in process. A/P: 58 y/o female with history of COPD, chronic respiratory failure s/p trach, dementia, hypertension, who was recently admitted on 06/28/2019 due to be found in respiratory distress at her [facility] and low sats in the 50s, procal came back normal so she received a short course of abx and was d/sebastian back. Now readmitted: 1) Bilateral pneumonia, left worse compared to right, likely secondary to aspiration pneumonia: noted on CT and CXR with lung infiltrates. Also history concerning for aspiration at [place]. Procalcitonin high: 1.12 on admission. 2) Acute on chronic respiratory failure: Status post tracheostomy. 3) Malnutrition 4) Multiple antibiotic allergies: Cannot confirm the allergies given her baseline dementia and confusion. Recs: abx d/sebastian. Stable from ID standpoint. MaryA nne Jolly MD, FACP [facility] ([facility]) C: [phone] O: [phone] F: [phone] Subjective Date of service: 07/19/19 Principal diagnosis: cp Interval history: No fever. No distress. On trach collar. Objective - Exam Narrative Exam: Physical Exam: Constitutional: awake, alert, no distress. Cachexia Head, Ears, Nose: Normocephalic, atraumatic. External ears, nose normal Eyes: Conjunctivae/corneas clear. No icterus. No ptosis. Neck: trach + Cardiovascular: S1, S2 normal. Respiratory: no wheeze or rhonchi GI: Soft, non-tender; bowel sounds normal. No peritoneal signs Musculoskeletal: No pedal edema, no cyanosis. Skin: No rash or abscess Hem/Lymphatic: No palpable cervical or supraclavicular nodes. No lymphangitis Neurological: Awake, alert. - Constitutional Vitals: Vital Signs Temp Pulse Resp BP Pulse Ox 97.3 F L 78 16 121/67 98 07/19/19 11:54 07/19/19 14:50 07/19/19 14:50 07/19/19 11:54 07/19/19 15:42 Temperature -Last 24 Hours Temperature 97.3 F Temperature 97.9 F Temperature 98.0 F Temperature 97.0 F - Labs CBC & Chem 7: 07/17/19 14:44 07/17/19 14:44 Labs: Abnormal lab results 07/18/19 07/19/19 Range/Units 17:49 07:35 Phosphorus 1.90 L 1.70 L (2.5-4.5) mg/dL
[2019-07-19] MEDS ORDERED: KEPPRA PO SCH (22:00)
[2019-07-20] MEDS ORDERED: PEPCID PO SCH (10:00)
== END 2019-07-19 16:00 | DRG 177 ==
LOC: ED 09:36 → 3A 13:10
PROVIDERS: ADMIT Internal Medicine; ATTEND Internal Medicine
PROC: 4A033R1 Measurement of Arterial Saturation, Peripheral, Percutaneous Approach (ICD-10-PCS; principal; 2019-07-13)
PROC: 3E0234Z Introduction of Serum, Toxoid and Vaccine into Muscle, Percutaneous Approach (ICD-10-PCS; 2019-07-14)
DX: J69.0 Pneumonitis due to inhalation of food and vomit (principal); E43 Unspecified severe protein-calorie malnutrition; J96.21 Acute and chronic respiratory failure with hypoxia; Z68.1 Body mass index [BMI] 19.9 or less, adult; I10 Essential (primary) hypertension; R13.10 Dysphagia, unspecified; G40.909 Epilepsy, unspecified, not intractable, without status epilepticus; J44.9 Chronic obstructive pulmonary disease, unspecified; F03.90 Unspecified dementia, unspecified severity, without behavioral disturbance, psychotic disturbance, mood disturbance, and anxiety; E83.39 Other disorders of phosphorus metabolism; M19.90 Unspecified osteoarthritis, unspecified site; F41.9 Anxiety disorder, unspecified; E03.9 Hypothyroidism, unspecified; K21.9 Gastro-esophageal reflux disease without esophagitis; R00.0 Tachycardia, unspecified; Z93.0 Tracheostomy status; Z88.1 Allergy status to other antibiotic agents; Z88.2 Allergy status to sulfonamides; Z79.899 Other long term (current) drug therapy; Z23 Encounter for immunization
CPT/HCPCS: 36415; 71045; 71275; 74230; 80048; 80053; 80202; 81001; 82140; 82550; 82553; 83735; 84100; 84145; 84484; 85007; 85025; 85379; 85610; 85730; 87040; 87070; 87086; 87205; 90686; 90732; 93005; 93010; 93306; 94640; 94760; 96361; 96365; 96375; G0378; J1630; J1650; J1953; J2270; J2930; J3370; J7030; J7040; J7050; Q0162; Q9967

== ENCOUNTER 2019-08-03 09:29 | Emergency (ER) | payer MEDICARE, OTHER ==
[2019-08-03] MEDS ORDERED: SODIUM CHLORIDE 0.9% 1000 ML 1,000 ML IV ONE (10:15)
--- NOTE | 2019-08-03 10:15 | Emergency Department Report ---
Minor Respiratory - HPI Chief Complaint: Dyspnea/Respdistress Stated Complaint: DIFFICULTY BREATHING Time Seen by Provider: 08/03/19 10:07 Duration: 1 Day Pain Location: Chest Severity: severe Minor Respiratory: No Rhinorrhea, No Sore Throat, No Able to Tolerate Fluids, No Ear Pain, No Cough, No Sick Contacts, No Hemoptysis, No Chest Pain, No Shortness of Breath, No Fever Other History: 58 yo known to us come to ER from SNF with her trach dislodged. Stridor on admit. Trach replaced without difficulty. No 4 cuffless ED Review of Systems ROS: Stated complaint: DIFFICULTY BREATHING Other details as noted in HPI Comment: All other systems reviewed and negative ED Past Medical Hx - Past Medical History Previous Medical History?: Yes Hx Hypertension: Yes Hx CVA: No Hx Heart Attack/AMI: No Hx Congestive Heart Failure: No Hx Diabetes: No Hx Deep Vein Thrombosis: No Hx Pulmonary Embolism: No Hx GERD: Yes Hx Liver Disease: No Hx Renal Disease: No Hx Sickle Cell Disease: No Hx Arthritis: Yes Hx Headaches / Migraines: No Hx Seizures: Yes Hx Kidney Stones: No Hx Psychiatric Treatment: No Hx Asthma: No Hx COPD: Yes Hx Tuberculosis: No Hx Dementia: No Hx HIV: No Additional medical history: L hip fx. hypotension. hearing loss. respiratory failure. dysphagia. muscle weakness. anxiety. hypo-osmolality hyponatremia. lack of coordination. osteoarthitis. BRAIN TUMOR REMOVED 1990 AT [facility] - SINCE THEN DEBILITY BUT WAS ABLE TO WALK PRIOR TO FALL AND FRACTURE SUMMER 2018- THIS WAS WHEN SHE FELL, HAD SZ, AND WAS TRACHED. - Surgical History Past Surgical History?: Yes Additional Surgical History: trach 2019. BRAIN TUMOR RESECTION 1990 AT [facility] - Family History Family history: no significant - Social History Smoking Status: Unknown if ever smoked Substance Use Type: None - Medications Home Medications: Home Medications Medication Instructions Recorded Confirmed Last Taken Type Acetaminophen [Acetaminophen TAB] 650 mg PO Q6H 06/28/19 07/13/19 07/12/19 History Escitalopram [Lexapro] 10 mg PO DAILY 06/28/19 07/13/19 07/12/19 History Ipratropium/Albuterol Sulfate 1 ampul IH Q6HR 06/28/19 07/13/19 07/12/19 History [DUONEB *Not for PRN Use*] Metoprolol [Lopressor TAB] 25 mg PO BID 06/28/19 07/13/19 07/12/19 History Ondansetron [Zofran TAB] 4 mg PO Q6HR PRN 06/28/19 07/13/19 07/12/19 History Sodium Chloride 1 gm PO AC 06/28/19 07/13/19 07/12/19 History levETIRAcetam [Keppra TAB] 1,000 mg PO BID 06/28/19 07/13/19 07/12/19 History traMADol [Ultram 50 MG tab] 50 mg PO BID 06/28/19 07/13/19 07/12/19 History Famotidine [Pepcid] 20 mg PO QDAY tablet 07/04/19 07/13/19 07/12/19 Rx Famotidine [Pepcid] 20 mg PO DAILY tablet 07/19/19 Unknown Rx Minor Respiratory Exam - Exam General: Vital signs noted. No distress. Alert and acting appropriately. HEENT: No Pharyngeal Erythema, No Pharyngeal Exudates, No Moist Mucous Membranes, No Rhinorrhea, No Conjuctival Injection, No Frontal Tenderness, No Maxillary Tenderness Ear: Neither TM Bulge, Neither TM Erythema, Neither EAC Pain, Neither EAC Discharge Neck: Yes Supple, No Adenopathy Lungs: No Good Air Exchange, No Wheezes, No Ronchi, No Stridor, No Cough, No Labored Respirations, No Retractions, No Use of Accessory Muscles, No Other Abnormal Lung Sounds Heart: Yes Regular, No Murmur Abdomen: Yes Normal Bowel Sounds, No Tenderness, No Peritoneal Signs Skin: No Rash, No Edema Neurologic: Alert and oriented, no deficits. Musculoskeletal: Unremarkable. ED Course Vital Signs 08/03/19 08/03/19 09:39 09:43 Temperature 97.8 F Pulse Rate 95 H Respiratory 12 Rate Blood Pressure 98/42 O2 Sat by Pulse 98 97 Oximetry - Procedure Description Procedures done: INSERTION OF NO 4 CUFFLESS TRACH ED Medical Decision Making - Lab Data Result diagrams: 08/03/19 10:40 08/03/19 10:40 - Radiology Data Radiology results: report reviewed, image reviewed - Medical Decision Making Labs 08/03/19 08/03/19 10:40 10:40 WBC 3.5 L RBC 3.99 Hgb 11.3 Hct 35.2 MCV 88 MCH 28 MCHC 32 RDW 17.8 H Plt Count 284 Lymph % (Auto) 33.5 [place] % (Auto) 10.4 H Eos % (Auto) 3.7 Baso % (Auto) 1.4 Lymph # 1.2 [place] # 0.4 Eos # 0.1 Baso # 0.0 Seg Neutrophils % 51.0 Seg Neutrophils # 1.8 Sodium 135 L Potassium 3.9 Chloride 96.3 L Carbon Dioxide 26 Anion Gap 17 BUN 5 L Creatinine 0.5 L Estimated GFR > 60 BUN/Creatinine Ratio 10 Glucose 82 Calcium 9.0 Total Bilirubin 0.30 AST 20 ALT 10 Alkaline Phosphatase 163 H Total Protein 7.0 Albumin 3.3 L Albumin/Globulin Ratio 0.9 Vital Signs 08/03/19 08/03/19 08/03/19 09:39 09:43 10:26 Temperature 97.8 F Pulse Rate 95 H 102 H Respiratory 12 16 Rate Blood Pressure 98/42 Blood Pressure 99/53 [Left] O2 Sat by Pulse 98 97 100 Oximetry 08/03/19 11:22 Temperature Pulse Rate 86 Respiratory 16 Rate Blood Pressure Blood Pressure 109/56 [Left] O2 Sat by Pulse 100 Oximetry Pt comes to ER with trach dislodged stridor on admit airway management on arrival trach replaced no 4 cuffless shiley RT to bedside for respiratory treatment xray noted labs noted 1L NS while in ER VSS during monitoring in ER. dc back to SNF with pcp follow up - Differential Diagnosis TRACH DISLODGED Critical Care Time: Yes Critical care time in (mins) excluding proc time.: 35 Critical care attestation.: If time is entered above; I have spent that time in minutes in the direct care of this critically ill patient, excluding procedure time. Critical Care Time: 35 MIN SPENT WITH CRITICAL CARE- AIRWAY EVALUATION, MANAGEMENT, TREATMENT ED Disposition Clinical Impression: Tracheostomy dependent, Trachea displaced Disposition: DC-01 TO HOME OR SELFCARE Is pt being admited?: No Does the pt Need Aspirin: No Condition: Stable Additional Instructions: PLEASE TAKE APPROPRIATE PRECAUTIONS TO PREVENT THIS FROM HAPPENING PT SHOULD SEE HER PRIMARY CARE- AT SNF- THIS WEEK FOR REEVAL. NOTIFY THE FAMILY OF EVENTS AND COMPLETE APPROPRIATE INCIDENT REPORT Referrals: [facility] [Outside] - 3-5 Days Time of Disposition: 11:28
--- NOTE | 2019-08-03 11:00 | XRay Report ---
CHEST 1 VIEW INDICATION: Shortness of breath. COMPARISON: 07/17/2019 FINDINGS: Support devices: None. Heart: Within normal limits. Lungs/Pleura: No acute air space or interstitial disease. Previously described left lung infiltration has resolved. Additional findings: The bony structures are osteopenic. IMPRESSION: No acute findings. Signer Name: Camden Beyer Jr, MD Signed: 08/03/2019 10:55 AM Workstation Name: [id number]
[2019-08-03 11:10] LABS: Basophils % (Auto) 1.4 % (0.0-1.8); Eosinophils # (Auto) 0.1 K/mm3 (0.0-0.4); Eosinophils % (Auto) 3.7 % (0.0-4.3); Hematocrit 35.2 % (30.3-42.9); Hemoglobin 11.3 gm/dl (10.1-14.3); Lymphocytes # (Auto) 1.2 K/mm3 (1.2-5.4); Lymphocytes % (Auto) 33.5 % (13.4-35.0); Mean Corpuscular HGB Conc 32 % (30-34); Mean Corpuscular Volume 88 fl (79-97); Monocytes # (Auto) 0.4 K/mm3 (0.0-0.8); Monocytes % (Auto) 10.4 % (0.0-7.3); Platelet Count 284 K/mm3 (140-440); Red Blood Count 3.99 M/mm3 (3.65-5.03); Red Cell Distribution Width 17.8 % (13.2-15.2)
[2019-08-03 11:38] LABS: Alanine Aminotransferase 10 units/L (7-56); Albumin 3.3 g/dL (3.9-5); BUN/Creatinine Ratio 10; Blood Urea Nitrogen 5 mg/dL (7-17); Hemolysis Index 22
[2019-08-03 11:44] VITALS: BP 90/52
== END 2019-08-03 12:33 | disposition home or self-care (01) ==
LOC: ED 09:29
DX: J95.09 Other tracheostomy complication (principal); I10 Essential (primary) hypertension; M19.90 Unspecified osteoarthritis, unspecified site; J44.9 Chronic obstructive pulmonary disease, unspecified; Z88.1 Allergy status to other antibiotic agents; Z88.5 Allergy status to narcotic agent
CPT/HCPCS: 36415; 71045; 80053; 85025; 99291; J7030; 99284